=== PATIENT | female | born 1935 | race Caucasian/White ===

== ENCOUNTER → 2016-05-22 | Outpatient (REF) | payer MEDICARE, OTHER ==
[~2016-05-22] MED LIST: ALLEGRA PO; ASTELIN; CALCCHW12 OR; COLA100C2 OR; COUM2.5T11 PO; DULE200A INH; FEMARA PO; FISHCAP PO; FLEEENE4 PR; FLON0.05; FOSAMAX PO; KEFLEX PO; LASIX PO; LISI10TA4 OR; LOTRISONE CREAM TOP; MILKSUS PO; MIRA3350 PO; PERCOCET PO; PRIL20CA9 PO; PRIL40CA OR; SENO8.6T10 PO; TYLE167L PO; VENTAER IN; XANAX PO
[2016-05-22 12:41] LABS: ALBUMIN 3.7 GM/DL (3.2-5.2); ALBUMIN/GLOBULIN RATIO 1.19 (1.00-1.93); ALKALINE PHOSPHATASE 61 U/L (45-117); ALT/SGPT 17 U/L (12-78); ANION GAP 4 MEQ/L (8-16); AST/SGOT 15 U/L (15-37); BILIRUBIN,TOTAL 0.5 MG/DL (0.2-1.0); BLOOD UREA NITROGEN 15 MG/DL (7-18); CALCIUM LEVEL 9.9 MG/DL (8.8-10.2); CARBON DIOXIDE LEVEL 31 MEQ/L (21-32); CHLORIDE LEVEL 107 MEQ/L (98-107); CHOLESTEROL LEVEL 190 MG/DL (<200); CREATININE FOR GFR 0.88 MG/DL (0.55-1.02); GLOMERULAR FILTRATION RATE > 60.0 (>39); GLUCOSE, FASTING 98 MG/DL (83-110); POTASSIUM SERUM 4.5 MEQ/L (3.5-5.1); SODIUM LEVEL 142 MEQ/L (136-145); TOTAL PROTEIN 6.8 GM/DL (6.4-8.2); TRIGLYCERIDES LEVEL 114 MG/DL (<150)
== END ==
LOC: M SFHCPLAZ 08:53
PROVIDERS: ATTEND Internal Medicine
DX: I10 Essential (primary) hypertension (principal); E78.00 Pure hypercholesterolemia, unspecified

== ENCOUNTER → 2016-06-15 | Outpatient (CLI) | payer MEDICARE, BC, OTHER ==
--- NOTE | 2016-06-15 11:50 | REPMRS ---
Patient History The patient states she had a clinical breast exam in 2015.Patient is postmenopausal and has history of breast cancer at age 71. Family history of colorectal cancer in maternal grandfather at age 50 or over and colorectal cancer in mother at age 50 or over. Digital Mammo Screening Bilat: June 15, 2016 - Exam #: [id number] Bilateral CC and MLO view(s) were taken. Technologist: Chela Brumfield, Technologist Prior study comparison: June 12, 2015, bilateral digital mammo screening bilat performed at [facility]. May 22, 2014, bilateral digital mammo screening bilat performed at [facility]. FINDINGS: The breast tissue is heterogeneously dense. This may lower the sensitivity of mammography. There has been no change in the appearance of the mammogram from the prior studies. There is a moderate amount of residual fibroglandular tissue which is fairly symmetric. There is no interval development of dominant mass, areas of architectural distortion, or clustered microcalcification typical of malignancy. ASSESSMENT: BI-RADS/ACR category 1 mammogram. Negative. Recommendation Routine screening mammogram in 1 year (for women over age 40). This mammogram was interpreted with the aid of an FDA-approved computer-aided dectection system. Electronically Signed By: Hardy Benedict MD 06/15/16 [id number]
== END ==
LOC: M RAD 10:04
PROVIDERS: ATTEND Internal Medicine
DX: Z12.31 Encounter for screening mammogram for malignant neoplasm of breast (principal); Z85.3 Personal history of malignant neoplasm of breast; M85.80 Other specified disorders of bone density and structure, unspecified site; Z78.0 Asymptomatic menopausal state

== ENCOUNTER → 2016-06-22 | Outpatient (CLI) | payer MEDICARE, BC ==
--- NOTE | 2016-06-24 08:51 | DEXA ---
AP SPINE L1 - L4 1.117 -0.6 1.2 LT FEMUR TOTAL 0.824 -1.5 0.4 RT FEMUR TOTAL 0.851 -1.2 0.7 TOTAL BODY TOTAL OTHER DUAL FEMUR FRAX* ASSESSMENT Risk factors: Family history (parent hip fracture). 10 year probability of fracture Major osteoporotic fracture 16.3 % Hip fracture 7.1 % COMMENTS: Normal bone densitometry of the spine and hips. The increased density of the spine does not represent a significant change. The decreased density of the left hip does represent a significant change. The decreased density of the right hip does represent a significant change. The density of the spine has increased 0.2% since the initial exam on 2000. The spine density has increased 1.5% since the most recent exam on 06/05/2010. The density of the left hip has decreased 20.7% since the initial exam on 2000. The density of the left hip has decreased 14.4% since the most recent exam on . The density of the right hip has decreased 18.1% since the initial exam on 11/12. The density of the right hip has decreased 10.1% since the most recent exam on 06/05/2010. FOLLOW-UP: Recommendation for the next bone density exam: 5 years. ARNAV
== END ==
LOC: M WHC 12:55
PROVIDERS: ATTEND Internal Medicine
DX: M85.80 Other specified disorders of bone density and structure, unspecified site (principal); Z78.0 Asymptomatic menopausal state

== ENCOUNTER → 2016-07-08 | Outpatient (CLI) | payer MEDICARE, BC ==
--- NOTE | 2016-07-09 05:31 | RADONC ---
RADIATION ONCOLOGY FOLLOWUP NOTE: DATE: 07/08/2016 CHART NUMBER: [id number]. DIAGNOSIS: Left breast cancer. STAGE: I A, [id number]. ECOG PERFORMANCE STATUS: Zero. FOLLOWUP NOTE: Ms. 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 The patient presents today reporting that she is doing quite well with no complaints at this time related to her radiation therapy or disease. She has no breast or bone pain. REVIEW OF SYSTEMS: The patient's review of systems is noncontributory. Denies nausea, vomiting, fevers, chills, night sweats, diplopia, headaches, anxiety or depression, anorexia, weight loss, visual disturbances, chest pain, urinary or bowel difficulties, bone pain, or neurological problems. PHYSICAL EXAMINATION: The patient is a well-developed, well-nourished, white female in no acute distress. HEENT exam is normocephalic, atraumatic. Extraocular movements are intact. There is no palpable cervical, supraclavicular, infraclavicular, axillary, or inguinal lymphadenopathy present. Lungs are clear to auscultation and percussion. Heart has a regular rate and rhythm. Abdomen is benign with no hepatosplenomegaly, masses, or tenderness. Breast examination reveals no masses or discharge bilaterally. Skeletal examination reveals no tenderness to pressure or percussion of the bony skeleton. Extremities reveal no clubbing, cyanosis, or edema. Neurologic exam is grossly intact, as is the remainder of the physical examination. ASSESSMENT: The patient is clinically NAVEED at this time and will be seen by us again in 1 year for further followup. She will also continue to be followed by her other physicians as well. cc: Olegario Kenney MD
== END ==
LOC: M ONCR 13:12
PROVIDERS: ATTEND Radiology Radiation Oncology
DX: C50.912 Malignant neoplasm of unspecified site of left female breast (principal)

== ENCOUNTER 2016-09-22 09:30 | Outpatient (CLI) | payer MEDICARE, BC, OTHER ==
[~2016-09-22] VITALS: Ht 167.6 cm; Wt 65.3 kg
[~2016-09-22 09:30] MED LIST changes: +ALBU83IN INH; +CALC600T60 PO; -COUM2.5T11 PO; +COUM2.5T17 PO; +FLON1SPR; +KEFL500C17 PO; +PENN1SOL2 TD
[2016-09-22] MEDS ORDERED: NS 1,000 ML IV ONE (09:45)
[2016-09-22] MEDS ORDERED: PROPOFOL 200 MG/20 ML VIAL As Ordered ONE (10:49)
[2016-09-22] MEDS ORDERED: LIDOCAINE 2% INJ 100 MG/5 ML SDV (FOR ANES.) As Ordered ONE (10:49)
--- NOTE | 2016-09-22 11:10 | ROOR ---
Patient Name: Ashley Rubio Procedure Date: 09/22/2016 10:48 AM Date of : 1935 Age: 80 Room: [facility] Gender: Female Note Status: Finalized Procedure: Upper Endoscopy + Biopsies Indications: Dysphagia, Heartburn Providers: Alex Phillips MD Referring MD: Olegario Kenney MD Requesting Provider: Medicines: Monitored Anesthesia Care Complications: No immediate complications. Procedure: Pre-Anesthesia Assessment: - The heart rate, respiratory rate, oxygen saturations, blood pressure, adequacy of pulmonary ventilation, and response to care were monitored throughout the procedure. The Endoscope was introduced through the mouth, and advanced to the second part of duodenum. The upper GI endoscopy was accomplished without difficulty. The patient tolerated the procedure well. Findings: The Z-line was irregular and was found 40 cm from the incisors. A medium-sized hiatal hernia was present. Diffuse moderate inflammation characterized by adherent blood, congestion (edema), erosions and erythema was found in the entire examined stomach. Biopsies were taken with a cold forceps for Helicobacter pylori testing. The exam of the duodenum was otherwise normal. Impression: - Z-line irregular, 40 cm from the incisors. - Medium-sized hiatal hernia. - Acute gastritis. Biopsied. - The examination was otherwise normal. Recommendation: - Discharge patient to home. - High fiber diet. - Follow an antireflux regimen. - Continue present medications. - Await pathology results. - Telephone GI clinic for pathology results in 1 week. - The findings and recommendations were discussed with the patient's family. Alex Phillips MD Alex Phillips MD 09/22/2016 11:09:48 AM This report has been signed electronically. Number of Addenda: 0 Note Initiated On: 09/22/2016 10:48 AM Estimated Blood Loss: Estimated blood loss: none.
--- NOTE | 2016-09-22 11:28 | ROOR ---
Patient Name: Ashley Rubio Procedure Date: 09/22/2016 10:49 AM Date of : 1935 Age: 80 Room: [facility] Gender: Female Note Status: Finalized Procedure: Total Colonoscopy to Cecum Indications: Screening patient at increased risk: Family history of colorectal cancer in multiple 1st-degree relatives, Last colonoscopy: 2011 Providers: Alex Phillips MD Referring MD: Olegario Kenney MD Requesting Provider: Medicines: Monitored Anesthesia Care Complications: No immediate complications. Procedure: Pre-Anesthesia Assessment: - The heart rate, respiratory rate, oxygen saturations, blood pressure, adequacy of pulmonary ventilation, and response to care were monitored throughout the procedure. The Colonoscope was introduced through the anus and advanced to the cecum, identified by appendiceal orifice and ileocecal valve. The colonoscopy was performed without difficulty. The patient tolerated the procedure well. Findings: The perianal and digital rectal examinations were normal. Non-bleeding internal hemorrhoids were found during retroflexion. The hemorrhoids were small and Grade I (internal hemorrhoids that do not prolapse). Multiple small and large-mouthed diverticula were found in the recto-sigmoid colon, sigmoid colon and descending colon. The exam was otherwise without abnormality on direct and retroflexion views. Impression: - Non-bleeding internal hemorrhoids. - Diverticulosis in the recto-sigmoid colon, in the sigmoid colon and in the descending colon. - The examination was otherwise normal on direct and retroflexion views. - No specimens collected. - The exam was otherwise normal to the cecum. Recommendation: - Patient has a contact number available for emergencies. The signs and symptoms of potential delayed complications were discussed with the patient. Return to normal activities tomorrow. Written discharge instructions were provided to the patient. - High fiber diet. - Discharge patient to home. - Continue present medications. - Repeat colonoscopy for symptoms only. - Return to referring physician. - The findings and recommendations were discussed with the patient's family. Alex Phillips MD Alex Phillips MD 09/22/2016 11:28:18 AM This report has been signed electronically. Number of Addenda: 0 Note Initiated On: 09/22/2016 10:49 AM Estimated Blood Loss: Estimated blood loss: none.
[2016-09-22 11:50] VITALS: BP 134/67
[2016-12-23] MEDS ORDERED: AMLO5TAB2 PO (17:31)
[2016-12-23] MEDS ORDERED: PLAV1TAB2 PO (17:31)
[2016-12-23] MEDS ORDERED: ZETI10TA30 PO (17:31)
[2016-12-23] MEDS ORDERED: PERC5TAB12 PO (19:10)
== END 2016-09-22 12:10 ==
LOC: M OPP 09:30
PROVIDERS: ATTEND Internal Medicine Gastroenterology
DX: Z12.11 Encounter for screening for malignant neoplasm of colon (principal); K64.0 First degree hemorrhoids; K57.30 Diverticulosis of large intestine without perforation or abscess without bleeding; Z80.0 Family history of malignant neoplasm of digestive organs; R12 Heartburn; R13.10 Dysphagia, unspecified; K22.8 Other specified diseases of esophagus; K44.9 Diaphragmatic hernia without obstruction or gangrene; K29.70 Gastritis, unspecified, without bleeding; M19.90 Unspecified osteoarthritis, unspecified site; E78.5 Hyperlipidemia, unspecified; M54.9 Dorsalgia, unspecified; L30.9 Dermatitis, unspecified; R51 Headache; Z78.0 Asymptomatic menopausal state; J44.9 Chronic obstructive pulmonary disease, unspecified; K21.9 Gastro-esophageal reflux disease without esophagitis; H26.9 Unspecified cataract; J45.909 Unspecified asthma, uncomplicated; Z85.3 Personal history of malignant neoplasm of breast; Z92.3 Personal history of irradiation; Z87.891 Personal history of nicotine dependence; Z88.8 Allergy status to other drugs, medicaments and biological substances; Z79.899 Other long term (current) drug therapy; Z80.1 Family history of malignant neoplasm of trachea, bronchus and lung
CPT/HCPCS: 43239; 88305; G0105

== ENCOUNTER → 2016-12-04 | Outpatient (REF) | payer MEDICARE, OTHER ==
[~2016-12-04] MED LIST changes: +ACET50TAOT PO; +AMLO5TAB2 PO; +CALCCHW8 PO; +PERC5TAB12 PO; +PLAV1TAB2 PO; +REFR0.5D8 OU; +VENTAER INH; +ZETI10TA30 PO
[2016-12-04 11:48] LABS: MEAN CORPUSCULAR HEMOGLOBIN 31.4 pg (27.0-33.0); MEAN CORPUSCULAR VOLUME 95.1 fl (80.0-96.0); PLATELET COUNT, AUTOMATED 209 10^3/uL (150-450); WHITE BLOOD COUNT 5.8 10^3/uL (4.0-10.0)
[2016-12-04 13:06] LABS: ALBUMIN 3.6 GM/DL (3.2-5.2); ALBUMIN/GLOBULIN RATIO 1.13 (1.00-1.93); ALKALINE PHOSPHATASE 64 U/L (45-117); ALT/SGPT 15 U/L (12-78); ANION GAP 7 MEQ/L (8-16); AST/SGOT 16 U/L (15-37); BILIRUBIN,TOTAL 0.5 MG/DL (0.2-1.0); BLOOD UREA NITROGEN 12 MG/DL (7-18); CALCIUM LEVEL 9.7 MG/DL (8.8-10.2); CARBON DIOXIDE LEVEL 29 MEQ/L (21-32); CHLORIDE LEVEL 102 MEQ/L (98-107); GLOMERULAR FILTRATION RATE > 60.0 (>39); GLUCOSE, FASTING 92 MG/DL (83-110); MAGNESIUM LEVEL 2.1 MG/DL (1.8-2.4); POTASSIUM SERUM 4.5 MEQ/L (3.5-5.1); SODIUM LEVEL 138 MEQ/L (136-145); TOTAL PROTEIN 6.8 GM/DL (6.4-8.2)
== END ==
LOC: M SFHCPLAZ 09:44
PROVIDERS: ATTEND Internal Medicine
DX: Z85.3 Personal history of malignant neoplasm of breast (principal); I10 Essential (primary) hypertension

== ENCOUNTER 2016-12-06 13:24 | Emergency (ER) | payer MEDICARE, BC, OTHER ==
[~2016-12-06] VITALS: Ht 165.1 cm; Wt 64.4 kg
[~2016-12-06 13:24] MED LIST changes: -ACET50TAOT PO; -AMLO5TAB2 PO; -CALCCHW8 PO; -PERC5TAB12 PO; -PLAV1TAB2 PO; -REFR0.5D8 OU; -VENTAER INH; -ZETI10TA30 PO
[2016-12-06 14:41] LABS: BASO # 0.1 10^3/uL (0.0-0.2); BASO % 0.8 % (0.0-1.0); EOS % 0.7 % (0.0-3.0); IMMATURE GRANULOCYTE % 0.2 % (0-0); LYMPH # 1.3 10^3/uL (1.5-4.5); LYMPH % 21.5 % (24.0-44.0); MEAN CORPUSCULAR HEMOGLOBIN 31.4 pg (27.0-33.0); MEAN CORPUSCULAR HGB CONC 33.7 g/dl (32.0-36.5); MEAN CORPUSCULAR VOLUME 93.1 fl (80.0-96.0); MONO # 0.4 10^3/uL (0.0-0.8); MONO % 6.2 % (0.0-5.0); NEUTROPHILS # 4.3 10^3/uL (1.8-7.7); NEUTROPHILS % 70.6 % (36.0-66.0); PLATELET COUNT, AUTOMATED 195 10^3/uL (150-450); RED CELL DISTRIBUTION WIDTH 12.9 % (11.5-14.5); WHITE BLOOD COUNT 6.1 10^3/uL (4.0-10.0)
--- NOTE | 2016-12-06 14:50 | REP ---
Portable chest, 02:09 p.m., single frontal view: Comparison 08/30/2015. The lung gonzalez are clear. The cardiac size is normal. The neri, mediastinum, and bony thorax are unremarkable. Impression: Negative portable chest. Signed by Hardy Dial MD 12/06/2016 02:22 P
--- NOTE | 2016-12-06 14:50 | REP ---
CT of the brain without IV contrast: There are no comparisons. There is no hemorrhage. There is no edema, mass effect or midline shift. The cortical stripe is unremarkable. The ventricles and sulci are dilated compatible with diffuse volume loss. There are bilateral subdural hygromas in the frontal areas bilaterally. The visualized paranasal sinuses and mastoid air cells are clear. Impression: There is no hemorrhage, acute infarct or mass. There is diffuse volume loss and there are bilateral frontal subdural hygromas. Signed by Hardy Dial MD 12/06/2016 02:18 P
[2016-12-06 14:52] LABS: INR 0.93
[2016-12-06 15:05] LABS: ALBUMIN 3.5 GM/DL (3.2-5.2); ALBUMIN/GLOBULIN RATIO 1.06 (1.00-1.93); ALKALINE PHOSPHATASE 61 U/L (45-117); ALT/SGPT 16 U/L (12-78); ANION GAP 6 MEQ/L (8-16); AST/SGOT 17 U/L (15-37); BILIRUBIN,DIRECT < 0.1 MG/DL (0.0-0.2); BILIRUBIN,TOTAL 0.4 MG/DL (0.2-1.0); BLOOD UREA NITROGEN 13 MG/DL (7-18); CALCIUM LEVEL 9.7 MG/DL (8.8-10.2); CARBON DIOXIDE LEVEL 29 MEQ/L (21-32); CHLORIDE LEVEL 104 MEQ/L (98-107); CREATININE FOR GFR 0.77 MG/DL (0.55-1.02); GLOMERULAR FILTRATION RATE > 60.0 (>39); GLUCOSE, FASTING 94 MG/DL (83-110); POTASSIUM SERUM 4.4 MEQ/L (3.5-5.1); SODIUM LEVEL 139 MEQ/L (136-145); TOTAL PROTEIN 6.8 GM/DL (6.4-8.2)
[2016-12-06] MEDS ORDERED: VENTAER INH (16:29)
[2016-12-06] MEDS ORDERED: ACET50TAOT PO (16:29)
[2016-12-06] MEDS ORDERED: CALCCHW8 PO (16:29)
[2016-12-06] MEDS ORDERED: REFR0.5D8 OU (16:29)
[2016-12-06] MEDS ORDERED: ASPIRIN 325 MG TAB PO ONE (16:30)
[2016-12-06] MEDS ORDERED: hydrALAZINE INJ 20 MG/ML VIAL IV ONE (17:15)
[2016-12-06] MEDS ORDERED: hydrALAZINE INJ 20 MG/ML VIAL IV STA (19:38)
--- NOTE | 2016-12-06 19:40 | REPUSA ---
CLINICAL HISTORY: CVA. TECHNIQUE: Three dimensional fobe-ck-eyahyj angiography is performed of the [place]. The anatoliy dy was performed without IV contrast agent. FINDINGS: The supraclinoid portions of the internal carotid arteries are of normal shape. The normal bifurcation is seen. The middle cerebral arteries are unremarkable in appearance. There is absence o f A1 segment of left HENNA, a common congenital variant. The posterior circulation is visualized and s hows no evidence of occlusion or aneurysm formation. The basilar tip is seen and shows no aneurysm fo rmation. There is no evidence of beading to suggest vasculitis. 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 MRA of the [place] is otherwise within normal limits. Thank you for your kind referral of this patient.
[2016-12-06] MEDS ORDERED: amLODIPine 5 MG TAB PO ONE (19:45)
--- NOTE | 2016-12-06 19:50 | REPUSA ---
CLINICAL HISTORY: CVA. TECHNIQUE: MRI of the brain was performed without administration of intravenous contrast material. T1 spine echo, T2 fast spin echo, DWI and FLAIR sequences were obtained in sagittal, axial and coronal planes. FINDINGS: Evidence of empty sella. The parasellar regions are unremarkable in appearance. The corpus callosum a nd cerebellar tonsils are of normal configuration and position. There are no intra or extra-axial col lections. There is no mass effect or midline shift. There is no evidence of hematoma formation. There is no hydrocephalus. There is no evidence of restricted diffusion. The brain stem shows no mass effects, infarcts or hemorrhage. There are no cerebellopontine tumors. T he acoustic nerves are symmetrical. No cerebellar intra-axial pathology delineated. The fourth ventri román and aqueduct are normal. No abnormalities of the optic nerves are identified. No dural or subdura l masses or collections are detected. There is evidence for generalized symmetrical dilatation of the ventricles and cortical sulci consist ent with parenchymal atrophy. There are bilateral periventricular and subcortical T2 and FLAIR hyperintensities compatible with chr onic white matter ischemic disease. The visualized arterial structures demonstrate normal appearing flow voids. The VII and VIII nerve bu ndles are visualized and are unremarkable in appearance. Mucosal thickening is seen involving bilateral ethmoid and maxillary sinuses compatible with chronic sinusitis. IMPRESSION: 1. Generalized age-appropriate parenchymal atrophy. Empty sella. 2. Bilateral periventricular and subcortical white matter chronic ischemic changes. 3. Chronic ethmoid and maxillary sinusitis. 4. No evidence of acute intracranial pathology. Thank you for your kind referral of this patient.
[2016-12-06 19:53] VITALS: BP 176/77
--- NOTE | 2016-12-06 20:46 | CR.PDOC ---
[facility] Consultation Consultation DATE OF CONSULTATION: Dec 06, 2016 at 20:30 PRIMARY CARE PHYSICIAN: Dr. Kenney REFERRING PROVIDER: Dr. Thakkar ATTENDING PHYSICIAN: Dr. Thakkar REASON FOR CONSULTATION/CHIEF COMPLAINT: HTN, elevated troponin PRIMARY CARE PROVIDER: Dr. Kenney ATTENDING: Dr. Philippe Ye CHIEF COMPLAINT: Right facial numbness HISTORY OF PRESENT ILLNESS: 81-year-old female past medical history of hypertension, spinal stenosis with right lower extremity radiculopathy, GERD, anxiety/depression, history of left- sided breast cancer who presents with generalized weakness/ Chest tightness. On presentation, patient complaining of right sided facial numbness the V2 region/jaw. Patient states she had chest tightness however this was difficult to explain, with associated nausea. Occurred at the same time she had facial numbness. She denies any pleuritic component. Nonreproducible. Never had CP before. Still persistent. ED had spoken to Dr. Alexandre tao for MRI of the brain. PAST MEDICAL HISTORY: As per HPI PAST SURGICAL HISTORY: Knee surgery, bunionectomy, cholecystectomy, EGD/ colonoscopy SOCIAL HISTORY: Denies alcohol. Occasionally smokes tobacco. No illicit drugs. FAMILY HISTORY: Family history of colon cancer in the mother and brother ALLERGIES: Please see below. REVIEW OF SYSTEMS: HEENT: Denies sore throat/headache CARDIOVASCULAR: + Chest tightness. No palpitations RESPIRATORY: Denies shortness of breath/cough GASTROINTESTINAL: denies nausea/vomiting GENITOURINARY: Denies dysuria/urinary urgency. MUSCULOSKELETAL: Denies myalgias/arthralgias NEUROLOGICAL: Denies any focal weakness HOME MEDICATIONS: Please see below. PHYSICAL EXAMINATION: Vitals: (see below) General: No acute distress, laying comfortably in bed. HEENT: Moist mucous membranes. Neck: No JVD or lymphadenopathy Cardiac: RRR, No murmurs Pulm: Diminished breath sounds at the bases b/l. No wheezing, rhonchi Abd: NT/ND + BS Ext: No edema or cyanosis Neuro: Strength 5/5 BUE and BLE. CN 2-12 intact. With the exception of numbness in V2. No dysarthria or aphasia. F to N intact Negative pronator drift. Negative Babinki. Sensation to fine touch/pinprick intact. NIH 0 LABORATORY DATA: See below. IMAGING: MRI brain 12/06/16 IMPRESSION: 1. Generalized age-appropriate parenchymal atrophy. Empty sella. 2. Bilateral periventricular and subcortical white matter chronic ischemic changes. 3. Chronic ethmoid and maxillary sinusitis. 4. No evidence of acute intracranial pathology. 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 MRA of the [place] is otherwise within normal limits. CT head 12/06/16 Impression: There is no hemorrhage, acute infarct or mass. There is diffuse volume loss and there are bilateral frontal subdural hygromas. MICROBIOLOGY: Please see below. ASSESSMENT/PLAN: 1. NSTEMI/ACS - patient states she has a history of hypertension and is not on any medications. Pt has chest tightness, which is slightly improved. Was given ASA in the ED. Would recommend statin/bb. Spoke with Dr. Grant who recommends transfer to [facility] for cardiac cath. MRI Brain with no CVA. Further recommendation by Director Translational at [facility] prior to transfer. Discussed the above with Dr. Thakkar who will facilitate transfer. 2. HTN- uncontrolled. Would recommended better control of her BP. I have given her Hydralazine IV and started her on amlodipine. 3. Spinal stenosis with chronic lower back pain with right lower extremity radiculopathy at baseline- Will need PT 4. History of left-sided breast cancer with chronic musculoskeletal pain under left breast 5. GERD on PPI 6. History of anxiety/depression continue home meds. Vital Signs/I&O Vital Signs Date Time Temp Pulse Resp B/P (MAP) Pulse Ox O2 Delivery O2 Flow Rate FiO2 12/06/16 19:53 176/77 12/06/16 17:17 52 98 12/06/16 13:47 98.9 18 Room Air Laboratory Data Labs 24H Laboratory Tests 2 12/06/16 14:18: Immature Granulocyte % (Auto) 0.2H, White Blood Count 6.1, Red Blood Count 3.92L , Hemoglobin 12.3, Hematocrit 36.5, Mean Corpuscular Volume 93.1, Mean Corpuscular Hemoglobin 31.4, Mean Corpuscular Hemoglobin Concent 33.7, Red Cell Distribution Width 12.9, Platelet Count 195, Neutrophils (%) (Auto) 70.6H, Lymphocytes (%) (Auto) 21.5L, Monocytes (%) (Auto) 6.2H, Eosinophils (%) (Auto) 0.7, Basophils (%) (Auto) 0.8, Neutrophils # (Auto) 4.3, Lymphocytes # (Auto) 1.3L, Monocytes # (Auto) 0.4, Eosinophils # (Auto) 0.0, Basophils # (Auto) 0.1, Immature Granulocyte # (Auto) 0.0, Nucleated Red Blood Cells % (auto) 0.0, Prothrombin Time 12.5, Prothromb Time International Ratio 0.93, Activated Partial Thromboplast Time 25.3L, Anion Gap 6L, Glomerular Filtration Rate > 60.0 , Calcium Level 9.7, Aspartate Amino Transf (AST/SGOT) 17, Alanine Aminotransferase (ALT/SGPT) 16, Alkaline Phosphatase 61, Total Bilirubin 0.4, Direct Bilirubin < 0.1, Total Creatine Kinase 76, Creatine Kinase MB 1.7, Creatine Kinase MB Relative Index 2.23, Troponin I 0.28H, Total Protein 6.8, Albumin 3.5, Albumin/Globulin Ratio 1.06, Lipase 185 12/06/16 19:44: Total Creatine Kinase 91, Creatine Kinase MB 2.9, Creatine Kinase MB Relative Index 3.18, Troponin I 1.20#H CBC/BMP Laboratory Tests 12/06/16 14:18 Red Blood Count 3.92 L, Mean Corpuscular Volume 93.1, Mean Corpuscular Hemoglobin 31.4, Mean Corpuscular Hemoglobin Concent 33.7, Red Cell Distribution Width 12.9, Neutrophils (%) (Auto) 70.6 H, Lymphocytes (%) (Auto) 21.5 L, Monocytes (%) (Auto) 6.2 H, Eosinophils (%) (Auto) 0.7, Basophils (%) ( Auto) 0.8, Neutrophils # (Auto) 4.3, Lymphocytes # (Auto) 1.3 L, Monocytes # ( Auto) 0.4, Eosinophils # (Auto) 0.0, Basophils # (Auto) 0.1 Allergies Coded Allergies: ENVIROMENTAL (Verified Allergy, Unknown, 07/06/07) Letrozole (Unverified Adverse Reaction, Unknown, elevated cholesterol, elevated BP, 09/16/16) Home Medications Scheduled (Calcium 1200 0226-2800 mg-Unit) 1 Chw Chw, 1 CHW PO DAILY, (Reported) Omeprazole (Prilosec) 20 Mg Cap, 40 MG PO DAILY, (Reported) Scheduled PRN (Flonase Allergy Relief) 50 Mcg/Act Spr, 50 MCG NA BID PRN for CONGESTION, ( Reported) (Pennsaid) 2 % [place]aima, 2 % TD QID PRN for BACK PAIN, (Reported) Acetaminophen (Acetaminophen) 500 Mg Tab, 500 MG PO for PAIN, (Reported) Albuterol Sulfate (Albuterol Sulfate) 2.5 Mg/3 Ml Nebu, 2.5 MG INH QID PRN for WHEEZING, (Reported) Albuterol Sulfate (Ventolin Hfa) 108 Mcg/Act Aer, 2 PUFFS INH QID PRN for SHORTNESS OF BREATH, (Reported) Carboxymethylcellulose Sodium (Refresh Tears) 0.5 % Julio, 1 DROP OU for DRY EYES, (Reported) Polyethylene Glycol (Miralax) 1 Pow Pow, 1 PACK PO DAILYPRN PRN for CONSTIPATION , (Reported) DEBO GORDON MD Dec 06, 2016 20:46
[2016-12-06] MEDS ORDERED: NS 1,000 ML IV SCH (21:00)
[2016-12-06] MEDS ORDERED: ONDANSETRON 4MG/2ML VIAL (J2405) IV ONE (21:30)
[2016-12-06] MEDS ORDERED: MORPHINE 4 MG/ML 1ML SYRINGE IV ONE (21:30)
[2016-12-06] MEDS ORDERED: NITROGLYCERIN 0.4 MG SUBL TABLET SL PRN (22:15)
[2016-12-06] MEDS ORDERED: NS 500 ML IV ONE (22:30)
[2016-12-06 22:48] VITALS: BP 107/53
--- NOTE | 2016-12-07 20:59 | ECGEPIP ---
Stationary ECG Study 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
--- NOTE | 2016-12-07 21:05 | ECGEPIP ---
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
[2016-12-23] MEDS ORDERED: AMLO5TAB2 PO (17:31)
[2016-12-23] MEDS ORDERED: ZETI10TA30 PO (17:31)
[2016-12-23] MEDS ORDERED: PLAV1TAB2 PO (17:31)
[2016-12-23] MEDS ORDERED: PERC5TAB12 PO (19:10)
== END 2016-12-06 22:52 | disposition short-term general hospital (02) ==
LOC: EDBD 13:24 → M ED 13:24
DX: I21.4 Non-ST elevation (NSTEMI) myocardial infarction (principal); I67.82 Cerebral ischemia; Q04.8 Other specified congenital malformations of brain; J32.0 Chronic maxillary sinusitis; J32.2 Chronic ethmoidal sinusitis; R20.2 Paresthesia of skin; I10 Essential (primary) hypertension; J44.9 Chronic obstructive pulmonary disease, unspecified; E78.4 Other hyperlipidemia
CPT/HCPCS: 70450; 70544; 70551; 71010; 80048; 80076; 82550; 82553; 83690; 84484; 85025; 85610; 85730; 86850; 86900; 86901; 93005; 93041; 94760; 96374; 96375; 96376; 99285; J2405

== ENCOUNTER → 2017-01-14 | Outpatient (REF) | payer MEDICARE, OTHER ==
[~2017-01-14] MED LIST changes: +ACET50TAOT PO; +AMLO5TAB2 PO; +CALCCHW8 PO; +PERC5TAB12 PO; +PLAV1TAB2 PO; +REFR0.5D8 OU; +VENTAER INH; +ZETI10TA30 PO
[2017-01-14 13:25] LABS: BLOOD UREA NITROGEN 12 MG/DL (7-18); GLOMERULAR FILTRATION RATE > 60.0 (>39)
== END ==
LOC: M LABDRAW1 10:17
PROVIDERS: ATTEND Physical Medicine & Rehabilitation
DX: M48.061 Spinal stenosis, lumbar region without neurogenic claudication (principal)

== ENCOUNTER → 2017-01-22 | Outpatient (REF) | payer MEDICARE, OTHER ==
[2017-01-22 16:35] LABS: INR 0.89
== END ==
LOC: M LABDRAW1 15:55
PROVIDERS: ATTEND Specialist
DX: Z01.818 Encounter for other preprocedural examination (principal); M51.36 Other intervertebral disc degeneration, lumbar region

== ENCOUNTER → 2017-02-10 | Outpatient (REF) | payer MEDICARE, OTHER ==
[2017-02-10 11:17] LABS: MEAN CORPUSCULAR HEMOGLOBIN 31.6 pg (27.0-33.0); MEAN CORPUSCULAR VOLUME 92.9 fl (80.0-96.0); PLATELET COUNT, AUTOMATED 241 10^3/uL (150-450); RED CELL DISTRIBUTION WIDTH 13.2 % (11.5-14.5); WHITE BLOOD COUNT 6.2 10^3/uL (4.0-10.0)
[2017-02-10 12:06] LABS: ALBUMIN 3.8 GM/DL (3.2-5.2); ALBUMIN/GLOBULIN RATIO 1.12 (1.00-1.93); ALKALINE PHOSPHATASE 46 U/L (45-117); ALT/SGPT 13 U/L (12-78); ANION GAP 9 MEQ/L (8-16); AST/SGOT 15 U/L (7-37); BILIRUBIN,TOTAL 0.5 MG/DL (0.2-1.0); BLOOD UREA NITROGEN 15 MG/DL (7-18); CARBON DIOXIDE LEVEL 28 MEQ/L (21-32); CHLORIDE LEVEL 100 MEQ/L (98-107); CHOLESTEROL LEVEL 178 MG/DL (<200); CREATININE FOR GFR 0.77 MG/DL (0.55-1.02); GLOMERULAR FILTRATION RATE > 60.0 (>39); GLUCOSE, FASTING 95 MG/DL (83-110); MAGNESIUM LEVEL 2.1 MG/DL (1.8-2.4); POTASSIUM SERUM 4.2 MEQ/L (3.5-5.1); SODIUM LEVEL 137 MEQ/L (136-145); TOTAL PROTEIN 7.2 GM/DL (6.4-8.2); TRIGLYCERIDES LEVEL 113 MG/DL (<150)
== END ==
LOC: M SFHCPLAZ 09:32
PROVIDERS: ATTEND Internal Medicine
DX: E78.00 Pure hypercholesterolemia, unspecified (principal); Z85.3 Personal history of malignant neoplasm of breast; I10 Essential (primary) hypertension

== ENCOUNTER → 2017-03-02 | Outpatient (REF) | payer MEDICARE, OTHER ==
[2017-03-02 16:40] LABS: CREATININE FOR GFR 0.83 MG/DL (0.55-1.02); GLOMERULAR FILTRATION RATE > 60.0 (>39)
[2017-03-02 16:40] LABS: BLOOD UREA NITROGEN 12 MG/DL (7-18)
== END ==
LOC: M LABDRAW1 14:53
DX: M48.061 Spinal stenosis, lumbar region without neurogenic claudication (principal)
CPT/HCPCS: 82565

== ENCOUNTER → 2017-03-31 | Outpatient (CLI) | payer MEDICARE, OTHER | LOC: M RAD 09:02 | DX: R91.8 Other nonspecific abnormal finding of lung field (principal) | CPT/HCPCS: 71250 ==

== ENCOUNTER → 2017-04-07 | Outpatient (CLI) | payer MEDICARE, BC, OTHER | LOC: M RAD 09:36 | DX: M19.011 Primary osteoarthritis, right shoulder (principal); Z85.3 Personal history of malignant neoplasm of breast; Z96.653 Presence of artificial knee joint, bilateral; Z78.0 Asymptomatic menopausal state | CPT/HCPCS: 78306 ==

== ENCOUNTER 2017-05-06 10:43 | Emergency (ER) | payer MEDICARE, BC, OTHER ==
[2017-05-06] MEDS: NS 1,000 ML IV (11:04)
[2017-05-06 11:30] LABS: BASO # 0.1 10^3/uL (0.0-0.2); BASO % 1.1 % (0.0-1.0); EOS % 0.4 % (0.0-3.0); HEMATOCRIT 36.7 % (36.0-47.0); HEMOGLOBIN 12.7 g/dl (12.0-16.0); IMMATURE GRANULOCYTE % 0.4 % (0-3.0); LYMPH # 1.2 10^3/uL (1.5-4.5); LYMPH % 20.4 % (24.0-44.0); MEAN CORPUSCULAR HEMOGLOBIN 32.6 pg (27.0-33.0); MEAN CORPUSCULAR HGB CONC 34.6 g/dl (32.0-36.5); MEAN CORPUSCULAR VOLUME 94.3 fl (80.0-96.0); MONO # 0.3 10^3/uL (0.0-0.8); NEUTROPHILS # 4.1 10^3/uL (1.8-7.7); NEUTROPHILS % 71.7 % (36.0-66.0); PLATELET COUNT, AUTOMATED 207 10^3/uL (150-450); RED BLOOD COUNT 3.89 10^6/uL (4.00-5.40); RED CELL DISTRIBUTION WIDTH 12.9 % (11.5-14.5); WHITE BLOOD COUNT 5.7 10^3/uL (4.0-10.0)
[2017-05-06 11:42] LABS: INR 0.94; PARTIAL THROMBOPLASTIN TIME 23.4 SECONDS (26.8-37.9); PROTHROMBIN TIME 12.6 SECONDS (12.4-14.5)
[2017-05-06 11:54] LABS: ALBUMIN 3.8 GM/DL (3.2-5.2); ALBUMIN/GLOBULIN RATIO 1.09 (1.00-1.93); ALKALINE PHOSPHATASE 49 U/L (45-117); ALT/SGPT 10 U/L (12-78); ANION GAP 6 MEQ/L (8-16); AST/SGOT 12 U/L (7-37); BILIRUBIN,DIRECT < 0.1 MG/DL (0.0-0.2); BILIRUBIN,TOTAL 0.4 MG/DL (0.2-1.0); BLOOD UREA NITROGEN 12 MG/DL (7-18); CALCIUM LEVEL 9.4 MG/DL (8.8-10.2); CARBON DIOXIDE LEVEL 27 MEQ/L (21-32); CHLORIDE LEVEL 102 MEQ/L (98-107); CPK CREATINE PHOSPHOKINASE 66 U/L (26-192); GLUCOSE, FASTING 97 MG/DL (70-100); POTASSIUM SERUM 4.2 MEQ/L (3.5-5.1); SODIUM LEVEL 135 MEQ/L (136-145); TOTAL PROTEIN 7.3 GM/DL (6.4-8.2); TROPONIN I < 0.02 NG/ML (< 0.10)
[2017-05-06 11:58] LABS: CK-MB VALUE MASS 1.1 NG/ML (<3.6); CREATININE FOR GFR 0.81 MG/DL (0.55-1.30); GLOMERULAR FILTRATION RATE > 60.0 (>39); MB/CK RELATIVE INDEX 1.66 (< OR =4)
[2017-05-06] MEDS: IPRATROPIUM 0.5MG/ALBUTEROL 2.5MG INH SOL UD 3ML (DUONEB)(J7620) NEB (12:02)
[2017-05-06] MEDS: MECLIZINE 25 MG TABLET PO (13:33)
== END 2017-05-06 13:51 | disposition home or self-care (01) ==
LOC: M ED 10:43
DX: M54.9 Dorsalgia, unspecified (principal); R42 Dizziness and giddiness; J44.9 Chronic obstructive pulmonary disease, unspecified; K21.9 Gastro-esophageal reflux disease without esophagitis; F41.9 Anxiety disorder, unspecified; F17.200 Nicotine dependence, unspecified, uncomplicated; Z79.01 Long term (current) use of anticoagulants; Z79.899 Other long term (current) drug therapy; Z88.8 Allergy status to other drugs, medicaments and biological substances; Z91.048 Other nonmedicinal substance allergy status; Z87.19 Personal history of other diseases of the digestive system; Z86.73 Personal history of transient ischemic attack (TIA), and cerebral infarction without residual deficits; Z98.890 Other specified postprocedural states
CPT/HCPCS: 71045

== ENCOUNTER → 2017-05-25 | Outpatient (CLI) | payer MEDICARE, OTHER | LOC: M PAIN 14:00 | DX: M47.817 Spondylosis without myelopathy or radiculopathy, lumbosacral region (principal); G89.29 Other chronic pain; H81.10 Benign paroxysmal vertigo, unspecified ear; E78.00 Pure hypercholesterolemia, unspecified; I10 Essential (primary) hypertension; R73.01 Impaired fasting glucose; J44.9 Chronic obstructive pulmonary disease, unspecified; M19.90 Unspecified osteoarthritis, unspecified site; K21.9 Gastro-esophageal reflux disease without esophagitis; M85.80 Other specified disorders of bone density and structure, unspecified site; F17.200 Nicotine dependence, unspecified, uncomplicated; Z79.01 Long term (current) use of anticoagulants; Z79.899 Other long term (current) drug therapy; Z88.8 Allergy status to other drugs, medicaments and biological substances; Z96.651 Presence of right artificial knee joint; Z95.9 Presence of cardiac and vascular implant and graft, unspecified; Z86.73 Personal history of transient ischemic attack (TIA), and cerebral infarction without residual deficits; Z85.3 Personal history of malignant neoplasm of breast | CPT/HCPCS: G0463 ==

== ENCOUNTER → 2017-06-09 | Outpatient (REF) | payer MEDICARE, OTHER ==
[2017-06-09 12:14] LABS: ALBUMIN 3.7 GM/DL (3.2-5.2); ALBUMIN/GLOBULIN RATIO 1.12 (1.00-1.93); ALKALINE PHOSPHATASE 55 U/L (45-117); ALT/SGPT 13 U/L (12-78); ANION GAP 4 MEQ/L (8-16); AST/SGOT 16 U/L (7-37); BILIRUBIN,TOTAL 0.4 MG/DL (0.2-1.0); BLOOD UREA NITROGEN 15 MG/DL (7-18); CALCIUM LEVEL 9.6 MG/DL (8.8-10.2); CARBON DIOXIDE LEVEL 31 MEQ/L (21-32); CHLORIDE LEVEL 104 MEQ/L (98-107); CREATININE FOR GFR 0.83 MG/DL (0.55-1.30); GLOMERULAR FILTRATION RATE > 60.0 (>39); GLUCOSE, FASTING 91 MG/DL (70-100); MAGNESIUM LEVEL 2.4 MG/DL (1.8-2.4); POTASSIUM SERUM 4.1 MEQ/L (3.5-5.1); SODIUM LEVEL 139 MEQ/L (136-145)
== END ==
LOC: M SFHCPLAZ 09:38
DX: I10 Essential (primary) hypertension (principal)
CPT/HCPCS: 83735

== ENCOUNTER → 2017-06-16 | Outpatient (REF) | payer MEDICARE, OTHER ==
[2017-06-16 12:51] LABS: RHEUMATOID FACTOR QUANT < 10.0 IU/ML (<15.0)
[2017-06-16 12:51] LABS: C REACTIVE PROTEIN QUANTITATIV < 0.30 MG/DL (0.00-0.30)
[2017-06-16 13:01] LABS: ERYTHROCYTE SEDIMENTATION RATE 23 mm/hr (0-30)
[2017-06-18 00:07] LABS: CYCLIC CITRULLINATED PEPTIDE 6 units (0-19)
[2017-06-18 00:07] LABS: ANA (HEP2) Positive (.); Lyme Disease IgG/IgM Antibodie <0.91 ISR (0.00-0.90); Lyme Disease IgM Ab Quantitati <0.80 index (0.00-0.79)
== END ==
LOC: M SFHCPLAZ 09:35
DX: M15.0 Primary generalized (osteo)arthritis (principal)
CPT/HCPCS: 86140

== ENCOUNTER 2017-06-29 10:29 | Inpatient (IN) | payer MEDICARE, BC, OTHER ==
[2017-06-29] MEDS: OMEPRAZOLE 20 MG CAP PO (09:00)
[2017-06-29] MEDS ORDERED: ALBUTEROL SULFATE 2.5 MG/0.5 ML INH NEB SOLN As Ordered (10:33)
[2017-06-29] MEDS ORDERED: IPRATROPIUM 0.5MG/ALBUTEROL 2.5MG INH SOL UD 3ML (DUONEB)(J7620) As Ordered (10:33)
[2017-06-29] MEDS: IPRATROPIUM 0.5MG/ALBUTEROL 2.5MG INH SOL UD 3ML (DUONEB)(J7620) NEB (10:43)
[2017-06-29] MEDS: ALBUTEROL SULFATE 2.5 MG/0.5 ML INH NEB SOLN INH (10:43)
[2017-06-29] MEDS: NS 500 ML IV (10:45)
[2017-06-29] MEDS: methylPREDNISolone INJ 125 MG/2 ML VIAL (J2930) IV (10:45)
[2017-06-29] MEDS: ONDANSETRON 4MG/2ML VIAL (J2405) IV (11:00)
[2017-06-29 11:08] LABS: BASO # 0.1 10^3/uL (0.0-0.2); EOS # 0.1 10^3/uL (0.0-0.50); EOS % 1.4 % (0.0-3.0); HEMATOCRIT 31.6 % (36.0-47.0); HEMOGLOBIN 10.9 g/dl (12.0-15.5); IMMATURE GRANULOCYTE % 0.4 % (0-3.0); LYMPH % 19.7 % (24.0-44.0); MEAN CORPUSCULAR HEMOGLOBIN 32.4 pg (27.0-33.0); MEAN CORPUSCULAR HGB CONC 34.5 g/dl (32.0-36.5); MONO # 0.4 10^3/uL (0.0-0.8); NEUTROPHILS # 3.5 10^3/uL (1.8-7.7); NEUTROPHILS % 70.5 % (36.0-66.0); PLATELET COUNT, AUTOMATED 207 10^3/uL (150-450); RED BLOOD COUNT 3.36 10^6/uL (4.00-5.40); RED CELL DISTRIBUTION WIDTH 12.6 % (11.5-14.5)
[2017-06-29] MEDS: MORPHINE 2 MG/ML 1ML SYRINGE (J2270) IV ×2 (11:12→12:27)
[2017-06-29 11:19] LABS: INR 0.93; PROTHROMBIN TIME 12.5 SECONDS (12.4-14.5)
[2017-06-29 11:28] LABS: ALBUMIN 3.2 GM/DL (3.2-5.2); ALBUMIN/GLOBULIN RATIO 0.91 (1.00-1.93); ALKALINE PHOSPHATASE 54 U/L (45-117); ALT/SGPT 29 U/L (12-78); ANION GAP 5 MEQ/L (8-16); AST/SGOT 26 U/L (7-37); BILIRUBIN,DIRECT 0.1 MG/DL (0.0-0.2); BILIRUBIN,TOTAL 0.4 MG/DL (0.2-1.0); BLOOD UREA NITROGEN 11 MG/DL (7-18); CARBON DIOXIDE LEVEL 26 MEQ/L (21-32); CHLORIDE LEVEL 104 MEQ/L (98-107); CPK CREATINE PHOSPHOKINASE 177 U/L (26-192); CREATININE FOR GFR 0.81 MG/DL (0.55-1.30); FREE T4 1.04 NG/DL (0.76-1.46); GLOMERULAR FILTRATION RATE > 60.0 (>39); GLUCOSE, FASTING 93 MG/DL (70-100); LIPASE 164 U/L (73-393); POTASSIUM SERUM 4.7 MEQ/L (3.5-5.1); SODIUM LEVEL 135 MEQ/L (136-145); TOTAL PROTEIN 6.7 GM/DL (6.4-8.2); TROPONIN I 0.06 NG/ML (< 0.10)
[2017-06-29 11:34] LABS: CK-MB VALUE MASS 2.8 NG/ML (<3.6); MB/CK RELATIVE INDEX 1.58 (< OR =4); NT-PRO BNP 2014 PG/ML (<450)
[2017-06-29] MEDS: FUROSEMIDE 20 MG/2 ML VIAL (J1940) IV (12:27)
[2017-06-29] MEDS: GI COCKTAIL 50ML BTL(HYOSCYAMINE/MAALOX/LIDOCAINE VISCOUS)(1:3:1) PO (12:57)
[2017-06-29] MEDS ORDERED: ALBUTEROL SULFATE 2.5 MG/0.5 ML INH NEB SOLN NEB (13:45)
[2017-06-29] MEDS ORDERED: ISOVUE-370 76% 100ML VIAL (Q9967) As Ordered (13:50)
[2017-06-29] MEDS ORDERED: FLUTICASONE PROP 0.05% NASAL SPRAY 16 GM (FLONASE) (15:30)
[2017-06-29] MEDS: BISACODYL 5 MG TAB PO (16:38)
[2017-06-29] MEDS: CLOPIDOGREL 75 MG TAB PO (16:39)
[2017-06-29] MEDS: METOPROLOL SUCC *XL* 12.5MG PER 1/2 TAB (TopROL *XL*) PO (16:39)
[2017-06-29] MEDS: HEPARIN SOD (PORCINE) 5000 UNITS/ML VIAL SC ×2 (16:40→21:27)
[2017-06-29] MEDS: PERCOCET 5MG/325MG TAB PO (16:40)
[2017-06-29] MEDS: PARoxetine 20 MG TAB PO (17:33)
[2017-06-29 19:24] LABS: CK-MB VALUE MASS 3.4 NG/ML (<3.6); CPK CREATINE PHOSPHOKINASE 178 U/L (26-192); MB/CK RELATIVE INDEX 1.91 (< OR =4); TROPONIN I 0.06 NG/ML (< 0.10)
[2017-06-29] MEDS: EZETIMIBE 10 MG TAB (ZETIA) PO (21:26)
[2017-06-29] MEDS: ISOSORBIDE DIN. (ISORDIL) 20 MG TAB PO (21:27)
[2017-06-29] MEDS: LISINOPRIL *2.5 MG* TAB PO (21:27)
[2017-06-30] MEDS: PERCOCET 5MG/325MG TAB PO ×3 (00:11→15:45)
[2017-06-30] MEDS: ONDANSETRON 4MG/2ML VIAL (J2405) IV (00:11)
[2017-06-30] MEDS: ACETAMINOPHEN TAB 650MG DOSE (2X325MG) PO ×2 (04:50→22:57)
[2017-06-30 05:24] LABS: HEMATOCRIT 30.6 % (36.0-47.0); HEMOGLOBIN 10.2 g/dl (12.0-15.5); MEAN CORPUSCULAR HEMOGLOBIN 31.5 pg (27.0-33.0); MEAN CORPUSCULAR HGB CONC 33.3 g/dl (32.0-36.5); MEAN CORPUSCULAR VOLUME 94.4 fl (80.0-96.0); PLATELET COUNT, AUTOMATED 225 10^3/uL (150-450); RED BLOOD COUNT 3.24 10^6/uL (4.00-5.40); RED CELL DISTRIBUTION WIDTH 12.4 % (11.5-14.5)
[2017-06-30] MEDS: HEPARIN SOD (PORCINE) 5000 UNITS/ML VIAL SC ×3 (05:44→21:04)
[2017-06-30 05:46] LABS: FERRITIN 148 NG/ML (8-252); IRON (FE) 66 UG/DL (50-170); PERCENT SATURATION 28.4 % (13.2-45.0); TOTAL IRON BINDING CAPACITY 232 UG/DL (250-450)
[2017-06-30 05:49] LABS: ANION GAP 2 MEQ/L (8-16); BLOOD UREA NITROGEN 16 MG/DL (7-18); CALCIUM LEVEL 9.1 MG/DL (8.8-10.2); CARBON DIOXIDE LEVEL 30 MEQ/L (21-32); CHLORIDE LEVEL 105 MEQ/L (98-107); CK-MB VALUE MASS 3.6 NG/ML (<3.6); CPK CREATINE PHOSPHOKINASE 111 U/L (26-192); CREATININE FOR GFR 0.89 MG/DL (0.55-1.30); GLOMERULAR FILTRATION RATE > 60.0 (>39); GLUCOSE, FASTING 106 MG/DL (70-100); MAGNESIUM LEVEL 2.4 MG/DL (1.8-2.4); MB/CK RELATIVE INDEX 3.24 (< OR =4); POTASSIUM SERUM 4.9 MEQ/L (3.5-5.1); SODIUM LEVEL 137 MEQ/L (136-145); TROPONIN I 0.05 NG/ML (< 0.10)
[2017-06-30 08:58] LABS: FOLATE 4.9 NG/ML (>5.4)
[2017-06-30 09:03] LABS: VITAMIN B12 LEVEL 257 PG/ML (247-911)
[2017-06-30] MEDS: CLOPIDOGREL 75 MG TAB PO (09:12)
[2017-06-30] MEDS: OMEPRAZOLE 20 MG CAP PO (09:12)
[2017-06-30] MEDS: ISOSORBIDE DIN. (ISORDIL) 20 MG TAB PO ×2 (09:12→21:03)
[2017-06-30] MEDS: PARoxetine 20 MG TAB PO (09:13)
[2017-06-30] MEDS: METOPROLOL SUCC *XL* 12.5MG PER 1/2 TAB (TopROL *XL*) PO (09:13)
[2017-06-30] MEDS: ASPIRIN 81 MG ENTERIC TAB PO (09:13)
[2017-06-30] MEDS: METOCLOPRAMIDE HCL LIQUID 10 MG/10 ML UDC PO ×3 (12:00→21:04)
[2017-06-30] MEDS ORDERED: E-Z-PAQUE 96% w/w SUSP 176GM BTL As Ordered ×2 (14:06→15:00)
[2017-06-30] MEDS ORDERED: E-Z-HD 98% w/w 340GM SUSP BTL As Ordered (14:06)
[2017-06-30] MEDS ORDERED: E-Z-GAS II EFFERVESCENT PACKET (SODIUM BICARB./CITRIC ACID/SIMETHICONE) As Ordered (14:06)
[2017-06-30] MEDS: MIRALAX *UNIT DOSE* 17GM PACKET PO (15:45)
[2017-06-30] MEDS: BISACODYL 5 MG TAB PO (21:02)
[2017-06-30] MEDS: EZETIMIBE 10 MG TAB (ZETIA) PO (21:03)
[2017-06-30] MEDS: LISINOPRIL *2.5 MG* TAB PO (21:04)
[2017-07-01] MEDS: HEPARIN SOD (PORCINE) 5000 UNITS/ML VIAL SC ×3 (05:36→21:53)
[2017-07-01 05:54] LABS: HEMATOCRIT 29.7 % (36.0-47.0); HEMOGLOBIN 9.9 g/dl (12.0-15.5); MEAN CORPUSCULAR HEMOGLOBIN 31.6 pg (27.0-33.0); MEAN CORPUSCULAR HGB CONC 33.3 g/dl (32.0-36.5); MEAN CORPUSCULAR VOLUME 94.9 fl (80.0-96.0); PLATELET COUNT, AUTOMATED 231 10^3/uL (150-450); RED BLOOD COUNT 3.13 10^6/uL (4.00-5.40); RED CELL DISTRIBUTION WIDTH 12.4 % (11.5-14.5); WHITE BLOOD COUNT 6.1 10^3/uL (4.0-10.0)
[2017-07-01 06:18] LABS: ANION GAP 4 MEQ/L (8-16); BLOOD UREA NITROGEN 20 MG/DL (7-18); CALCIUM LEVEL 8.7 MG/DL (8.8-10.2); CARBON DIOXIDE LEVEL 29 MEQ/L (21-32); CHLORIDE LEVEL 102 MEQ/L (98-107); CREATININE FOR GFR 0.83 MG/DL (0.55-1.30); GLOMERULAR FILTRATION RATE > 60.0 (>39); GLUCOSE, FASTING 93 MG/DL (70-100); MAGNESIUM LEVEL 2.2 MG/DL (1.8-2.4); POTASSIUM SERUM 4.5 MEQ/L (3.5-5.1); SODIUM LEVEL 135 MEQ/L (136-145)
[2017-07-01] MEDS: METOCLOPRAMIDE HCL LIQUID 10 MG/10 ML UDC PO ×4 (07:31→21:52)
[2017-07-01] MEDS: OMEPRAZOLE 20 MG CAP PO (09:42)
[2017-07-01] MEDS: ISOSORBIDE DIN. (ISORDIL) 20 MG TAB PO ×2 (09:42→21:53)
[2017-07-01] MEDS: PARoxetine 20 MG TAB PO (09:42)
[2017-07-01] MEDS: METOPROLOL SUCC *XL* 12.5MG PER 1/2 TAB (TopROL *XL*) PO (09:45)
[2017-07-01] MEDS: ASPIRIN 81 MG ENTERIC TAB PO (09:45)
[2017-07-01] MEDS: CLOPIDOGREL 75 MG TAB PO (09:46)
[2017-07-01] MEDS: CYCLOBENZAPRINE 5MG TABLET PO (21:52)
[2017-07-01] MEDS: LISINOPRIL *2.5 MG* TAB PO (21:53)
[2017-07-01] MEDS: IMIPRAMINE 25 MG TAB PO (21:53)
[2017-07-01] MEDS: PERCOCET 5MG/325MG TAB PO (21:54)
[2017-07-01] MEDS: EZETIMIBE 10 MG TAB (ZETIA) PO (21:54)
[2017-07-02] MEDS: HEPARIN SOD (PORCINE) 5000 UNITS/ML VIAL SC ×3 (05:16→20:58)
[2017-07-02 06:36] LABS: HEMATOCRIT 30.5 % (36.0-47.0); HEMOGLOBIN 10.3 g/dl (12.0-15.5); MEAN CORPUSCULAR HEMOGLOBIN 31.3 pg (27.0-33.0); MEAN CORPUSCULAR HGB CONC 33.8 g/dl (32.0-36.5); MEAN CORPUSCULAR VOLUME 92.7 fl (80.0-96.0); PLATELET COUNT, AUTOMATED 242 10^3/uL (150-450); RED BLOOD COUNT 3.29 10^6/uL (4.00-5.40); RED CELL DISTRIBUTION WIDTH 12.3 % (11.5-14.5)
[2017-07-02 07:37] LABS: ANION GAP 5 MEQ/L (8-16); BLOOD UREA NITROGEN 12 MG/DL (7-18); CALCIUM LEVEL 9.2 MG/DL (8.8-10.2); CARBON DIOXIDE LEVEL 28 MEQ/L (21-32); CHLORIDE LEVEL 102 MEQ/L (98-107); GLOMERULAR FILTRATION RATE > 60.0 (>39); GLUCOSE, FASTING 91 MG/DL (70-100); MAGNESIUM LEVEL 2.2 MG/DL (1.8-2.4); SODIUM LEVEL 135 MEQ/L (136-145)
[2017-07-02] MEDS: ASPIRIN 81 MG ENTERIC TAB PO (08:39)
[2017-07-02] MEDS: METOCLOPRAMIDE HCL LIQUID 10 MG/10 ML UDC PO ×4 (08:39→20:58)
[2017-07-02] MEDS: CLOPIDOGREL 75 MG TAB PO (08:39)
[2017-07-02] MEDS: OMEPRAZOLE 20 MG CAP PO (08:39)
[2017-07-02] MEDS: METOPROLOL SUCC *XL* 12.5MG PER 1/2 TAB (TopROL *XL*) PO (08:39)
[2017-07-02] MEDS: ISOSORBIDE DIN. (ISORDIL) 20 MG TAB PO ×2 (09:59→20:59)
[2017-07-02] MEDS ORDERED: VARIBAR NECTAR 40% w/v 240ML SUSP BTL As Ordered (11:21)
[2017-07-02] MEDS ORDERED: VARIBAR PUDDING 40% w/v 230ML TUBE As Ordered (11:21)
[2017-07-02] MEDS ORDERED: E-Z-PAQUE 96% w/w SUSP 176GM BTL As Ordered (11:22)
[2017-07-02] MEDS: IMIPRAMINE 25 MG TAB PO (20:58)
[2017-07-02] MEDS: CYCLOBENZAPRINE 5MG TABLET PO (20:59)
[2017-07-02] MEDS: EZETIMIBE 10 MG TAB (ZETIA) PO (20:59)
[2017-07-02] MEDS: LISINOPRIL *2.5 MG* TAB PO (20:59)
[2017-07-02] MEDS: PERCOCET 5MG/325MG TAB PO (20:59)
[2017-07-02] MEDS: BISACODYL 5 MG TAB PO (21:00)
[2017-07-03] MEDS: HEPARIN SOD (PORCINE) 5000 UNITS/ML VIAL SC ×3 (05:30→22:32)
[2017-07-03 06:12] LABS: HEMATOCRIT 29.8 % (36.0-47.0); MEAN CORPUSCULAR HEMOGLOBIN 31.5 pg (27.0-33.0); MEAN CORPUSCULAR HGB CONC 33.6 g/dl (32.0-36.5); PLATELET COUNT, AUTOMATED 241 10^3/uL (150-450); RED BLOOD COUNT 3.17 10^6/uL (4.00-5.40); RED CELL DISTRIBUTION WIDTH 12.3 % (11.5-14.5); WHITE BLOOD COUNT 5.1 10^3/uL (4.0-10.0)
[2017-07-03 06:30] LABS: ANION GAP 6 MEQ/L (8-16); BLOOD UREA NITROGEN 11 MG/DL (7-18); CALCIUM LEVEL 8.9 MG/DL (8.8-10.2); CARBON DIOXIDE LEVEL 28 MEQ/L (21-32); CHLORIDE LEVEL 102 MEQ/L (98-107); CREATININE FOR GFR 0.73 MG/DL (0.55-1.30); GLOMERULAR FILTRATION RATE > 60.0 (>39); GLUCOSE, FASTING 94 MG/DL (70-100); MAGNESIUM LEVEL 2.3 MG/DL (1.8-2.4); POTASSIUM SERUM 4.1 MEQ/L (3.5-5.1); SODIUM LEVEL 136 MEQ/L (136-145)
[2017-07-03] MEDS: METOCLOPRAMIDE HCL LIQUID 10 MG/10 ML UDC PO ×4 (08:42→22:32)
[2017-07-03] MEDS: CLOPIDOGREL 75 MG TAB PO (09:07)
[2017-07-03] MEDS: OMEPRAZOLE 20 MG CAP PO (09:07)
[2017-07-03] MEDS: ASPIRIN 81 MG ENTERIC TAB PO (09:07)
[2017-07-03] MEDS: METOPROLOL SUCC *XL* 12.5MG PER 1/2 TAB (TopROL *XL*) PO (09:07)
[2017-07-03] MEDS: ISOSORBIDE DIN. (ISORDIL) 20 MG TAB PO ×2 (09:08→21:00)
[2017-07-03] MEDS: LISINOPRIL *2.5 MG* TAB PO (21:00)
[2017-07-03] MEDS: IMIPRAMINE 25 MG TAB PO (22:32)
[2017-07-03] MEDS: EZETIMIBE 10 MG TAB (ZETIA) PO (22:34)
[2017-07-03] MEDS: PERCOCET 5MG/325MG TAB PO (22:35)
[2017-07-04] MEDS: HEPARIN SOD (PORCINE) 5000 UNITS/ML VIAL SC ×3 (05:49→21:32)
[2017-07-04] MEDS: METOCLOPRAMIDE HCL LIQUID 10 MG/10 ML UDC PO ×4 (08:37→21:31)
[2017-07-04] MEDS: METOPROLOL SUCC *XL* 12.5MG PER 1/2 TAB (TopROL *XL*) PO (08:37)
[2017-07-04] MEDS: OMEPRAZOLE 20 MG CAP PO (08:38)
[2017-07-04] MEDS: ISOSORBIDE DIN. (ISORDIL) 20 MG TAB PO ×2 (08:38→21:31)
[2017-07-04] MEDS: ASPIRIN 81 MG ENTERIC TAB PO (08:38)
[2017-07-04] MEDS: CLOPIDOGREL 75 MG TAB PO (08:38)
[2017-07-04] MEDS: LISINOPRIL *2.5 MG* TAB PO (21:00)
[2017-07-04] MEDS: IMIPRAMINE 25 MG TAB PO (21:31)
[2017-07-04] MEDS: EZETIMIBE 10 MG TAB (ZETIA) PO (21:31)
[2017-07-04] MEDS: PERCOCET 5MG/325MG TAB PO (21:32)
[2017-07-05] MEDS: HEPARIN SOD (PORCINE) 5000 UNITS/ML VIAL SC ×2 (06:09→13:34)
[2017-07-05] MEDS: ACETAMINOPHEN TAB 650MG DOSE (2X325MG) PO ×2 (06:25→13:34)
[2017-07-05 06:46] LABS: HEMATOCRIT 29.9 % (36.0-47.0); HEMOGLOBIN 10.1 g/dl (12.0-15.5); MEAN CORPUSCULAR HEMOGLOBIN 31.7 pg (27.0-33.0); MEAN CORPUSCULAR HGB CONC 33.8 g/dl (32.0-36.5); MEAN CORPUSCULAR VOLUME 93.7 fl (80.0-96.0); PLATELET COUNT, AUTOMATED 249 10^3/uL (150-450); RED BLOOD COUNT 3.19 10^6/uL (4.00-5.40); RED CELL DISTRIBUTION WIDTH 12.5 % (11.5-14.5); WHITE BLOOD COUNT 4.2 10^3/uL (4.0-10.0)
[2017-07-05 07:14] LABS: ANION GAP 5 MEQ/L (8-16); BLOOD UREA NITROGEN 10 MG/DL (7-18); CALCIUM LEVEL 8.9 MG/DL (8.8-10.2); CARBON DIOXIDE LEVEL 28 MEQ/L (21-32); CHLORIDE LEVEL 102 MEQ/L (98-107); CREATININE FOR GFR 0.77 MG/DL (0.55-1.30); GLOMERULAR FILTRATION RATE > 60.0 (>39); GLUCOSE, FASTING 92 MG/DL (70-100); MAGNESIUM LEVEL 2.1 MG/DL (1.8-2.4); POTASSIUM SERUM 4.1 MEQ/L (3.5-5.1); SODIUM LEVEL 135 MEQ/L (136-145)
[2017-07-05] MEDS: METOCLOPRAMIDE HCL LIQUID 10 MG/10 ML UDC PO ×2 (08:18→12:05)
[2017-07-05] MEDS: METOPROLOL SUCC *XL* 12.5MG PER 1/2 TAB (TopROL *XL*) PO (08:19)
[2017-07-05] MEDS: ISOSORBIDE DIN. (ISORDIL) 20 MG TAB PO (08:19)
[2017-07-05] MEDS: OMEPRAZOLE 20 MG CAP PO (08:19)
[2017-07-05] MEDS: CLOPIDOGREL 75 MG TAB PO (08:19)
[2017-07-05] MEDS: ASPIRIN 81 MG ENTERIC TAB PO (08:19)
== END 2017-07-05 14:15 | disposition home health service (06) | DRG 392 ==
LOC: M MS5PR 07-01 17:05 → M ED 10:29 → M ED INP 13:39 → M PCU 15:22
DX: K21.9 Gastro-esophageal reflux disease without esophagitis (principal); I51.81 Takotsubo syndrome; R13.10 Dysphagia, unspecified; R07.89 Other chest pain; I10 Essential (primary) hypertension; Z95.3 Presence of xenogenic heart valve; E78.5 Hyperlipidemia, unspecified; J44.9 Chronic obstructive pulmonary disease, unspecified; K44.9 Diaphragmatic hernia without obstruction or gangrene; Z86.73 Personal history of transient ischemic attack (TIA), and cerebral infarction without residual deficits; M54.5 Low back pain; Z79.82 Long term (current) use of aspirin; Z79.899 Other long term (current) drug therapy; Z88.8 Allergy status to other drugs, medicaments and biological substances; K59.00 Constipation, unspecified

== ENCOUNTER 2017-07-12 07:54 | Emergency (ER) | payer MEDICARE, BC, OTHER ==
[2017-07-12] MEDS: diphenhydrAMINE INJ 50MG/ML VIAL (J1200) IV (09:51)
[2017-07-12] MEDS: FAMOTIDINE INJ 20MG/2ML VIAL (S0028) IVP (09:52)
[2017-07-12] MEDS: methylPREDNISolone INJ 125 MG/2 ML VIAL (J2930) IV (09:57)
== END 2017-07-12 10:58 | disposition home or self-care (01) ==
LOC: M ED 07:54
DX: T78.3XXA Angioneurotic edema, initial encounter (principal); X58.XXXA Exposure to other specified factors, initial encounter; Y92.89 Other specified places as the place of occurrence of the external cause; I11.0 Hypertensive heart disease with heart failure; I50.9 Heart failure, unspecified; I25.10 Atherosclerotic heart disease of native coronary artery without angina pectoris; Z79.899 Other long term (current) drug therapy; Z79.82 Long term (current) use of aspirin; Z88.8 Allergy status to other drugs, medicaments and biological substances; J30.89 Other allergic rhinitis
CPT/HCPCS: J1200

== ENCOUNTER → 2017-09-15 | Outpatient (CLI) | payer MEDICARE, BC, OTHER | LOC: M RAD 08:04 | DX: Z12.31 Encounter for screening mammogram for malignant neoplasm of breast (principal); N60.31 Fibrosclerosis of right breast; N60.32 Fibrosclerosis of left breast | CPT/HCPCS: 77067 ==

== ENCOUNTER → 2017-09-28 | Outpatient (REF) | payer MEDICARE, OTHER ==
[2017-09-28 12:13] LABS: HEMATOCRIT 34.6 % (36.0-47.0); HEMOGLOBIN 11.4 g/dl (12.0-15.5); MEAN CORPUSCULAR HEMOGLOBIN 30.9 pg (27.0-33.0); MEAN CORPUSCULAR HGB CONC 32.9 g/dl (32.0-36.5); MEAN CORPUSCULAR VOLUME 93.8 fl (80.0-96.0); PLATELET COUNT, AUTOMATED 253 10^3/uL (150-450); RED BLOOD COUNT 3.69 10^6/uL (4.00-5.40); RED CELL DISTRIBUTION WIDTH 13.1 % (11.5-14.5); WHITE BLOOD COUNT 4.8 10^3/uL (4.0-10.0)
[2017-09-28 12:22] LABS: ALBUMIN 3.4 GM/DL (3.2-5.2); ALBUMIN/GLOBULIN RATIO 1.13 (1.00-1.93); ALKALINE PHOSPHATASE 63 U/L (45-117); ALT/SGPT 12 U/L (12-78); ANION GAP 5 MEQ/L (8-16); AST/SGOT 13 U/L (7-37); BILIRUBIN,TOTAL 0.4 MG/DL (0.2-1.0); BLOOD UREA NITROGEN 9 MG/DL (7-18); CALCIUM LEVEL 9.2 MG/DL (8.8-10.2); CARBON DIOXIDE LEVEL 30 MEQ/L (21-32); CHLORIDE LEVEL 107 MEQ/L (98-107); CHOLESTEROL LEVEL 158 MG/DL (<200); CREATININE FOR GFR 0.84 MG/DL (0.55-1.30); GLOMERULAR FILTRATION RATE > 60.0 (>39); GLUCOSE, FASTING 81 MG/DL (70-100); HDL CHOLESTEROL 50 MG/DL (>40); MAGNESIUM LEVEL 1.9 MG/DL (1.8-2.4); NON-HDL-C 108 MG/DL; POTASSIUM SERUM 4.3 MEQ/L (3.5-5.1); SODIUM LEVEL 142 MEQ/L (136-145); TOTAL PROTEIN 6.4 GM/DL (6.4-8.2); TRIGLYCERIDES LEVEL 115 MG/DL (<150)
[2017-09-30 00:08] LABS: ANA (HEP2) Negative (.); ANTI DOUBLE STRAND-DNA AB 1 IU/mL (0-9)
== END ==
LOC: M SFHCPLAZ 09:01
DX: M15.0 Primary generalized (osteo)arthritis (principal); I51.81 Takotsubo syndrome; E78.00 Pure hypercholesterolemia, unspecified; I10 Essential (primary) hypertension
CPT/HCPCS: 83735

== ENCOUNTER → 2018-04-06 | Outpatient (REF) | payer MEDICARE, OTHER ==
[~2018-04-06] MED LIST changes: +ACET-683 PO; +ACET500T15 PO; -ACET50TAOT PO; -AMLO5TAB2 PO; +AMLO5TAB6 PO; +ASPI1TAB PO; +BENA25CA4 PO; +CLOP75TA2 PO; +DRAM50CH4 PO; +DULC5TAB PO; +DULE200A; +EZET10TA PO; +IMIP25TA3 PO; +ISOS20TAB PO; +LISI2.5T5 PO; +MECL-68 PO; +MELO15TA28; +METO10ELUD PO; +METO1TAB32 PO; +MILK120011 PO; -MILKSUS PO; +MIRA33504 PO; +OMEP40CA2; +OMEP40CA2 PO; +TIZA2TA; +[UNRECOGNIZED DRUG - CODE] PO
[2018-04-06 13:01] LABS: HEMOGLOBIN 12.5 g/dl (12.0-15.5); MEAN CORPUSCULAR HEMOGLOBIN 31.4 pg (27.0-33.0); MEAN CORPUSCULAR HGB CONC 32.9 g/dl (32.0-36.5); MEAN CORPUSCULAR VOLUME 95.5 fl (80.0-96.0); PLATELET COUNT, AUTOMATED 263 10^3/uL (150-450); RED BLOOD COUNT 3.98 10^6/uL (4.00-5.40); WHITE BLOOD COUNT 5.6 10^3/uL (4.0-10.0)
[2018-04-06 13:36] LABS: ALBUMIN 3.7 GM/DL (3.2-5.2); ALT/SGPT 12 U/L (12-78); BILIRUBIN,TOTAL 0.4 MG/DL (0.2-1.0); BLOOD UREA NITROGEN 11 MG/DL (7-18); CALCIUM LEVEL 9.3 MG/DL (8.8-10.2); CARBON DIOXIDE LEVEL 27 MEQ/L (21-32); CHLORIDE LEVEL 103 MEQ/L (98-107); CREATININE FOR GFR 0.95 MG/DL (0.55-1.30); GLOMERULAR FILTRATION RATE > 60.0 (>32); GLUCOSE, FASTING 98 MG/DL (70-100); POTASSIUM SERUM 4.7 MEQ/L (3.5-5.1); SODIUM LEVEL 137 MEQ/L (136-145); TOTAL PROTEIN 6.9 GM/DL (6.4-8.2)
== END ==
LOC: M SFHCPLAZ 09:39
PROVIDERS: ATTEND Internal Medicine
DX: R13.10 Dysphagia, unspecified (principal); I10 Essential (primary) hypertension

== ENCOUNTER → 2018-11-14 | Outpatient (REF) | payer MEDICARE, OTHER ==
[~2018-11-14] MED LIST changes: -ASPI1TAB PO; +ASPI81TA26 PO; -EZET10TA PO; +EZET10TA21 PO; +LISI-1046 PO; -LISI2.5T5 PO; +ZETI10TA16 PO; -ZETI10TA30 PO
[2018-11-14 12:22] LABS: ALBUMIN 3.6 GM/DL (3.2-5.2); ALT/SGPT 13 U/L (12-78); BILIRUBIN,TOTAL 0.7 MG/DL (0.2-1.0); BLOOD UREA NITROGEN 12 MG/DL (7-18); CALCIUM LEVEL 9.5 MG/DL (8.8-10.2); CARBON DIOXIDE LEVEL 29 MEQ/L (21-32); CHLORIDE LEVEL 105 MEQ/L (98-107); CHOLESTEROL LEVEL 163 MG/DL (<200); CHOLESTEROL RISK RATIO 3.018 (<5); CREATININE FOR GFR 0.87 MG/DL (0.55-1.30); GLOMERULAR FILTRATION RATE > 60.0 (>32); GLUCOSE, FASTING 91 MG/DL (70-100); HDL CHOLESTEROL 54 MG/DL (>40); LDL CHOLESTEROL 93 MG/DL (<100); MAGNESIUM LEVEL 1.8 MG/DL (1.8-2.4); NON-HDL-C 109 MG/DL; POTASSIUM SERUM 4.7 MEQ/L (3.5-5.1); SODIUM LEVEL 139 MEQ/L (136-145); TOTAL PROTEIN 6.7 GM/DL (6.4-8.2); TRIGLYCERIDES LEVEL 81 MG/DL (<150)
== END ==
LOC: M SFHCPLAZ 08:28
PROVIDERS: ATTEND Internal Medicine
DX: I10 Essential (primary) hypertension (principal); E78.00 Pure hypercholesterolemia, unspecified

== ENCOUNTER → 2018-11-28 | Outpatient (CLI) | payer MEDICARE, BC, OTHER ==
[~2018-11-28] MED LIST changes: -OMEP40CA2; -OMEP40CA2 PO; +OMEP40CA97; +OMEP40CA97 PO
--- NOTE | 2018-11-28 11:13 | REPMRS ---
Patient History The patient states she has not had a clinical breast exam in over a year. Family history of colorectal cancer at age 50 or over in mother, colorectal cancer at age 50 or over in maternal grandfather. Digital Mammo Screening Bilat: November 28, 2018 - Exam #: [id number] Bilateral CC and MLO view(s) were taken. Technologist: Chela Brumfield, Technologist Prior study comparison: September 15, 2017, bilateral digital mammo screening bilat performed at [facility]. June 15, 2016, bilateral digital mammo screening bilat performed at [facility]. June 12, 2015, bilateral digital mammo screening bilat performed at [facility]. FINDINGS: The breast tissue is heterogeneously dense. This may lower the sensitivity of mammography. There are stable post treatment changes in the left breast. There is a moderate amount of heterogeneously dense fibroglandular tissue which is fairly symmetric. There is no interval development of dominant mass, architectural distortion, or grouped microcalcification typical of malignancy. There has been no change in the appearance of the mammogram from the prior studies. 3-D tomosynthesis shows no additional findings. Assessment: BI-RADS/ACR category 2 mammogram. Benign Findings. Recommendation Routine screening mammogram of both breasts in 1 year (for women over age 40). This mammogram was interpreted with the aid of an FDA-approved computer-aided dectection system. Electronically Signed By: Don Guan MD 11/28/18 [id number]
== END ==
LOC: M RAD 10:13
PROVIDERS: ATTEND Internal Medicine
DX: Z12.31 Encounter for screening mammogram for malignant neoplasm of breast (principal); Z80.0 Family history of malignant neoplasm of digestive organs

== ENCOUNTER → 2019-08-22 | Outpatient (REF) | payer MEDICARE, OTHER ==
[~2019-08-22] MED LIST changes: -LISI-1046 PO; +LISI2.5T2 PO; -MECL-68 PO; +MECL1TAB31 PO
[2019-08-22 15:22] LABS: HEMATOCRIT 36.5 % (36.0-47.0); HEMOGLOBIN 11.9 g/dl (12.0-15.5); MEAN CORPUSCULAR HEMOGLOBIN 31.4 pg (27.0-33.0); MEAN CORPUSCULAR HGB CONC 32.6 g/dl (32.0-36.5); MEAN CORPUSCULAR VOLUME 96.3 fl (80.0-96.0); PLATELET COUNT, AUTOMATED 222 10^3/uL (150-450); RED BLOOD COUNT 3.79 10^6/uL (4.00-5.40); WHITE BLOOD COUNT 5.5 10^3/uL (4.0-10.0)
[2019-08-22 16:08] LABS: ALBUMIN 3.9 GM/DL (3.2-5.2); ALT/SGPT 20 U/L (12-78); BILIRUBIN,TOTAL 0.7 MG/DL (0.2-1.0); BLOOD UREA NITROGEN 10 MG/DL (7-18); CALCIUM LEVEL 9.8 MG/DL (8.8-10.2); CARBON DIOXIDE LEVEL 28 MEQ/L (21-32); CHLORIDE LEVEL 104 MEQ/L (98-107); CREATININE FOR GFR 0.86 MG/DL (0.55-1.30); GLOMERULAR FILTRATION RATE > 60.0 (>32); GLUCOSE, FASTING 87 MG/DL (70-100); MAGNESIUM LEVEL 2.2 MG/DL (1.8-2.4); POTASSIUM SERUM 4.2 MEQ/L (3.5-5.1); SODIUM LEVEL 136 MEQ/L (136-145); TOTAL PROTEIN 7.3 GM/DL (6.4-8.2)
== END ==
LOC: M PLALAB 13:10
PROVIDERS: ATTEND Internal Medicine
DX: I10 Essential (primary) hypertension (principal); Z85.3 Personal history of malignant neoplasm of breast

== ENCOUNTER 2019-10-10 15:36 | Inpatient (IN) | payer MEDICARE, BC, OTHER ==
[~2019-10-10] VITALS: Ht 167.6 cm; Wt 62.4 kg
[~2019-10-10 15:36] MED LIST changes: +AMLO1TAB24 PO; -AMLO5TAB6 PO
[2019-10-10] MEDS ORDERED: NS 500 ML IV ONE (17:00)
[2019-10-10] MEDS ORDERED: ACETAMINOPHEN 500 MG TAB PO ONE (17:00)
[2019-10-10 17:25] LABS: BASO # 0.1 10^3/uL (0.0-0.2); BASO % 1.3 % (0.0-1.0); EOS # 0.1 10^3/uL (0.0-0.5); EOS % 2.2 % (0.0-3.0); HEMATOCRIT 35.4 % (36.0-47.0); HEMOGLOBIN 12.4 g/dl (12.0-15.5); LYMPH # 1.1 10^3/uL (1.5-5.0); LYMPH % 24.6 % (24.0-44.0); MEAN CORPUSCULAR HEMOGLOBIN 32.8 pg (27.0-33.0); MEAN CORPUSCULAR VOLUME 93.7 fl (80.0-96.0); MONO # 0.4 10^3/uL (0.0-0.8); MONO % 7.8 % (0.0-5.0); NEUTROPHILS # 2.9 10^3/uL (1.5-8.5); NEUTROPHILS % 63.9 % (36.0-66.0); PLATELET COUNT, AUTOMATED 202 10^3/uL (150-450); RED BLOOD COUNT 3.78 10^6/uL (4.00-5.40); WHITE BLOOD COUNT 4.5 10^3/uL (4.0-10.0)
[2019-10-10 17:37] LABS: INR 0.92; PARTIAL THROMBOPLASTIN TIME 25.4 SECONDS (25.0-38.4); PROTHROMBIN TIME 12.6 SECONDS (11.8-14.0)
[2019-10-10 17:54] LABS: ALBUMIN 3.6 GM/DL (3.2-5.2); ALT/SGPT 25 U/L (12-78); BILIRUBIN,DIRECT 0.1 MG/DL (0.0-0.2); BILIRUBIN,TOTAL 0.3 MG/DL (0.2-1.0); CK-MB VALUE MASS 1.4 NG/ML (<3.6); CPK CREATINE PHOSPHOKINASE 72 U/L (26-192); LIPASE 280 U/L (73-393); MB/CK RELATIVE INDEX 1.94 (< OR =4); NT-PRO BNP 634 PG/ML (<450); TOTAL PROTEIN 6.6 GM/DL (6.4-8.2); TROPONIN I < 0.02 NG/ML (< 0.10)
[2019-10-10] MEDS ORDERED: ISOVUE-370 76% 100ML VIAL As Ordered ONE (17:55)
--- NOTE | 2019-10-10 18:24 | REPVR ---
PROCEDURE INFORMATION: Exam: CT Head Without Contrast Exam date and time: 10/10/2019 5:54 PM Age: 83 years old Clinical indication: Pain; Headache; Additional info: Chest pain, BP problems, ROSAS TECHNIQUE: Imaging protocol: Computed tomography of the head without contrast. Radiation optimization: All CT scans at this facility use at least one of these dose optimization techniques: automated exposure control; mA and/or kV adjustment per patient size (includes targeted exams where dose is matched to clinical indication); or iterative reconstruction. COMPARISON: CT Head without contrast 05/06/2017 11:05 AM FINDINGS: Brain: There is no acute intracranial hemorrhage, cerebral edema, or midline shift. Chronic microvascular ischemic changes are seen in the periventricular white matter. Age-related cerebral and cerebellar volume loss is present. Ventricles: No hydrocephalus. Bones/joints: No acute fracture. Sinuses: There is no acute sinusitis. Mastoid air cells: The mastoid air cells are clear. Orbits: The included orbital structures are unremarkable. Vasculature: Atherosclerotic calcifications are seen involving the cavernous carotid arteries. Soft tissues: Unremarkable. IMPRESSION: 1. No acute intracranial abnormality. 2. Atrophy and chronic deep white matter ischemic changes. Electronically signed by: Pierce Corrales On 10/10/2019 18:24:48 PM
--- NOTE | 2019-10-10 18:42 | REPVR ---
PROCEDURE INFORMATION: Exam: CT Angiography Chest With Contrast Exam date and time: 10/10/2019 6:17 PM Age: 83 years old Clinical indication: Chest pain; Additional info: Chest pain, BP problems, ROSAS TECHNIQUE: Imaging protocol: Computed tomographic angiography of the chest with intravenous contrast. 3D rendering (Not supervised by radiologist): MIP and/or 3D reconstructed images were created by the technologist. Radiation optimization: All CT scans at this facility use at least one of these dose optimization techniques: automated exposure control; mA and/or kV adjustment per patient size (includes targeted exams where dose is matched to clinical indication); or iterative reconstruction. Contrast material: ISOVUE 370; Contrast volume: 75 ml; Contrast route: INTRAVENOUS (IV); COMPARISON: CT ANGIO CHEST 06/29/2017 2:14 PM FINDINGS: Pulmonary arteries: Normal. No pulmonary emboli. Aorta: Unremarkable. No aortic aneurysm. No aortic dissection. Lungs: 4 mm nodule at the right lung base unchanged from prior study. Pleural space: Unremarkable. No pneumothorax. No pleural effusion. Heart: Unremarkable. No cardiomegaly. No pericardial effusion. Lymph nodes: Unremarkable. No enlarged lymph nodes. Bones/joints: Diffuse demineralization of the bones. Soft tissues: Unremarkable. IMPRESSION: No pulmonary embolism. Nodule at the right lung base measuring 4 mm which is stable since 06/29/2017. Electronically signed by: Anthony Guan On 10/10/2019 18:42:08 PM
[2019-10-10] MEDS ORDERED: LOSARTAN 25 MG TAB PO ONE (20:00)
[2019-10-10] MEDS ORDERED: ONDANSETRON 4MG/2ML VIAL IV ONE (20:30)
[2019-10-10] MEDS ORDERED: KETOROLAC 30 MG/ML 1ML VIAL IV ONE (20:45)
--- NOTE | 2019-10-10 22:31 | HPEPDOC ---
[facility] Medical History & Physical Date of Admission Oct 10, 2019 Date of Service: Oct 10, 2019 Primary Care Physician: Olegario Kenney Attending Physician: BERT CARRASCO MD History and Physical TIME OF SERVICE: 1150PM CHIEF COMPLAINT: I dont feel good HISTORY OF PRESENT ILLNESS: This 83 yr old F came to the hospital with c/o of not feeling well and having high blood pressure at home for a few weeks. Today she noticed that her blood pressure wouldnt go down. The patient told Mary Chester (ER provider) that she was no longer taking blood pressure medications because she feels like she is having side effects from taking them and sometimes her BP is low. Per last note in August the patient was was started on amlodipine in November 2016. In the spring she was switched to lisinopril, isosorbide, nitrates and metoprolol while the amlodipine was discontinued. In the summer she stopped taking lisinopril bc of tongue swelling. The amlodipine was r esumed in November of 2018; in summary she was supposed to be taking isosorbide metoprolol & amlodipine. Today she also c/o of feeling dizzy, congested cold and having 3 episodes of loose stools. She denied having fever, chills, chest pain, a change in her chronic back pain, and a change in her chronic cough. Jennifer discussed the case with who recommended starting Losartan. REVIEW OF SYSTEMS: 12 point review of systems negative except as listed in HPI PAST MEDICAL/ SURGICAL HISTORY: Chronic HTN hx of TIA Chronic CAD w mid LAD, L Cx and proximal RCA lesions Dyslipidemia COPD Osteopenia Hx of Takatsubo confirmed w angiogram in 2018 (repeat Echo showed EF recovered from 35% to 65% in 2018) Chronic back pain s/p laminectomy GERD w hiatal hernia Hx of Breast cancer tx w lumpectomy and radiation in 2009, declined adjuvant aromatase inhibitor Cholecystectomy Bilateral Knee arthroplasty Repair of deviated septum SOCIAL HISTORY: Former smoker (> 60 pack yr habit) / doesnt drink FAMILY HISTORY: Cancer / Alcoholism ALLERGIES: Please see below. HOME MEDICATIONS: Please see below. PHYSICAL EXAMINATION: Vital Signs Date Time Temp Pulse Resp B/P (MAP) Pulse Ox O2 Delivery O2 Flow Rate FiO2 10/10/19 16:19 98.5 62 17 166/77 (106) 95 Room Air 176/81 (112) GENERAL APPEARANCE: well-nourished / well developed HEENT: EOMI CARDIOVASCULAR: RRR/NMRG LUNGS: occasional cough / normal air entry bilaterally / expiratory wheezing ABDOMEN: flat MUSCULOSKELETAL: IRAM x 4 extremities INTEGUMENT: no palor / not flushed NEUROLOGICAL: CN 2-12 intact / speech not dysarthric PSYCHIATRIC: A&Ox 3 able to understand and follow all commands LABORATORY DATA: 10/10/19 17:09 10/10/19 17:09: Immature Granulocyte % (Auto) 0.2, Neutrophils (%) (Auto) 63.9, Lymphocytes (%) (Auto) 24.6, Monocytes (%) (Auto) 7.8H, Eosinophils (%) (Auto) 2.2, Basophils (%) (Auto) 1.3H, Neutrophils # (Auto) 2.9, Lymphocytes # (Auto) 1.1L, Monocytes # (Auto) 0.4, Eosinophils # (Auto) 0.1, Basophils # (Auto) 0.1, Nucleated Red Blood Cells % (auto) 0.0, Prothrombin Time 12.6, Prothromb Time International Ratio 0.92, Activated Partial Thromboplast Time 25.4, Total Bilirubin 0.3, Direct Bilirubin 0.1, Aspartate Amino Transf (AST/SGOT) 22, Alanine Aminotransferase (ALT/SGPT) 25, Alkaline Phosphatase 53, Total Creatine Kinase 72, Creatine Kinase MB 1.4, Creatine Kinase MB Relative Index 1.94, Troponin I < 0.02, CV-Owh-H-Type Natriuretic Peptide 634H, Total Protein 6.6, Albumin 3.6, Albumin/Globulin Ratio 1.2, Lipase 280 10/10/19 19:07: Urine Color STRAW, Urine Appearance CLEAR, Urine pH 5.0, Urine Specific [place] 1.021, Urine Protein NEGATIVE, Urine Glucose (UA) NEGATIVE, Urine Ketones NEGATIVE, Urine Blood 1+H, Urine Nitrite NEGATIVE, Urine Bilirubin NEGATIVE, Urine Urobilinogen 0.2, Urine Leukocyte Esterase 2+H, Urine WBC (Auto) 12H, Urine RBC (Auto) 2, Urine Hyaline Casts (Auto) 0, Urine Bacteria (Auto) NEGATIVE, Urine Squamous Epithelial Cells 1, Urine Mucus (Auto) SMALL, Urine Sperm (Auto) IMAGING: CT head IMPRESSION: 1. No acute intracranial abnormality. 2. Atrophy and chronic deep white matter ischemic changes. CT chest IMPRESSION: No pulmonary embolism. Nodule at the right lung base measuring 4 mm which is stable since 06/29/2017." MICROBIOLOGY: 10/10/19 Urine Culture, Received Pending ASSESSMENT: is an 83 yr old w a hx of HTN, TIA, Chronic CAD and Dyslipidemia who will be admitted for evaluation of dizziness and management of uncontrolled blood pressure. PLAN: 1 Dizziness Possibly 2/2 uncontrolled BP or orthostats or CVA Plan: admit to medical floor / orthostats / fall precautions / PT eval / MRI brain and MRA brain and neck to r/o vertebrobasilar insufficiency / PT eval 2 Uncontrolled HTN Its not clear if the patient's regimen was changed again after her visit with or she is not compliant with meds due to side effects Plan: c/w Losartan / the day time team can call to discuss which meds the patient should be discharged with / check Troponin 3 Mild COPD exacerbation + wheezing Plan: duonebs w albuterol 4 hx of TIA Plan: ASA, ezetimibe 5. Chronic CAD w mid LAD, L Cx and proximal RCA lesions / Dyslipidemia Plan: ASA and ezetmibe 6. Chronic back pain s/p laminectomy Plan: Gabapentin DVT px w Lovenox DISPO: likely home after more than 2 midnight's stay Home Medications Scheduled Diphenhydramine HCl (Benadryl) 25 Mg Capsule, 50 MG PO QHS Ezetimibe (Ezetimibe) 10 Mg Tab, 10 MG PO QHS Gabapentin (Gabapentin) 300 Mg Capsule, 300 MG PO TID Scheduled PRN Acetaminophen (Acetaminophen) 500 Mg Tab, 1,000 MG PO Q6H PRN for PAIN Albuterol Sulfate (Ventolin Hfa) 108 Mcg/Act Aer, 2 PUFFS INH QID PRN for SHORTNESS OF BREATH Bisacodyl (Dulcolax) 5 Mg Tab, 10 MG PO DAILY PRN for CONSTIPATION Carboxymethylcellulose Sodium (Refresh Tears) 0.5 % Julio, 1 DROP OU QID PRN for DRY EYES Fluticasone Propionate (Flonase Allergy Relief) 50 Mcg/Act Spr, 1 SPRAY NA BID PRN for NASAL CONGESTION Mometasone/Formoterol (Dulera 200 Mcg/5 Mcg Inhaler) 1 Aer Aer, 2 PUFFS INH BID PRN for SHORTNESS OF BREATH Polyethylene Glycol 3350 (Miralax) 17 Gm Powd.pack, 17 GM PO DAILY PRN for CONSTIPATION Allergies Coded Allergies: ENVIROMENTAL (Verified Allergy, Unknown, 07/06/07) letrozole (Unverified Adverse Reaction, Unknown, 10/10/19) A-FIB/CHADSVASC A-FIB History Current/History of A-Fib/PAF?: No Current PO Anticoag Therapy: No BERT CARRASCO MD Oct 10, 2019 22:31
[2019-10-10] MEDS ORDERED: MIRA1POW3 PO (22:58)
[2019-10-10] MEDS ORDERED: BENA25CA4 PO (22:58)
[2019-10-10] MEDS ORDERED: GABA-843 PO (22:58)
[2019-10-11] MEDS ORDERED: ALBUTEROL SULFATE 2.5 MG/0.5 ML INH NEB SOLN NEB PRN (00:45)
[2019-10-11] MEDS ORDERED: FLUTICASONE PROP 0.05% NASAL SPRAY 16 GM (FLONASE) PRN (00:45)
[2019-10-11] MEDS ORDERED: MIRALAX *UNIT DOSE* 17GM PACKET PO PRN (00:45)
[2019-10-11] MEDS: ACETAMINOPHEN TAB 650MG DOSE (2X325MG) PO PRN (02:40)
[2019-10-11] MEDS ORDERED: GABAPENTIN 100 MG CAP PO ONE (03:15)
[2019-10-11] MEDS ORDERED: ONDANSETRON 4 MG ORAL DISINTEGRATING TAB PO PRN (03:15)
[2019-10-11] MEDS: predniSONE 20 MG TAB PO SCH ×2 (06:01→09:29)
[2019-10-11] MEDS: PANTOPRAZOLE 40MG TAB (PROTONIX) PO SCH ×2 (06:02→09:28)
[2019-10-11] MEDS: IPRATROPIUM 0.5MG/ALBUTEROL 2.5MG INH SOL UD 3ML (DUONEB) NEB SCH ×4 (07:41→20:30)
[2019-10-11 08:26] LABS: HEMATOCRIT 34.7 % (36.0-47.0); HEMOGLOBIN 11.9 g/dl (12.0-15.5); MEAN CORPUSCULAR HEMOGLOBIN 31.9 pg (27.0-33.0); MEAN CORPUSCULAR HGB CONC 34.3 g/dl (32.0-36.5); PLATELET COUNT, AUTOMATED 200 10^3/uL (150-450); RED BLOOD COUNT 3.73 10^6/uL (4.00-5.40); WHITE BLOOD COUNT 5.4 10^3/uL (4.0-10.0)
[2019-10-11 08:42] LABS: BLOOD UREA NITROGEN 9 MG/DL (7-18); CALCIUM LEVEL 8.8 MG/DL (8.8-10.2); CARBON DIOXIDE LEVEL 24 MEQ/L (21-32); CHLORIDE LEVEL 107 MEQ/L (98-107); CREATININE FOR GFR 0.76 MG/DL (0.55-1.30); GLOMERULAR FILTRATION RATE > 60.0 (>32); GLUCOSE, FASTING 102 MG/DL (70-100); POTASSIUM SERUM 3.9 MEQ/L (3.5-5.1); SODIUM LEVEL 136 MEQ/L (136-145); TROPONIN I < 0.02 NG/ML (< 0.10)
[2019-10-11] MEDS ORDERED: cefTRIAXone SOD 1 GM in D5W MINI-BAG PLUS 50 ML IV SCH (09:00)
[2019-10-11] MEDS: GABAPENTIN 300 MG CAP PO SCH ×3 (09:29→20:24)
[2019-10-11] MEDS: LOSARTAN 25 MG TAB PO SCH (09:29)
[2019-10-11] MEDS: ENOXAPARIN 40MG/0.4ML SYRINGE (J1650 PER 10MG) SC SCH (09:30)
[2019-10-11 15:09] VITALS: BP 122/60
[2019-10-11 18:00] VITALS: BP_SYST 109; BP_SYST 116; BP_SYST 117; BP_DIAS 56; BP_DIAS 57; BP_DIAS 58
--- NOTE | 2019-10-11 18:14 | IPNPDOC ---
Date Seen The patient was seen on 10/11/19. Progress Note SUBJECTIVE: Orthostatics neg throughout the day today, MRI, MRA pending to be done as patient was being held in ER. F/u PT/OT evaluations and imaging results. Denies chest pain, shortness of breath, fever, chills. Dizziness slightly improved. OBJECTIVE: PHYSICAL EXAMINATION: VITAL SIGNS: Please see below. GENERAL APPEARANCE: well-nourished / well developed HEENT: EOMI CARDIOVASCULAR: RRR/NMRG LUNGS: occasional cough / normal air entry bilaterally / mild expiratory wheezing ABDOMEN: flat, soft, nontender, nondistended MUSCULOSKELETAL: IRAM x 4 extremities INTEGUMENT: no palor / not flushed NEUROLOGICAL: CN 2-12 intact / speech not dysarthric PSYCHIATRIC: A&Ox 3 able to understand and follow all commands LABORATORY DATA, IMAGING STUDIES, MICROBIOLOGY: Please see below. CT head IMPRESSION: 1. No acute intracranial abnormality. 2. Atrophy and chronic deep white matter ischemic changes. CT chest IMPRESSION: No pulmonary embolism. Nodule at the right lung base measuring 4 mm which is stable since 06/29/2017." MRI/MRA brain pending ASSESSMENT: is an 83 yr old w a hx of HTN, TIA, Chronic CAD and Dyslipidemia who will be admitted for evaluation of dizziness and management of uncontrolled blood pressure, mild COPD exacerbation, UTI. PLAN: 1. Dizziness possibly 2/2 uncontrolled BP vs. orthostatics or CVA/TIA? vs. UTI. Thus far orthostatics neg. F/u PT eval / MRI brain and MRA brain and neck to r/o vertebrobasilar insufficiency. Ceftriaxone for UTI. Monitor on telemetry, daily labs, neuro checks. 2. Uncontrolled HTN. BP better controlled since admission. C/w Losartan. 3. Mild COPD exacerbation. On RA, saturating well, mild wheezing. C/w duonebs, albuterol, prednisone. 4. UTI. UCx pending. C/w Ceftriaxone (Day 1) 5. Hx of TIA. C/w ASA, ezetimibe 6. Chronic CAD w mid LAD, L Cx and proximal RCA lesions / Dyslipidemia. C/w ASA and ezetmibe 7. Chronic back pain s/p laminectomy. Stable. C/w gabapentin 8. DVT px: Lovenox DISPOSITION: F/u all imaging and orthostatics, rest of workup. Plan is likely home at discharge. VS, I&O, 24H, Fishbone Vital Signs/I&O Vital Signs Date Time Temp Pulse Resp B/P (MAP) Pulse Ox O2 Delivery O2 Flow Rate FiO2 10/11/19 15:09 98.4 18 93 122/60 (80) 97 10/11/19 15:00 Room Air I&O- Last 24 Hours up to 6 AM 10/11/19 06:00 Intake Total 500 ml Balance 500 ml Laboratory Data 24H LABS Laboratory Tests 2 10/10/19 19:07: Urine Color STRAW, Urine Appearance CLEAR, Urine pH 5.0, Urine Specific [place] 1.021, Urine Protein NEGATIVE, Urine Glucose (UA) NEGATIVE, Urine Ketones NEGATIVE, Urine Blood 1+H, Urine Nitrite NEGATIVE, Urine Bilirubin NEGATIVE, Urine Urobilinogen 0.2, Urine Leukocyte Esterase 2+H, Urine WBC (Auto) 12H, Urine RBC (Auto) 2, Urine Hyaline Casts (Auto) 0, Urine Bacteria (Auto) NEGATIVE, Urine Squamous Epithelial Cells 1, Urine Mucus (Auto) SMALL, Urine Sperm (Auto) 10/11/19 07:43: Nucleated Red Blood Cells % (auto) 0.0, Anion Gap 5L, Glomerular Filtration Rate > 60.0, Calcium Level 8.8, Troponin I < 0.02 10/11/19 11:40: Troponin I < 0.02 CBC/BMP Laboratory Tests 10/11/19 07:43 Microbiology Microbiology 10/10/19 Urine Culture, Received Pending Current Medications Current Medications Medications (Trade) Dose Ordered Sig/Kris Route PRN Reason Start Time Stop Time Status Last Admin Dose Admin Acetaminophen (Tylenol Tab) 650 mg Q4H PRN PO PAIN OR FEVER 10/10/19 22:30 10/11/19 02:40 Albuterol Sulfate (Proventil Neb) 2.5 mg Q1HP PRN NEB SHORTNESS OF BREATH 10/11/19 00:45 Albuterol/ Ipratropium (Duoneb (Ipr 0.5mg/Alb 2.5mg)) 3 ml RQ6H NEB 10/11/19 02:00 10/11/19 14:19 Bisacodyl (Dulcolax Tab) 10 mg DAILY PRN PO CONSTIPATION 10/11/19 00:45 Ceftriaxone Sodium 1 gm/ Dextrose 50 ml @ 100 mls/hr Q24H IV 8/26/20 09:00 10/11/19 09:30 Enoxaparin Sodium (Lovenox) 40 mg DAILY SC 10/11/19 09:00 10/11/19 09:30 EZETIMIBE (Zetia) 10 mg QHS PO 10/11/19 21:00 Fluticasone Propionate (Flonase 0.05% Nasal [place]) 1 spray BID PRN NA NASAL CONGESTION 10/11/19 00:45 Gabapentin (Neurontin) 300 mg TID PO 10/11/19 09:00 10/11/19 15:27 Home Med (Med Rec Complete!) ASDIRECTED XX 10/10/19 23:00 10/10/19 23:00 DC Losartan Potassium (Cozaar) 25 mg DAILY PO 10/11/19 09:00 10/11/19 09:29 Magnesium Hydroxide (Milk Of Magnesia) 30 ml DAILY PRN PO CONSTIPATION 10/10/19 22:30 Ondansetron HCl (Zofran Odt) 2 mg Q6HP PRN PO NAUSEA 10/11/19 03:15 10/11/19 03:16 Pantoprazole Sodium (Protonix) 40 mg DAILY PO 10/11/19 06:00 10/11/19 09:28 Polyethylene Glycol (Miralax) 1 pkt DAILY PRN PO CONSTIPATION 10/11/19 00:45 Prednisone (Deltasone) 40 mg DAILY PO 10/11/19 06:00 10/11/19 09:29 Allergies Coded Allergies: ENVIROMENTAL (Verified Allergy, Unknown, 07/06/07) letrozole (Unverified Adverse Reaction, Unknown, 10/10/19) Jessy Johnson MD Oct 11, 2019 18:14
[2019-10-11 20:00] VITALS: BP 135/62
--- NOTE | 2019-10-11 20:00 | REPVR ---
PROCEDURE INFORMATION: Exam: MR Head Without Contrast Exam date and time: 10/11/2019 5:04 PM Age: 83 years old Clinical indication: Dizziness; Additional info: Dizziness R/O posterior CVA TECHNIQUE: Imaging protocol: MR of the head without contrast. COMPARISON: MRI-Brain without Contrast 12/06/2016 6:04 PM FINDINGS: Brain: No restricted diffusion within the brain to suggest an acute infarct. There are scattered foci of FLAIR hyperintensity within the cerebral white matter. There is no mass effect or restricted diffusion associated with these foci. In a patient this age, this likely represents chronic small vessel ischemic disease. No cerebral edema. No intracranial mass effect. Magnetic susceptibility again visualized within the bilateral basal ganglia. Ventricles: There is moderate prominence of the ventricles and sulci, compatible with atrophy. Sella: There is an empty sella. This is stable. Bones/joints: Unremarkable, as visualized. Sinuses: Minimal mucosal thickening of scattered ethmoid air cells. Mastoid air cells: Minimal effusions within the right mastoid air cells. Minimal mucosal thickening/effusions within left mastoid air cells. Orbits: Bilateral orbital lens implants. Soft tissues: Unremarkable, as visualized. IMPRESSION: 1. No restricted diffusion within the brain to suggest an acute infarct. 2. There are scattered foci of FLAIR hyperintensity within the cerebral white matter. In a patient this age, this likely represents chronic small vessel ischemic disease. 3. Moderate atrophy. 4. There is an empty sella. 5. Additional findings described above. Electronically signed by: Tim Thurston On 10/11/2019 20:00:31 PM
--- NOTE | 2019-10-11 20:18 | REPVR ---
PROCEDURE INFORMATION: Exam: MR Angiogram Head Without Contrast, Arteries Exam date and time: 10/11/2019 5:33 PM Age: 83 years old Clinical indication: Dizziness and giddiness; Additional info: Dizziness R/O posterior CVA TECHNIQUE: Imaging protocol: MR angiogram head without contrast. Exam focused on the arteries. 3D rendering (Not supervised by radiologist): MIP and/or 3D reconstructed images were created by the technologist. COMPARISON: MRA BRAIN W/O CONTRAST 12/06/2016 5:10 PM FINDINGS: ANTERIOR CIRCULATION: Right internal carotid artery: Intracranial segment is patent with no significant stenosis. No aneurysm. Right middle cerebral artery: No occlusion or significant stenosis. No aneurysm. Right anterior cerebral artery: No occlusion or significant stenosis. Left internal carotid artery: Mild stenosis of the cavernous left internal carotid artery. No occlusion. No aneurysm. Left middle cerebral artery: No occlusion or significant stenosis. No aneurysm. 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 POSTERIOR CIRCULATION: Right vertebral artery: No occlusion or significant stenosis. No aneurysm. Left vertebral artery: There is severely decreased flow and possible occlusion of the V4 segment of the left vertebral artery. This is new compared to the prior study. Normal flow is identified distal to the origin of the PICA. Basilar artery: No occlusion or significant stenosis. No aneurysm. Right posterior cerebral artery: No occlusion or significant stenosis. No aneurysm. Left posterior cerebral artery: Persistence of the origin of the left posterior cerebral artery, without significant stenosis or occlusion. No aneurysm. Other vasculature: A vascular bulge is identified of the anterior communicating artery measuring 3 mm in diameter, consistent with aneurysm. There is no progression compared to the prior study. IMPRESSION: 1. There is severely decreased flow and possible occlusion of the V4 segment of the left vertebral artery. This is new compared to the prior study. 2. Mild stenosis of the cavernous left internal carotid artery. 3. 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 There is no progression compared to the prior study. 4. Additional findings described above. Electronically signed by: Tim Thurston On 10/11/2019 20:18:19 PM
[2019-10-11] MEDS: EZETIMIBE 10 MG TAB (ZETIA) PO SCH (20:24)
--- NOTE | 2019-10-11 20:31 | REPVR ---
PROCEDURE INFORMATION: Exam: MR Angiography Neck Without Contrast Exam date and time: 10/11/2019 5:33 PM Age: 83 years old Clinical indication: Dizziness and giddiness; Additional info: Dizziness R/O posterior CVA TECHNIQUE: Imaging protocol: Magnetic resonance angiography of the neck without contrast. 3D rendering (Not supervised by radiologist): MIP and/or 3D reconstructed images were created by the technologist. COMPARISON: CT ANGIO CHEST 10/10/2019 5:57:32 PM FINDINGS: Right common carotid artery: No significant stenosis or occlusion. Limited by artifact Right internal carotid artery: There is approximately 50% stenosis of the proximal right internal carotid artery. Right external carotid artery: Moderate stenosis of the proximal right external carotid artery. Right vertebral artery: See below. Left common carotid artery: No significant stenosis or occlusion of the mid to distal common carotid artery. Artifact limits evaluation of this vessel proximally. Left internal carotid artery: There is approximately 65% stenosis of the proximal left internal carotid artery. Left external carotid artery: Flow is poorly visualized in the region of the proximal left external carotid artery, consistent with severe stenosis or occlusion. Flow is identified more distally within this vessel. Left vertebral artery: Mild stenosis of the V1 segment of the left vertebral artery. Artifact limits evaluation of this segment. Flow voids are identified involving left V3 and proximal V4 segments of the left vertebral artery. This is likely artifactual. Artifact also limits evaluation of right V3 and proximal V4 segments. Flow-limiting pathology cannot be excluded. Subclavian arteries: Artifact limits evaluation of the bilateral subclavian arteries. There is moderate to severe stenosis of the proximal left subclavian artery. IMPRESSION: 1. Flow is poorly visualized in the region of the proximal left external carotid artery, consistent with severe stenosis or occlusion. 2. There is moderate to severe stenosis of the proximal left subclavian artery. 3. 50% stenosis of the proximal right internal carotid artery. 4. Approximately 65% stenosis of the proximal left internal carotid artery. 5. Moderate stenosis of the proximal right external carotid artery. 6. Mild stenosis of the V1 segment of the left vertebral artery. Artifact limits evaluation of this segment. 7. Flow voids are identified involving left V3 and proximal V4 segments of the left vertebral artery. This is likely artifactual. Artifact also limits evaluation of right V3 and proximal V4 segments. Flow-limiting pathology cannot be excluded. 8. Additional findings described above. REFERENCES: NASCET CRITERIA. The degree of internal carotid artery stenosis is based on NASCET criteria. Normal is no stenosis. Mild is less than 50% stenosis. Moderate is 50-69% stenosis. Severe is 70% to 99% stenosis. Total occlusion is no detectable patent lumen. Electronically signed by: Tim Thurston On 10/11/2019 20:31:58 PM
--- NOTE | 2019-10-11 20:52 | IPNPDOC ---
Text Note Date of Service The patient was seen on 10/11/19. NOTE I was called by Dr. Thurston to discuss the MRA findings specifically the "area of severely decreased flow and possible occlusion of the V4 segment of the left vertebral artery." I reviewed the findings with who recommended ordering CTA of the head with contrast. He added that if the stenosis is not visualized on CTA it is ok to c/w current dose of ASA. If there is stenosis on CTA then she will need dual anti-platelet therapy. Based on 's notes the patient was on ASA and Plavix in the past but the Plavix was stopped because she developed bruising. LATE ENTRY On the CTA of the head it was not possible to visualize the proximal V4 segment of the left vertebral artery therefore I will resume Plavix and ask to follow up with Neurology if indicated in the morning. VS,Fishbone, I+O VS, Fishbone, I+O Laboratory Tests 10/11/19 07:43 Vital Signs Date Time Temp Pulse Resp B/P (MAP) Pulse Ox O2 Delivery O2 Flow Rate FiO2 10/11/19 18:00 69 116/57 (76) 77 109/58 (75) 88 117/56 (76) 10/11/19 15:09 98.4 93 97 10/11/19 15:00 Room Air I&O- Last 24 Hours up to 6 AM 10/11/19 06:00 Intake Total 500 ml Balance 500 ml BERT CARRASCO MD Oct 11, 2019 20:52
[2019-10-11] MEDS ORDERED: ISOVUE-370 76% 100ML VIAL As Ordered ONE (21:30)
--- NOTE | 2019-10-11 22:31 | REPVR ---
PROCEDURE INFORMATION: Exam: CT Head Without Contrast Exam date and time: 10/11/2019 10:08 PM Age: 83 years old Clinical indication: Weakness, extremity; Additional info: CT head w/o prior to CT angio TECHNIQUE: Imaging protocol: Computed tomography of the head without contrast. Radiation optimization: All CT scans at this facility use at least one of these dose optimization techniques: automated exposure control; mA and/or kV adjustment per patient size (includes targeted exams where dose is matched to clinical indication); or iterative reconstruction. COMPARISON: CT Head without contrast 10/10/2019 5:54 PM MRI-Brain without Contrast 10/11/2019 4:52:30 PM FINDINGS: Brain: No acute intracranial hemorrhage is visualized. The white-bryant differentiation is preserved demonstrating no acute territorial type infarct. There are periventricular foci of white matter hypodensity, likely representing small vessel ischemic disease in a patient this age. The acuity of the white matter disease is indeterminate. There is no midline shift. Artifact limits evaluation of the arlene. Ventricles: There is stable prominence of the ventricles and sulci, compatible with atrophy. Bones/joints: The calvarium demonstrates no evidence for a depressed fracture. Sinuses: Visualized sinuses are unremarkable. No fluid levels. Mastoid air cells: Minimal mucosal thickening of left mastoid air cells. Minimal effusions within right mastoid air cells are better visualized on MRI imaging from the same day. Vasculature: Intracranial atherosclerosis visualized. Soft tissues: Unremarkable. Other findings: There is an empty sella. IMPRESSION: 1. No acute intracranial hemorrhage or acute territorial type infarct. 2. There are periventricular foci of white matter hypodensity, likely representing small vessel ischemic disease in a patient this age. 3. Stable moderate atrophy. 4. There is an empty sella. Electronically signed by: Tim Thurston On 10/11/2019 22:31:35 PM
--- NOTE | 2019-10-11 22:45 | REPVR ---
PROCEDURE INFORMATION: Exam: CT Angiography Head With Contrast Exam date and time: 10/11/2019 10:08 PM Age: 83 years old Clinical indication: Weakness; Additional info: Dizziness / stenosis visualized on mra head TECHNIQUE: Imaging protocol: Computed tomography angiography of the head with intravenous contrast. 3D rendering (Not supervised by radiologist): MIP and/or 3D reconstructed images were created by the technologist. Radiation optimization: All CT scans at this facility use at least one of these dose optimization techniques: automated exposure control; mA and/or kV adjustment per patient size (includes targeted exams where dose is matched to clinical indication); or iterative reconstruction. Contrast material: ISOVUE 370; Contrast volume: 75 ml; Contrast route: INTRAVENOUS (IV); COMPARISON: MRA BRAIN W/O CONTRAST 10/11/2019 4:52 PM FINDINGS: ANTERIOR CIRCULATION: Right internal carotid artery: Less than 50% stenosis of the right internal carotid artery, with atherosclerosis. No aneurysm. Right middle cerebral artery: No occlusion or significant stenosis. No aneurysm. Right anterior cerebral artery: No occlusion or significant stenosis. See below. Left internal carotid artery: Atherosclerosis and mild stenosis of the cavernous left internal carotid artery. No aneurysm. Left middle cerebral artery: No occlusion or significant stenosis. No aneurysm. 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 A vascular bulge is identified of the anterior communicating artery measuring 3 mm in diameter, consistent with aneurysm. POSTERIOR CIRCULATION: Right vertebral artery: No occlusion or significant stenosis, as visualized. No aneurysm. Left vertebral artery: There is asymmetric mild decreased enhancement of the left vertebral artery, consistent with decreased flow. No occlusion of the visualized distal left vertebral artery. The proximal V4 segment of the left vertebral artery is out of the field of view of this study. Basilar artery: No occlusion or significant stenosis. No aneurysm. Right posterior cerebral artery: No occlusion or significant stenosis. No aneurysm. Left posterior cerebral artery: Persistence of the origin of the left posterior cerebral artery, without significant stenosis or occlusion. No aneurysm. Veins: Evaluation of the dural venous sinuses is limited by suboptimal venous enhancement. IMPRESSION: 1. There is asymmetric mild decreased enhancement of the left vertebral artery, consistent with decreased flow. The proximal V4 segment of the left vertebral artery is out of the field of view of this study. 2. 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 3. Atherosclerosis and mild stenosis of the cavernous left internal carotid artery. 4. Less than 50% stenosis of the right internal carotid artery. 5. Additional findings described above. Electronically signed by: Tim Thurston On 10/11/2019 22:45:52 PM
[2019-10-12] VITALS (8 sets, daily range): BP systolic 127–174; BP diastolic 60–75
[2019-10-12] MEDS: IPRATROPIUM 0.5MG/ALBUTEROL 2.5MG INH SOL UD 3ML (DUONEB) NEB SCH ×4 (02:00→20:39)
[2019-10-12] MEDS: CLOPIDOGREL 75 MG TAB PO SCH (04:15)
[2019-10-12] MEDS: predniSONE 20 MG TAB PO SCH (09:00)
[2019-10-12] MEDS: ENOXAPARIN 40MG/0.4ML SYRINGE (J1650 PER 10MG) SC SCH (09:01)
[2019-10-12] MEDS: GABAPENTIN 300 MG CAP PO SCH ×3 (09:01→20:46)
[2019-10-12] MEDS: PANTOPRAZOLE 40MG TAB (PROTONIX) PO SCH (09:01)
[2019-10-12] MEDS: LOSARTAN 25 MG TAB PO SCH (09:01)
--- NOTE | 2019-10-12 13:22 | IPNPDOC ---
Date Seen The patient was seen on 10/12/19. Progress Note SUBJECTIVE: Orthostatics neg throughout the day today but she got dizzy with increased acitivty at times. MRA findings specifically the "area of severely decreased flow and possible occlusion of the V4 segment of the left vertebral artery." was of concern. Neurology was called overnight by covering night provider who recommended ordering CTA of the head with contrast. CTA of the head says it was not possible to visualize the proximal V4 segment of the left vertebral artery. Ideally patient would need to be on dual anti-platelet therapy. Based on (PCP) the patient was on ASA and Plavix in the past but the Plavix was stopped because she developed bruising and some bleeding. Today when asked about the bleeding, patient states it was significant but she had been on it for a l mike time prior to it being stopped. After discussing risks of not being on dual therapy, patient opted to try it again while we keep a close eye on CBC daily. BP better controlled this AM. Discussed imaging with radiology (Dr. Guan) who reviewed the MRI/MRA and CT scans again today. There is great visual of the area of concern so no new imaging was performed. Patient currently denies chest pain, shortness of breath, fever, chills. OBJECTIVE: PHYSICAL EXAMINATION: VITAL SIGNS: Please see below. GENERAL APPEARANCE: well-nourished / well developed HEENT: EOMI CARDIOVASCULAR: RRR/NMRG LUNGS: occasional cough / normal air entry bilaterally / mild expiratory wheezing ABDOMEN: flat, soft, nontender, nondistended MUSCULOSKELETAL: IRAM x 4 extremities INTEGUMENT: no palor / not flushed NEUROLOGICAL: CN 2-12 intact / speech not dysarthric/ sensory and motor in tact PSYCHIATRIC: A&Ox 3 able to understand and follow all commands LABORATORY DATA, IMAGING STUDIES, MICROBIOLOGY: Please see below. CT head: 1. No acute intracranial abnormality. 2. Atrophy and chronic deep white matter ischemic changes. CTA chest: No pulmonary embolism. Nodule at the right lung base measuring 4 mm which is stable since 06/29/2017. MRI brain: 1. No restricted diffusion within the brain to suggest an acute infarct. 2. There are scattered foci of FLAIR hyperintensity within the cerebral white matter. In a patient this age, this likely represents chronic small vessel ischemic disease. 3. Moderate atrophy. 4. There is an empty sella. MRA brain without contrast: 1. There is severely decreased flow and possible occlusion of the V4 segment of the left vertebral artery. This is new compared to the prior study. 2. Mild stenosis of the cavernous left internal carotid artery. 3. 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 There is no progression compared to the prior study. MRA neck without contrast: 1. Flow is poorly visualized in the region of the proximal left external carotid artery, consistent with severe stenosis or occlusion. 2. There is moderate to severe stenosis of the proximal left subclavian artery. 3. 50% stenosis of the proximal right internal carotid artery. 4. Approximately 65% stenosis of the proximal left internal carotid artery. 5. Moderate stenosis of the proximal right external carotid artery. 6. Mild stenosis of the V1 segment of the left vertebral artery. Artifact limits evaluation of this segment. 7. Flow voids are identified involving left V3 and proximal V4 segments of the left vertebral artery. This is likely artifactual. Artifact also limits evaluation of right V3 and proximal V4 segments. Flow-limiting pathology cannot be excluded. Echocardiogram pending results ASSESSMENT: is an 83 yr old w a hx of HTN, TIA, Chronic CAD and Dyslipidemia who will be admitted for evaluation of dizziness and management of uncontrolled blood pressure, mild COPD exacerbation, UTI. PLAN: 1. Dizziness possibly 2/2 uncontrolled BP vs. Vascular pathology of V3, V4 LVA with possible TIA. Hx of prior TIA. Thus far orthostatics neg, neuro checks neg. Discussed with neurology who recommends dual platelet therapy, consulting vascular surgery to see what may be recommended, if anything, for stenosis/possible occlusion. Monitor on telemetry, daily labs, neuro checks. C/w resumed plavix, ASA and ezetimibe. 2. Uncontrolled HTN. BP better controlled since admission. C/w Losartan. 3. Mild COPD exacerbation. On RA, saturating well, mild wheezing. C/w duonebs, albuterol, prednisone. 4. UTI. UCx NG, d/radha Ceftriaxone 5. Chronic CAD w mid LAD, L Cx and proximal RCA lesions / Dyslipidemia. C/w ASA, plavix, and ezetmibe 6. Chronic back pain s/p laminectomy. Stable. C/w gabapentin 7. DVT px: ASA plavix above, holding off on additional lovenox with history of bleeding on plavix. SCD. DISPOSITION: F/u recommendations of vascular surgery, neurology. Plan is likely home at discharge. Will need PT/OT prior to discussion of discharge VS, I&O, 24H, Fishbone Vital Signs/I&O Vital Signs Date Time Temp Pulse Resp B/P (MAP) Pulse Ox O2 Delivery O2 Flow Rate FiO2 10/12/19 12:00 96.7 76 18 146/64 (91) 98 Room Air I&O- Last 24 Hours up to 6 AM 10/12/19 06:00 Intake Total 50 ml Output Total 200 ml Balance -150 ml Laboratory Data Microbiology Microbiology 10/10/19 Urine Culture - Final, Complete Current Medications Current Medications Medications (Trade) Dose Ordered Sig/Kris Route PRN Reason Start Time Stop Time Status Last Admin Dose Admin Acetaminophen (Tylenol Tab) 650 mg Q4H PRN PO PAIN OR FEVER 10/10/19 22:30 10/11/19 02:40 Albuterol Sulfate (Proventil Neb) 2.5 mg Q1HP PRN NEB SHORTNESS OF BREATH 10/11/19 00:45 Albuterol/ Ipratropium (Duoneb (Ipr 0.5mg/Alb 2.5mg)) 3 ml RQ6H NEB 10/11/19 02:00 10/12/19 07:32 Bisacodyl (Dulcolax Tab) 10 mg DAILY PRN PO CONSTIPATION 10/11/19 00:45 Ceftriaxone Sodium 1 gm/ Dextrose 50 ml @ 100 mls/hr Q24H IV 10/11/19 09:00 10/12/19 08:06 DC 10/11/19 09:30 Clopidogrel Bisulfate (PLAVix) 75 mg DAILY PO 10/12/19 02:00 10/12/19 04:15 Enoxaparin Sodium (Lovenox) 40 mg DAILY SC 10/11/19 09:00 10/12/19 09:01 EZETIMIBE (Zetia) 10 mg QHS PO 10/11/19 21:00 10/11/19 20:24 Fluticasone Propionate (Flonase 0.05% Nasal Protem) 1 spray BID PRN NA NASAL CONGESTION 10/11/19 00:45 Gabapentin (Neurontin) 300 mg TID PO 10/11/19 09:00 10/12/19 09:01 Home Med (Med Rec Complete!) ASDIRECTED XX 10/10/19 23:00 10/10/19 23:00 DC Losartan Potassium (Cozaar) 25 mg DAILY PO 10/11/19 09:00 10/12/19 09:01 Magnesium Hydroxide (Milk Of Magnesia) 30 ml DAILY PRN PO CONSTIPATION 10/10/19 22:30 Ondansetron HCl (Zofran Odt) 2 mg Q6HP PRN PO NAUSEA 10/11/19 03:15 10/11/19 03:16 Pantoprazole Sodium (Protonix) 40 mg DAILY PO 10/11/19 06:00 10/12/19 09:01 Polyethylene Glycol (Miralax) 1 pkt DAILY PRN PO CONSTIPATION 10/11/19 00:45 Prednisone (Deltasone) 40 mg DAILY PO 10/11/19 06:00 10/12/19 09:00 Allergies Coded Allergies: ENVIROMENTAL (Verified Allergy, Unknown, 07/06/07) letrozole (Unverified Adverse Reaction, Unknown, 10/10/19) Jessy Johnson MD Oct 12, 2019 13:22
--- NOTE | 2019-10-12 16:42 | REPVR ---
PROCEDURE INFORMATION: Exam: US Duplex Bilateral Extracranial Arteries Exam date and time: 10/12/2019 3:48 PM Age: 83 years old Clinical indication: Dizziness; Additional info: R/O carotid stenosis TECHNIQUE: Imaging protocol: Real-time Duplex ultrasound scan of the bilateral carotid and vertebral arteries combining bryant scale, color Doppler and spectral waveform analysis. Bilateral exam. COMPARISON: CT Head without contrast 10/11/2019 9:31 PM FINDINGS: Right common carotid artery: Proximal 91.0 cm/second. Mid 62.7 cm/second. Distal 55.5 cm/second. Right internal carotid artery: Right carotid bulb: 69.9 cm/second. Common carotid artery type waveform suggesting possible distal stenosis. Predominantly posterior, mixed echogenicity, predominantly medium echogenicity smooth plaque. Proximal 80.7 cm/second. Mid 125.1 cm/second. Distal 135.5 cm/second. Right ICA/CCA ratio: 1.49. Right external carotid artery: 262.8 cm/second. Right vertebral artery: Mid 71.0 cm/second, antegrade. Left common carotid artery: Moderate mid-distal calcified plaque. Proximal 60.2 cm/second. Mid 45.2 cm/second. Distal 41.1 cm/second. Left internal carotid artery: Left carotid bulb: Severe anterior calcified plaque shadowing lumen. 38.5 cm/second. Severely calcified proximal plaque shadowing lumen. Proximal 521.4 cm/second. Spectral broadening. Mid 84.1 cm/second. Distal 54.7 cm/second. Left ICA/CCA ratio: 8.66. Left external carotid artery: 213.5 cm/second. Left vertebral artery: Mid 61.5 cm/second, antegrade. IMPRESSION: 1. Severe stenosis proximal left internal carotid artery. 2. Abnormal right internal carotid artery waveform suggesting possible distal or intracranial stenosis. 3. Severe bilateral ECA stenoses. REFERENCES: SRU CRITERIA. The degree of internal carotid artery stenosis is based on criteria defined by the Society of Radiologists in Ultrasound (SRU). Normal is no stenosis. Mild is less than 50% stenosis. Moderate is 50-69% stenosis. Severe is greater than 69% stenosis to near occlusion. Near occlusion is a markedly narrowed lumen. Total occlusion is no detectable patent lumen. Electronically signed by: Richard Delacruz On 10/12/2019 16:43:03 PM
[2019-10-12] MEDS ORDERED: SLF 3 ML SYR IV PRN (19:00)
[2019-10-12] MEDS: EZETIMIBE 10 MG TAB (ZETIA) PO SCH (20:46)
[2019-10-12] MEDS: SLF 3 ML SYR IV SCH (20:47)
[2019-10-12] MEDS: ACETAMINOPHEN TAB 650MG DOSE (2X325MG) PO PRN (20:47)
[2019-10-13] VITALS (8 sets, daily range): BP systolic 120–186; BP diastolic 61–90
[2019-10-13] MEDS: IPRATROPIUM 0.5MG/ALBUTEROL 2.5MG INH SOL UD 3ML (DUONEB) NEB SCH ×4 (01:43→20:37)
[2019-10-13] MEDS: SLF 3 ML SYR IV SCH ×3 (05:29→20:27)
[2019-10-13] MEDS: GABAPENTIN 300 MG CAP PO SCH ×3 (07:47→20:27)
[2019-10-13] MEDS: LOSARTAN 25 MG TAB PO SCH (07:47)
[2019-10-13] MEDS: ASPIRIN 325 MG TAB PO SCH (07:47)
[2019-10-13] MEDS: PANTOPRAZOLE 40MG TAB (PROTONIX) PO SCH (07:48)
[2019-10-13] MEDS: CLOPIDOGREL 75 MG TAB PO SCH (07:48)
--- NOTE | 2019-10-13 08:25 | CR.PDOC ---
General Date of Consultation: Oct 13, [address] Chaudhari. REASON FOR CONSULTATION/CHIEF COMPLAINT: Vertebral stenosis HISTORY OF PRESENT ILLNESS: The pt is am 83 yo female who came to ED reporting "I don't feel good", admitted as per Hospitalist with dizziness, uncontrolled HTN, CTA head indicated reduced flow left vertebral artery, Vascular Surgery consulted, carotid US was requested. ALLERGIES: Please see below. HOME MEDICATIONS: Please see below. PAST MEDICAL/ SURGICAL HISTORY: Chronic HTN hx of TIA Chronic CAD w mid LAD, L Cx and proximal RCA lesions Dyslipidemia COPD Osteopenia Hx of Takatsubo confirmed w angiogram in 2018 (repeat Echo showed EF recovered from 35% to 65% in 2018) Chronic back pain s/p laminectomy GERD w hiatal hernia Hx of Breast cancer tx w lumpectomy and radiation in 2009, declined adjuvant aromatase inhibitor Cholecystectomy Bilateral Knee arthroplasty Repair of deviated septum SOCIAL HISTORY: Former smoker FAMILY HISTORY: Cancer / Alcoholism REVIEW OF SYSTEMS: As noted in HPI otherwise 11pt ROS unremarkable. PHYSICAL EXAMINATION: VITAL SIGNS: Please see below. GENERAL APPEARANCE: NAD. HEENT: MMM. RESPIRATORY: Good A/E. CARDIOVASCULAR: RRR. EXTREMITIES: no edema. NEUROLOGICAL: no focal deficits. . PSYCHIATRIC: A/O. LABORATORY DATA: Please see below. Exam: US Duplex Bilateral Extracranial Arteries Exam date and time: 10/12/2019 3:48 PM Age: 83 years old Clinical indication: Dizziness; Additional info: R/O carotid stenosis TECHNIQUE: Imaging protocol: Real-time Duplex ultrasound scan of the bilateral carotid and vertebral arteries combining bryant scale, color Doppler and spectral waveform analysis. Bilateral exam. COMPARISON: CT Head without contrast 10/11/2019 9:31 PM FINDINGS: Right common carotid artery: Proximal 91.0 cm/second. Mid 62.7 cm/second. Distal 55.5 cm/second. Right internal carotid artery: Right carotid bulb: 69.9 cm/second. Common carotid artery type waveform suggesting possible distal stenosis. Predominantly posterior, mixed echogenicity, predominantly medium echogenicity smooth plaque. Proximal 80.7 cm/second. Mid 125.1 cm/second. Distal 135.5 cm/second. Right ICA/CCA ratio: 1.49. Right external carotid artery: 262.8 cm/second. Right vertebral artery: Mid 71.0 cm/second, antegrade. Left common carotid artery: Moderate mid-distal calcified plaque. Proximal 60.2 cm/second. Mid 45.2 cm/second. Distal 41.1 cm/second. Left internal carotid artery: Left carotid bulb: Severe anterior calcified plaque shadowing lumen. 38.5 cm/second. Severely calcified proximal plaque shadowing lumen. Proximal 521.4 cm/second. Spectral broadening. Mid 84.1 cm/second. Distal 54.7 cm/second. Left ICA/CCA ratio: 8.66. Left external carotid artery: 213.5 cm/second. Left vertebral artery: Mid 61.5 cm/second, antegrade. IMPRESSION: 1. Severe stenosis proximal left internal carotid artery. 2. Abnormal right internal carotid artery waveform suggesting possible distal or intracranial stenosis. 3. Severe bilateral ECA stenoses. ASSESSMENT/PLAN: 1. Carotid Stenosis. Left internal carotid artery with severely calcified proximal plaque shadowing lumen. Proximal 521.4 cm/second. EDV not reported. Left ICA/CCA ratio: 8.66. l eft Vertebral Antegrade. Right internal carotid artery with PSV 135.5 cm/second. EDV not reported. Right ICA/CCA ratio: 1.49. right vertebral antegrade. Dr Chaudhari has questions about the study and has asked for some of the images to be repeated to verify findings. Further recommendations to follow after reviewing additional images. Pt is on Plavix/ASA. Would recommend consideration of statin for best medical mgmt if no other contraindication, will defer to primary service. Will further review with Dr Chaudhari for additional recommendations. Vital Signs/I&O Vital Signs Date Time Temp Pulse Resp B/P (MAP) Pulse Ox O2 Delivery O2 Flow Rate FiO2 10/13/19 07:47 186/84 10/13/19 05:51 70 70 70 10/13/19 04:00 96.4 16 98 Room Air I&O- Last 24 Hours up to 6 AM 10/13/19 06:00 Intake Total 830 ml Output Total 1050 ml Balance -220 ml Laboratory Data Microbiology Microbiology 10/10/19 Urine Culture - Final, Complete Allergies Coded Allergies: ENVIROMENTAL (Verified Allergy, Unknown, 07/06/07) letrozole (Unverified Adverse Reaction, Unknown, 10/10/19) Home Medications Scheduled Diphenhydramine HCl (Benadryl) 25 Mg Capsule, 50 MG PO QHS, (Reported) Ezetimibe (Ezetimibe) 10 Mg Tab, 10 MG PO QHS, (Reported) Gabapentin (Gabapentin) 300 Mg Capsule, 300 MG PO TID, (Reported) Scheduled PRN Acetaminophen (Acetaminophen) 500 Mg Tab, 1,000 MG PO Q6H PRN for PAIN, (Reported) Albuterol Sulfate (Ventolin Hfa) 108 Mcg/Act Aer, 2 PUFFS INH QID PRN for SHORTNESS OF BREATH, (Reported) Bisacodyl (Dulcolax) 5 Mg Tab, 10 MG PO DAILY PRN for CONSTIPATION, (Reported) Carboxymethylcellulose Sodium (Refresh Tears) 0.5 % Julio, 1 DROP OU QID PRN for DRY EYES, (Reported) Fluticasone Propionate (Flonase Allergy Relief) 50 Mcg/Act Spr, 1 SPRAY NA BID PRN for NASAL CONGESTION, (Reported) Mometasone/Formoterol (Dulera 200 Mcg/5 Mcg Inhaler) 1 Aer Aer, 2 PUFFS INH BID PRN for SHORTNESS OF BREATH, (Reported) Polyethylene Glycol 3350 (Miralax) 17 Gm Powd.pack, 17 GM PO DAILY PRN for CONSTIPATION, (Reported) Eleonora Quijano Oct 13, 2019 08:25 FRANKY CHAUDHARI MD Oct 13, 2019 15:26
[2019-10-13] MEDS ORDERED: LOSARTAN 50MG TABLET PO SCH (09:00)
[2019-10-13] MEDS ORDERED: predniSONE 20 MG TAB PO SCH (09:00)
[2019-10-13 10:19] LABS: HEMATOCRIT 37.9 % (36.0-47.0); HEMOGLOBIN 12.4 g/dl (12.0-15.5); MEAN CORPUSCULAR HEMOGLOBIN 31.2 pg (27.0-33.0); MEAN CORPUSCULAR HGB CONC 32.7 g/dl (32.0-36.5); MEAN CORPUSCULAR VOLUME 95.5 fl (80.0-96.0); PLATELET COUNT, AUTOMATED 220 10^3/uL (150-450); RED BLOOD COUNT 3.97 10^6/uL (4.00-5.40); WHITE BLOOD COUNT 6.5 10^3/uL (4.0-10.0)
[2019-10-13 10:44] LABS: CALCIUM LEVEL 9.3 MG/DL (8.8-10.2); CREATININE FOR GFR 1.02 MG/DL (0.55-1.30); GLOMERULAR FILTRATION RATE 55.4 (>32); POTASSIUM SERUM 3.6 MEQ/L (3.5-5.1)
[2019-10-13] MEDS ORDERED: LOSARTAN 25 MG TAB PO ONE (11:30)
--- NOTE | 2019-10-13 11:43 | IPNPDOC ---
Date Seen The patient was seen on 10/13/19. Progress Note Pt seen and examined. I reviewed her carotid duplex, and felt that likely the high grade stenosis interpreted by radiology at the origin of the left internal carotid artery was actually a L ECA stenosis. I asked our US team to repeat the L ICA study, and they found that indeed the severe stenosis was at the origin of the L ECA, not ICA. Based on velocities, the L ICA is mildly stenotic. I dunia mate 50-55% stenosis. The R ICA stenosis is <50% based on velocities. Both vertebral are antegrade and no signs of distal obstruction noted based on waveforms. No vascular intervention needed at this time, but we would like to see the patient with a repeat carotid duplex in 6 months for surveillance. We appreciate the opportunity to participate in the care of this patient. VS, I&O, 24H, Fishbone Vital Signs/I&O Vital Signs Date Time Temp Pulse Resp B/P (MAP) Pulse Ox O2 Delivery O2 Flow Rate FiO2 10/13/19 09:02 156/70 (98) 10/13/19 08:00 97.4 63 16 94 Room Air I&O- Last 24 Hours up to 6 AM 10/13/19 06:00 Intake Total 830 ml Output Total 1050 ml Balance -220 ml Laboratory Data 24H LABS Laboratory Tests 2 10/13/19 09:24: Nucleated Red Blood Cells % (auto) 0.0, Anion Gap 6L, Glomerular Filtration Rate 55.4, Calcium Level 9.3 CBC/BMP Laboratory Tests 10/13/19 09:24 Microbiology Microbiology 10/10/19 Urine Culture - Final, Complete FRANKY CARDONA MD Oct 13, 2019 11:43
--- NOTE | 2019-10-13 17:49 | IPNPDOC ---
Date Seen The patient was seen on 10/13/19. Progress Note SUBJECTIVE: Orthostatics positive this AM, systolic BP >180 mmHg. Added amlodipine and gave increased dose of losartan. BP much improved later in day 130-[address] Chaudhari reviewed repeat US carotid arteries showed stenosis; however, no surgical intervention required. Optimizing medications with adding statin. D/c prednisone. Tolerating plavix, ASA, no bleeding. .OOBTC with meals and participating with PT/OT. Patient currently denies chest pain, shortness of breath, fever, chills. OBJECTIVE: PHYSICAL EXAMINATION: VITAL SIGNS: Please see below. GENERAL APPEARANCE: NAD, resting in bed HEENT: EOMI , PERRLA, moist oral mucosa CARDIOVASCULAR: S1S2 +, no MRG LUNGS: CTAB, no wheezing/rhonchi or rales ABDOMEN: flat, soft, nontender, nondistended, BS + in 4 quad MUSCULOSKELETAL: IRAM x 4 extremities INTEGUMENT: Upper ext bruises, not new and unchanged. Nontender, no erythema NEUROLOGICAL: CN 2-12 intact, speech not dysarthric, sensory and motor in tact PSYCHIATRIC: A&Ox 3, following all commands, pleasant LABORATORY DATA, IMAGING STUDIES, MICROBIOLOGY: Please see below. CT head: 1. No acute intracranial abnormality. 2. Atrophy and chronic deep white matter ischemic changes. CTA chest: No pulmonary embolism. Nodule at the right lung base measuring 4 mm which is stable since 06/29/2017. MRI brain: 1. No restricted diffusion within the brain to suggest an acute infarct. 2. There are scattered foci of FLAIR hyperintensity within the cerebral white matter. In a patient this age, this likely represents chronic small vessel ischemic disease. 3. Moderate atrophy. 4. There is an empty sella. MRA brain without contrast: 1. There is severely decreased flow and possible occlusion of the V4 segment of the left vertebral artery. This is new compared to the prior study. 2. Mild stenosis of the cavernous left internal carotid artery. 3. 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 There is no progression compared to the prior study. MRA neck without contrast: 1. Flow is poorly visualized in the region of the proximal left external carotid artery, consistent with severe stenosis or occlusion. 2. There is moderate to severe stenosis of the proximal left subclavian artery. 3. 50% stenosis of the proximal right internal carotid artery. 4. Approximately 65% stenosis of the proximal left internal carotid artery. 5. Moderate stenosis of the proximal right external carotid artery. 6. Mild stenosis of the V1 segment of the left vertebral artery. Artifact limits evaluation of this segment. 7. Flow voids are identified involving left V3 and proximal V4 segments of the left vertebral artery. This is likely artifactual. Artifact also limits evaluation of right V3 and proximal V4 segments. Flow-limiting pathology cannot be excluded. Echocardiogram result pending US carotid 10/14/19 (repeat) and reviewed by Dr. Tilley: Severe stenosis was at the origin of the L ECA, not ICA. Based on velocities, the L ICA is mildly stenotic. approx 50-55% stenosis. The R ICA stenosis is <50% based on velocities. Both vertebral are antegrade and no signs of distal obstruction noted based on waveforms ASSESSMENT: is an 83 yr old w a hx of HTN, TIA, Chronic CAD and HLD who will be admitted for evaluation of dizziness and management of uncontrolled blood pressure, mild COPD exacerbation, UTI. PLAN: 1. Dizziness possibly 2/2 uncontrolled BP, TIA . + orthostatic hypotension could also be cause. Per vascular surgery (Dr. Chaudhari), she is not con cerned for flow void in V3, V4 LVA and dose not believe stenosis of carotid arteries responsible for dizziness. Hx of prior TIA. BP better controlled with addition of amlodipine to losartan, nothing new on neuro checks. C/w optimization of medications, dual platelet therapy, added statin with ezetimibe. Monitor on telemetry, daily labs, neuro checks. C/w resumed plavix, ASA and ezetimibe. 2. Uncontrolled HTN. BP better controlled this afternoon. Avoid increasing losartan, as Cr bumped some (still wnl; however) and added CCB. 3. Mild COPD exacerbation. On RA, saturating well, no wheezing. C/w duonebs, albuterol. D/c prednisone today. 4. Carotid stenosis. See US carotid above. Per vascular, would like to see the patient with a repeat carotid duplex in 6 months for surveillance. C/w plavix, ASA, statin, ezetimibe. 5. Chronic CAD w mid LAD, L Cx and proximal RCA lesions. No chest pain, cardiac complaints. C/w cardiac meds. 6. HLD. Started atorvastatin, c/w ezetmibe 7. Chronic back pain s/p laminectomy. Stable. C/w gabapentin 8. DVT px: ASA plavix above, holding off on additional lovenox with history of bleeding on plavix. SCD. DISPOSITION: Per vascular, no need for surgical intervention. Will continue to medically optimize regimen for BP. Updated son Demar today over phone in AM. Plan is discharge home when patient's BP better controlled and we are not seeing such drastic fluctuations in orthostatics. C/w PT/OT VS, I&O, 24H, Fishbone Vital Signs/I&O Vital Signs Date Time Temp Pulse Resp B/P (MAP) Pulse Ox O2 Delivery O2 Flow Rate FiO2 10/13/19 16:00 97.8 82 16 144/90 (108) 97 Room Air I&O- Last 24 Hours up to 6 AM 10/13/19 06:00 Intake Total 830 ml Output Total 1050 ml Balance -220 ml Laboratory Data 24H LABS Laboratory Tests 2 10/13/19 09:24: Nucleated Red Blood Cells % (auto) 0.0, Anion Gap 6L, Glomerular Filtration Rate 55.4, Calcium Level 9.3 CBC/BMP Laboratory Tests 10/13/19 09:24 Microbiology Microbiology 10/10/19 Urine Culture - Final, Complete Current Medications Current Medications Medications (Trade) Dose Ordered Sig/Kris Route PRN Reason Start Time Stop Time Status Last Admin Dose Admin Acetaminophen (Tylenol Tab) 650 mg Q4H PRN PO PAIN OR FEVER 10/10/19 22:30 10/12/19 20:47 Albuterol Sulfate (Proventil Neb) 2.5 mg Q1HP PRN NEB SHORTNESS OF BREATH 10/11/19 00:45 Albuterol/ Ipratropium (Duoneb (Ipr 0.5mg/Alb 2.5mg)) 3 ml RQ6H NEB 10/11/19 02:00 10/13/19 13:33 Amlodipine Besylate (Norvasc) 5 mg DAILY PO 10/14/19 09:00 Aspirin (Aspirin) 325 mg DAILY PO 10/13/19 09:00 10/13/19 07:47 Atorvastatin Calcium (Lipitor) 40 mg DAILY PO 10/14/19 09:00 UNV Bisacodyl (Dulcolax Tab) 10 mg DAILY PRN PO CONSTIPATION 10/11/19 00:45 Ceftriaxone Sodium 1 gm/ Dextrose 50 ml @ 100 mls/hr Q24H IV 10/11/19 09:00 10/12/19 08:06 DC 10/11/19 09:30 Clopidogrel Bisulfate (PLAVix) 75 mg DAILY PO 10/12/19 02:00 10/13/19 07:48 Enoxaparin Sodium (Lovenox) 40 mg DAILY SC 10/11/19 09:00 10/12/19 13:52 DC 10/12/19 09:01 EZETIMIBE (Zetia) 10 mg QHS PO 10/11/19 21:00 10/12/19 20:46 Fluticasone Propionate (Flonase 0.05% Nasal [place]) 1 spray BID PRN NA NASAL CONGESTION 10/11/19 00:45 Gabapentin (Neurontin) 300 mg TID PO 10/11/19 09:00 10/13/19 16:26 Home Med (Med Rec Complete!) ASDIRECTED XX 10/10/19 23:00 10/10/19 23:00 DC Losartan Potassium (Cozaar) 25 mg DAILY PO 10/11/19 09:00 10/13/19 08:08 DC 10/13/19 07:47 Losartan Potassium (Cozaar) 25 mg DAILY PO 10/14/19 09:00 Losartan Potassium (Cozaar) 50 mg DAILY PO 10/13/19 09:00 10/13/19 08:17 DC Losartan Potassium (Cozaar) 50 mg DAILY PO 10/14/19 09:00 10/13/19 11:29 DC Magnesium Hydroxide (Milk Of Magnesia) 30 ml DAILY PRN PO CONSTIPATION 10/10/19 22:30 Ondansetron HCl (Zofran Odt) 2 mg Q6HP PRN PO NAUSEA 10/11/19 03:15 10/11/19 03:16 Pantoprazole Sodium (Protonix) 40 mg DAILY PO 10/11/19 06:00 10/13/19 07:48 Polyethylene Glycol (Miralax) 1 pkt DAILY PRN PO CONSTIPATION 10/11/19 00:45 Prednisone (Deltasone) 20 mg DAILY PO 10/13/19 09:00 10/13/19 07:47 Prednisone (Deltasone) 40 mg DAILY PO 10/11/19 06:00 10/12/19 13:26 DC 10/12/19 09:00 Sodium Chloride (Saline Lock Flush) 2 ml ASDIRECTED PRN IV SEE LABEL COMMENTS 10/12/19 19:00 Sodium Chloride (Saline Lock Flush) 2 ml SLF IV 10/12/19 22:00 10/13/19 16:27 Allergies Coded Allergies: ENVIROMENTAL (Verified Allergy, Unknown, 07/06/07) letrozole (Unverified Adverse Reaction, Unknown, 10/10/19) Jessy Johnson MD Oct 13, 2019 17:49
[2019-10-13] MEDS: ATORVASTATIN 20 MG TAB PO SCH (18:11)
[2019-10-13] MEDS: EZETIMIBE 10 MG TAB (ZETIA) PO SCH (20:27)
[2019-10-13] MEDS: ACETAMINOPHEN TAB 650MG DOSE (2X325MG) PO PRN (20:27)
[2019-10-14] VITALS (9 sets, daily range): BP systolic 130–190; BP diastolic 64–84; PULSE 73
[2019-10-14] MEDS: IPRATROPIUM 0.5MG/ALBUTEROL 2.5MG INH SOL UD 3ML (DUONEB) NEB SCH ×3 (01:24→19:35)
[2019-10-14] MEDS ORDERED: amLODIPine 5 MG TAB PO SCH (04:40)
[2019-10-14] MEDS: SLF 3 ML SYR IV SCH ×3 (05:22→21:29)
[2019-10-14 05:49] LABS: HEMATOCRIT 35.8 % (36.0-47.0); HEMOGLOBIN 11.9 g/dl (12.0-15.5); MEAN CORPUSCULAR HEMOGLOBIN 31.4 pg (27.0-33.0); MEAN CORPUSCULAR HGB CONC 33.2 g/dl (32.0-36.5); MEAN CORPUSCULAR VOLUME 94.5 fl (80.0-96.0); PLATELET COUNT, AUTOMATED 193 10^3/uL (150-450); RED BLOOD COUNT 3.79 10^6/uL (4.00-5.40); WHITE BLOOD COUNT 5.3 10^3/uL (4.0-10.0)
[2019-10-14 06:15] LABS: ALBUMIN 3.2 GM/DL (3.2-5.2); ALT/SGPT 26 U/L (12-78); BILIRUBIN,TOTAL 0.4 MG/DL (0.2-1.0); BLOOD UREA NITROGEN 15 MG/DL (7-18); CALCIUM LEVEL 9.4 MG/DL (8.8-10.2); CARBON DIOXIDE LEVEL 29 MEQ/L (21-32); CHLORIDE LEVEL 107 MEQ/L (98-107); CREATININE FOR GFR 0.82 MG/DL (0.55-1.30); GLOMERULAR FILTRATION RATE > 60.0 (>32); GLUCOSE, FASTING 88 MG/DL (70-100); POTASSIUM SERUM 4.3 MEQ/L (3.5-5.1); SODIUM LEVEL 140 MEQ/L (136-145); TOTAL PROTEIN 6.3 GM/DL (6.4-8.2)
[2019-10-14] MEDS ORDERED: hydrALAZINE 20MG/ML 1ML VIAL (J0360 PER 20MG) As Ordered ONE (08:28)
[2019-10-14] MEDS: ACETAMINOPHEN TAB 650MG DOSE (2X325MG) PO PRN ×2 (08:38→21:29)
[2019-10-14] MEDS ORDERED: hydrALAZINE 20MG/ML 1ML VIAL (J0360 PER 20MG) IV ONE (09:00)
[2019-10-14] MEDS ORDERED: LOSARTAN 50MG TABLET PO SCH (09:00)
[2019-10-14] MEDS: GABAPENTIN 300 MG CAP PO SCH ×3 (09:11→21:28)
[2019-10-14] MEDS: ASPIRIN 325 MG TAB PO SCH (09:11)
[2019-10-14] MEDS: ATORVASTATIN 20 MG TAB PO SCH (09:11)
[2019-10-14] MEDS: BISACODYL 5 MG TAB PO PRN (09:12)
[2019-10-14] MEDS: LOSARTAN 25 MG TAB PO SCH (09:12)
[2019-10-14] MEDS: MOM 30ML SUSPENSION UDC PO PRN (09:12)
[2019-10-14] MEDS: CLOPIDOGREL 75 MG TAB PO SCH (09:12)
[2019-10-14] MEDS: PANTOPRAZOLE 40MG TAB (PROTONIX) PO SCH (09:12)
[2019-10-14 09:20] LABS: TROPONIN I < 0.02 NG/ML (< 0.10)
[2019-10-14] MEDS ORDERED: SALIVA SUBSTITUTE(MOUTHKOTE) BTL MT PRN (11:15)
--- NOTE | 2019-10-14 14:55 | IPNPDOC ---
Date Seen The patient was seen on 10/14/19. Progress Note SUBJECTIVE: BP 190 systolic, increased amlodpine further as patient felt flushed and had facial numbness, no AMS or weakness during episode of hypertension. Chest pressure she has is recreatable with palpation of chest wall, states she has had this pain in the past after breast cancer. Troponin neg. Ordered renal US to further look into HTN. Patient currently denies increased shortness of breath, fever, chills. OBJECTIVE: PHYSICAL EXAMINATION: VITAL SIGNS: Please see below. GENERAL APPEARANCE: NAD, resting in bed HEENT: EOMI , PERRLA, moist oral mucosa CARDIOVASCULAR: S1S2 +, no MRG CHEST: pain on palpation of anterior chest wall, no erythema or swelling noted LUNGS: CTAB, no wheezing/rhonchi or rales ABDOMEN: flat, soft, nontender, nondistended, BS + in 4 quad MUSCULOSKELETAL: IRAM x 4 extremities INTEGUMENT: Upper ext bruises, not new and unchanged. Nontender, no erythema NEUROLOGICAL: CN 2-12 intact, speech not dysarthric, sensory and motor in tact PSYCHIATRIC: A&Ox 3, following all commands, pleasant LABORATORY DATA, IMAGING STUDIES, MICROBIOLOGY: Please see below. CT head: 1. No acute intracranial abnormality. 2. Atrophy and chronic deep white matter ischemic changes. CTA chest: No pulmonary embolism. Nodule at the right lung base measuring 4 mm which is stable since 06/29/2017. MRI brain: 1. No restricted diffusion within the brain to suggest an acute infarct. 2. There are scattered foci of FLAIR hyperintensity within the cerebral white matter. In a patient this age, this likely represents chronic small vessel ischemic disease. 3. Moderate atrophy. 4. There is an empty sella. MRA brain without contrast: 1. There is severely decreased flow and possible occlusion of the V4 segment of the left vertebral artery. This is new compared to the prior study. 2. Mild stenosis of the cavernous left internal carotid artery. 3. 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 There is no progression compared to the prior study. MRA neck without contrast: 1. Flow is poorly visualized in the region of the proximal left external carotid artery, consistent with severe stenosis or occlusion. 2. There is moderate to severe stenosis of the proximal left subclavian artery. 3. 50% stenosis of the proximal right internal carotid artery. 4. Approximately 65% stenosis of the proximal left internal carotid artery. 5. Moderate stenosis of the proximal right external carotid artery. 6. Mild stenosis of the V1 segment of the left vertebral artery. Artifact limits evaluation of this segment. 7. Flow voids are identified involving left V3 and proximal V4 segments of the left vertebral artery. This is likely artifactual. Artifact also limits evaluation of right V3 and proximal V4 segments. Flow-limiting pathology cannot be excluded. US carotid 10/14/19 (repeat) and reviewed by Dr. Tilley: Severe stenosis was at the origin of the L ECA, not ICA. Based on velocities, the L ICA is mildly stenotic. approx 50-55% stenosis. The R ICA stenosis is <50% based on velocities. Both vertebral are antegrade and no signs of distal obstruction noted based on waveforms Renal US: pending results Echocardiogram: F/u results ASSESSMENT: is an 83 yr old w a hx of HTN, TIA, Chronic CAD and HLD who will be admitted for evaluation of dizziness and management of uncontrolled blood pressure, mild COPD exacerbation, UTI. PLAN: 1. Uncontrolled HTN likely cause of dizziness, ? TIA, neuro symptoms patient presented with. BP 190 mmHg this AM, has been difficult to control this admission. Increased CCB to 10 mg PO daily in addition to losartan. F/u renal US, if need too can increase losartan. Consider cardiology consult if BP remains elevated. 2. Dizziness likely 2/2 uncontrolled BP, TIA . Not orthostatic today but numbness of face with incr BP. C/w optimization of medications, dual platelet therapy, statin with ezetimibe. Monitor on telemetry, daily labs. PT/OT. Anxiety not likely component of this. 3. COPD with resolved exacerbation. Intermittent wheezing at time; however, on RA, saturating well. C/w duonebs, albuterol. No longer on prednisone 4. Carotid stenosis. See US carotid above. Per vascular, would like to see the patient with a repeat carotid duplex in 6 months for surveillance. C/w plavix, ASA, statin, ezetimibe. 5. Chronic CAD w mid LAD, L Cx and proximal RCA lesions. No chest pain, cardiac complaints. C/w cardiac meds. 6. HLD. Last lipid panel in 2019 wnl. C/w atorvastatin, ezetmibe 7. Chronic back pain s/p laminectomy. Stable. C/w gabapentin 8. DVT px: ASA plavix above, holding off on additional lovenox with history of bleeding on plavix. SCD. DISPOSITION: Continue to medically optimize regimen for BP. Updated son Demar again today over phone in AM. Plan is discharge home when patient's BP better c ontrolled. C/w PT/OT VS, I&O, 24H, Fishbone Vital Signs/I&O Vital Signs Date Time Temp Pulse Resp B/P (MAP) Pulse Ox O2 Delivery O2 Flow Rate FiO2 10/14/19 12:00 97.6 76 20 156/74 (101) 96 Room Air I&O- Last 24 Hours up to 6 AM 10/14/19 06:00 Intake Total 600 ml Output Total 1900 ml Balance -1300 ml Laboratory Data 24H LABS Laboratory Tests 2 10/14/19 05:22: Nucleated Red Blood Cells % (auto) 0.0, Anion Gap 4L, Glomerular Filtration Rate > 60.0, Calcium Level 9.4, Total Bilirubin 0.4, Aspartate Amino Transf (AST/SGOT) 24, Alanine Aminotransferase (ALT/SGPT) 26, Alkaline Phosphatase 45, Total Protein 6.3L, Albumin 3.2, Albumin/Globulin Ratio 1.0L 10/14/19 08:32: Troponin I < 0.02, Thyroid Stimulating Hormone (TSH) 1.900 CBC/BMP Laboratory Tests 10/14/19 05:22 Microbiology Microbiology 10/10/19 Urine Culture - Final, Complete Current Medications Current Medications Medications (Trade) Dose Ordered Sig/Kris Route PRN Reason Start Time Stop Time Status Last Admin Dose Admin Acetaminophen (Tylenol Tab) 650 mg Q4H PRN PO PAIN OR FEVER 10/10/19 22:30 10/14/19 08:38 Albuterol Sulfate (Proventil Neb) 2.5 mg Q1HP PRN NEB SHORTNESS OF BREATH 10/11/19 00:45 Albuterol/ Ipratropium (Duoneb (Ipr 0.5mg/Alb 2.5mg)) 3 ml RQ6H NEB 10/11/19 02:00 10/14/19 08:19 Amlodipine Besylate (Norvasc) 5 mg DAILY PO 10/14/19 04:40 10/14/19 04:53 Aspirin (Aspirin) 325 mg DAILY PO 10/13/19 09:00 10/14/19 09:11 Atorvastatin Calcium (Lipitor) 40 mg DAILY PO 10/13/19 09:00 10/14/19 09:11 Bisacodyl (Dulcolax Tab) 10 mg DAILY PRN PO CONSTIPATION 10/11/19 00:45 10/14/19 09:12 Ceftriaxone Sodium 1 gm/ Dextrose 50 ml @ 100 mls/hr Q24H IV 10/11/19 09:00 10/12/19 08:06 DC 10/11/19 09:30 Clopidogrel Bisulfate (PLAVix) 75 mg DAILY PO 10/12/19 02:00 10/14/19 09:12 Enoxaparin Sodium (Lovenox) 40 mg DAILY SC 10/11/19 09:00 10/12/19 13:52 DC 10/12/19 09:01 EZETIMIBE (Zetia) 10 mg QHS PO 10/11/19 21:00 10/13/19 20:27 Fluticasone Propionate (Flonase 0.05% Nasal [place]) 1 spray BID PRN NA NASAL CONGESTION 10/11/19 00:45 Gabapentin (Neurontin) 300 mg TID PO 10/11/19 09:00 10/14/19 09:11 Home Med (Med Rec Complete!) ASDIRECTED XX 10/10/19 23:00 10/10/19 23:00 DC Losartan Potassium (Cozaar) 25 mg DAILY PO 10/11/19 09:00 10/13/19 08:08 DC 10/13/19 07:47 Losartan Potassium (Cozaar) 25 mg DAILY PO 10/14/19 09:00 10/14/19 09:12 Losartan Potassium (Cozaar) 50 mg DAILY PO 10/13/19 09:00 10/13/19 08:17 DC Losartan Potassium (Cozaar) 50 mg DAILY PO 10/14/19 09:00 10/13/19 11:29 DC Magnesium Hydroxide (Milk Of Magnesia) 30 ml DAILY PRN PO CONSTIPATION 10/10/19 22:30 10/14/19 09:12 Ondansetron HCl (Zofran Odt) 2 mg Q6HP PRN PO NAUSEA 10/11/19 03:15 10/11/19 03:16 Pantoprazole Sodium (Protonix) 40 mg DAILY PO 10/11/19 06:00 10/14/19 09:12 Polyethylene Glycol (Miralax) 1 pkt DAILY PRN PO CONSTIPATION 10/11/19 00:45 Prednisone (Deltasone) 20 mg DAILY PO 10/13/19 09:00 10/13/19 17:57 DC 10/13/19 07:47 Prednisone (Deltasone) 40 mg DAILY PO 10/11/19 06:00 10/12/19 13:26 DC 10/12/19 09:00 Saliva Substitute (Mouthk[place]) Q1HP PRN MT Dry Mouth 10/14/19 11:15 10/14/19 12:40 Sodium Chloride (Saline Lock Flush) 2 ml ASDIRECTED PRN IV SEE LABEL COMMENTS 10/12/19 19:00 Sodium Chloride (Saline Lock Flush) 2 ml SLF IV 10/12/19 22:00 10/14/19 05:22 Allergies Coded Allergies: ENVIROMENTAL (Verified Allergy, Unknown, 07/06/07) letrozole (Unverified Adverse Reaction, Unknown, 10/10/19) Jessy Johnson MD Oct 14, 2019 14:55
[2019-10-14] MEDS ORDERED: amLODIPine 5 MG TAB PO ONE (15:00)
[2019-10-14] MEDS: EZETIMIBE 10 MG TAB (ZETIA) PO SCH (21:27)
[2019-10-15] VITALS (8 sets, daily range): BP systolic 90–152; BP diastolic 50–72
[2019-10-15] MEDS: IPRATROPIUM 0.5MG/ALBUTEROL 2.5MG INH SOL UD 3ML (DUONEB) NEB SCH ×2 (01:16→08:42)
[2019-10-15] MEDS: SLF 3 ML SYR IV SCH ×3 (05:11→21:16)
[2019-10-15 06:18] LABS: HEMATOCRIT 39.4 % (36.0-47.0); HEMOGLOBIN 12.9 g/dl (12.0-15.5); MEAN CORPUSCULAR HEMOGLOBIN 31.1 pg (27.0-33.0); MEAN CORPUSCULAR HGB CONC 32.7 g/dl (32.0-36.5); MEAN CORPUSCULAR VOLUME 94.9 fl (80.0-96.0); PLATELET COUNT, AUTOMATED 209 10^3/uL (150-450); RED BLOOD COUNT 4.15 10^6/uL (4.00-5.40)
[2019-10-15 06:43] LABS: ALBUMIN 3.4 GM/DL (3.2-5.2); ALT/SGPT 28 U/L (12-78); BILIRUBIN,TOTAL 0.5 MG/DL (0.2-1.0); BLOOD UREA NITROGEN 12 MG/DL (7-18); CALCIUM LEVEL 9.3 MG/DL (8.8-10.2); CARBON DIOXIDE LEVEL 33 MEQ/L (21-32); CHLORIDE LEVEL 103 MEQ/L (98-107); CHOLESTEROL LEVEL 138 MG/DL (<200); CHOLESTEROL RISK RATIO 2.225 (<5); GLOMERULAR FILTRATION RATE > 60.0 (>32); GLUCOSE, FASTING 87 MG/DL (70-100); HDL CHOLESTEROL 62 MG/DL (>40); LDL CHOLESTEROL 56 MG/DL (<100); NON-HDL-C 76 MG/DL; POTASSIUM SERUM 4.2 MEQ/L (3.5-5.1); SODIUM LEVEL 139 MEQ/L (136-145); TOTAL PROTEIN 6.5 GM/DL (6.4-8.2); TRIGLYCERIDES LEVEL 102 MG/DL (<150)
[2019-10-15] MEDS: amLODIPine 10 MG TAB PO SCH (07:59)
[2019-10-15] MEDS: CLOPIDOGREL 75 MG TAB PO SCH (07:59)
[2019-10-15] MEDS: ATORVASTATIN 20 MG TAB PO SCH (07:59)
[2019-10-15] MEDS: MOM 30ML SUSPENSION UDC PO PRN (07:59)
[2019-10-15] MEDS: LOSARTAN 25 MG TAB PO SCH (08:00)
[2019-10-15] MEDS: PANTOPRAZOLE 40MG TAB (PROTONIX) PO SCH (08:00)
[2019-10-15] MEDS: GABAPENTIN 300 MG CAP PO SCH ×3 (08:00→21:16)
[2019-10-15] MEDS: ASPIRIN 325 MG TAB PO SCH (08:00)
[2019-10-15] MEDS: BISACODYL 5 MG TAB PO PRN (08:00)
[2019-10-15] MEDS ORDERED: ALBUTEROL 90 MCG/ACT 8GM HFA INHALER INH PRN (09:45)
[2019-10-15] MEDS: SYMBICORT 160/4.5MCG INHALER 6GM INH SCH ×2 (13:25→19:16)
[2019-10-15] MEDS: EZETIMIBE 10 MG TAB (ZETIA) PO SCH (21:16)
[2019-10-16] VITALS: BP 114/58
[2019-10-16 04:00] VITALS: BP 133/59
[2019-10-16 04:54] LABS: HEMATOCRIT 38.5 % (36.0-47.0); HEMOGLOBIN 12.8 g/dl (12.0-15.5); MEAN CORPUSCULAR HEMOGLOBIN 31.5 pg (27.0-33.0); MEAN CORPUSCULAR HGB CONC 33.2 g/dl (32.0-36.5); MEAN CORPUSCULAR VOLUME 94.8 fl (80.0-96.0); PLATELET COUNT, AUTOMATED 204 10^3/uL (150-450); RED BLOOD COUNT 4.06 10^6/uL (4.00-5.40); WHITE BLOOD COUNT 7.3 10^3/uL (4.0-10.0)
[2019-10-16 05:20] LABS: ALBUMIN 3.1 GM/DL (3.2-5.2); BILIRUBIN,TOTAL 0.3 MG/DL (0.2-1.0); CALCIUM LEVEL 9.3 MG/DL (8.8-10.2); CREATININE FOR GFR 1.01 MG/DL (0.55-1.30); POTASSIUM SERUM 4.5 MEQ/L (3.5-5.1); TOTAL PROTEIN 6.1 GM/DL (6.4-8.2)
[2019-10-16] MEDS: SLF 3 ML SYR IV SCH (06:03)
[2019-10-16 08:00] VITALS: BP 117/59
[2019-10-16] MEDS ORDERED: ATOR1TAB21 PO (08:05)
[2019-10-16] MEDS ORDERED: ASPI-1 PO (08:05)
[2019-10-16] MEDS ORDERED: CLOP75TA2 PO (08:05)
[2019-10-16] MEDS ORDERED: COZA1TAB PO (08:05)
[2019-10-16] MEDS ORDERED: PANT40TA29 PO (08:05)
[2019-10-16] MEDS ORDERED: AMLO1TAB25 PO (08:05)
[2019-10-16] MEDS: SYMBICORT 160/4.5MCG INHALER 6GM INH SCH (08:27)
[2019-10-16 08:48] VITALS: BP 117/59
[2019-10-16] MEDS: ATORVASTATIN 20 MG TAB PO SCH (08:48)
[2019-10-16] MEDS: amLODIPine 10 MG TAB PO SCH (08:48)
[2019-10-16] MEDS: CLOPIDOGREL 75 MG TAB PO SCH (08:48)
[2019-10-16] MEDS: PANTOPRAZOLE 40MG TAB (PROTONIX) PO SCH (08:49)
[2019-10-16] MEDS: ASPIRIN 325 MG TAB PO SCH (08:49)
[2019-10-16] MEDS: GABAPENTIN 300 MG CAP PO SCH (08:49)
[2019-10-16] MEDS: LOSARTAN 25 MG TAB PO SCH (08:49)
[2019-10-16 12:00] VITALS: BP_SYST 130; BP_SYST 142; BP_DIAS 56; BP_DIAS 70
--- NOTE | 2019-10-16 14:33 | DS.PDOC ---
Discharge Summary General Date of Admission Oct 10, 2019 at 22:21 Date of Discharge 10/16/19 Attending Physician: Jessy Johnson MD Discharge Summary HISTORY OF PRESENT ILLNESS: Patient is an 83 yr old F PMH of HTN, hx of TIA, CAD, HLD, COPD who presented to [facility] on 10/10/19 with c/o of not feeling well and having high blood pressure at home for a few weeks. She noticed that her blood pressure wouldnt go down. The patient told Mary Chester (ER provider) that she was no longer taking blood pressure medications because she feels like she is having side effects from taking them and sometimes her BP is low. Per last note in August 2019, the patient was was started on amlodipine in November 2016. In the spring she was switched to lisinopril, isosorbide, nitrates and metoprolol while the amlodipine was discontinued. In the summer she stopped taking lisinopril b/c of tongue swelling. The amlodipine was resumed in November of 2018; in summary she was supposed to be taking isosorbide metoprolol & amlodipine. She also c/o of feeling dizzy, congested cold and having 3 episodes of loose stools. She denied having fever, chills, chest pain, a change in her chronic back pain, and a change in her chronic cough. Jennifer discussed the case with Dr. Lacy who recommended starting Losartan. HOSPITAL COURSE: BP remained elevated intermittently, mostly with activity, during the first several days. Medications, including losartan and amlodipine, were both increased. She had one episode of facial numbness and tingling with elevated BP of 170, resolved with medications. Initial C head: 1. No acute intracranial abnormality. 2. Atrophy and chronic deep white matter ischemic changes. CTA chest identified a nodule at the right lung base measuring 4 mm which is stable since 06/29/2017. MRA brain without contrast showed: 1. There is severely decre ased flow and possible occlusion of the V4 segment of the left vertebral artery. This is new compared to the prior study. 2. Mild stenosis of the cavernous left internal carotid artery. 3. 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 MRA neck without contrast also showed 1. Flow is poorly visualized in the region of the proximal left external carotid artery, consistent with severe stenosis or occlusion. 2. There is moderate to severe stenosis of the proximal left subclavian artery. 3. 50% stenosis of the proximal right internal carotid artery. 4. Approximately 65% stenosis of the proximal left internal carotid artery. 5. Moderate stenosis of the proximal right external carotid artery. 6. Mild stenosis of the V1 segment of the left vertebral artery. Artifact limits evaluation of this segment. 7. Flow voids are identified involving left V3 and proximal V4 segments of the left vertebral artery. This is likely artifactual. Artifact also limits evaluation of right V3 and proximal V4 segments. Vascular surgery (Dr. Chaudhari) was consulted to evaluate areas of stenosis. She followed up on two US carotid 10/14/19 and determined that there is severe stenosis was at the origin of the L ECA, not ICA. Based on velocities, the L ICA is mildly stenotic. approx 50-55% stenosis. The R ICA stenosis is <50% based on velocities. Both vertebral are antegrade and no signs of distal obstruction noted based on waveforms. There was not need for surgical intervention per discussion. She would like to follow up in office in 6 months for repeat imagi ng. By 10/16/19, although the patient was much improved and cleared PT/OT, with her history of dizziness it was encouraged to use a walker for intermittent impaired balance. She had no new neurological issues with high blood pressure. Blood pressure was controlled. She was discharged home without complaints of chest pain, n/v/d, shortness of breath. PAST MEDICAL/ SURGICAL HISTORY: Chronic HTN hx of TIA Chronic CAD w mid LAD, L Cx and proximal RCA lesions Dyslipidemia COPD Osteopenia Hx of Takatsubo confirmed w angiogram in 2018 (repeat Echo showed EF recovered from 35% to 65% in 2018) Chronic back pain s/p laminectomy GERD w hiatal hernia Hx of Breast cancer tx w lumpectomy and radiation in 2009, declined adjuvant aromatase inhibitor Cholecystectomy Bilateral Knee arthroplasty Repair of deviated septum SOCIAL HISTORY: Former smoker (> 60 pack yr habit) / doesnt drink FAMILY HISTORY: Cancer / Alcoholism ALLERGIES: Please see below. HOME MEDICATIONS: Please see below. PHYSICAL EXAMINATION: VITAL SIGNS: Please see below. GENERAL APPEARANCE: NAD, resting in bed HEENT: EOMI , PERRLA, moist oral mucosa CARDIOVASCULAR: S1S2 +, no MRG CHEST: pain on palpation of anterior chest wall, no erythema or swelling noted LUNGS: CTAB, no wheezing/rhonchi or rales ABDOMEN: flat, soft, nontender, nondistended, BS + in 4 quad MUSCULOSKELETAL: IRAM x 4 extremities INTEGUMENT: Upper ext bruises, not new and unchanged. Nontender, no erythema NEUROLOGICAL: CN 2-12 intact, speech not dysarthric, sensory and motor in tact PSYCHIATRIC: A&Ox 3, following all commands, pleasant LABORATORY DATA, IMAGING STUDIES, MICROBIOLOGY: Please see below. CT head: 1. No acute intracranial abnormality. 2. Atrophy and chronic deep white matter ischemic changes. CTA chest: No pulmonary embolism. Nodule at the right lung base measuring 4 mm which is stable since 06/29/2017. MRI brain: 1. No restricted diffusion within the brain to suggest an acute infarct. 2. There are scattered foci of FLAIR hyperintensity within the cerebral white matter. In a patient this age, this likely represents chronic small vessel ischemic disease. 3. Moderate atrophy. 4. There is an empty sella. MRA brain without contrast: 1. There is severely decreased flow and possible occlusion of the V4 segment of the left vertebral artery. This is new compared to the prior study. 2. Mild stenosis of the cavernous left internal carotid artery. 3. 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 There is no progression compared to the prior study. MRA neck without contrast: 1. Flow is poorly visualized in the region of the proximal left external carotid artery, consistent with severe stenosis or occlusion. 2. There is moderate to severe stenosis of the proximal left subclavian artery. 3. 50% stenosis of the proximal right internal carotid artery. 4. Approximately 65% stenosis of the proximal left internal carotid artery. 5. Moderate stenosis of the proximal right external carotid artery. 6. Mild stenosis of the V1 segment of the left vertebral artery. Artifact limits evaluation of this segment. 7. Flow voids are identified involving left V3 and proximal V4 segments of the left vertebral artery. This is likely artifactual. Artifact also limits evaluation of right V3 and proximal V4 segments. Flow-limiting pathology cannot be excluded. carotid 10/14/19 (repeat) and reviewed by Dr. Tilley: Severe stenosis was at the origin of the L ECA, not ICA. Based on velocities, the L ICA is mildly stenotic. approx 50-55% stenosis. The R ICA stenosis is <50% based on velocities. Both vertebral are antegrade and no signs of distal obstruction noted based on waveforms Renal US: See transcribed results Echocardiogram: See transcribed results ASSESSMENT: is an 83 yr old w a hx of HTN, TIA, Chronic CAD and HLD admitted for evaluation of dizziness and management of uncontrolled blood pressure, mild COPD exacerbation, r/o TIA much improved and discharging home . PLAN: 1. Uncontrolled HTN likely cause of dizziness, ? TIA. BP better controlled over 24 hours. Discharging home with amlodipine 10 mg PO daily, losartan 25 mg PO daily, ASA, statin, plavix. Echo and imaging above. 2. Dizziness likely 2/2 uncontrolled BP, TIA. No longer orthostatic, no neuro symptoms. No suspecting carotid stenosis as cause, per vascular. C/w dual platelet therapy, statin with ezetimibe. Anxiety not likely component of this. 3. Impaired balance. Uses cane at home ; however, may need more support with ambulation per PT/OT. Rolling walker script given. 4. COPD with resolved exacerbation. C/w home regimen 5. Carotid stenosis. See US carotid above. Per vascular, would like to see the patient with a repeat carotid duplex in 6 months for surveillance. C/w plavix, ASA, statin, ezetimibe. 6. Chronic CAD w mid LAD, L Cx and proximal RCA lesions. No chest pain, cardiac complaints. C/w cardiac meds. 7. HLD. Last lipid panel in 2019 wnl. C/w atorvastatin, ezetmibe 8. Chronic back pain s/p laminectomy. Stable. C/w gabapentin 9. Pulmonary nodule. F/u with PCP and repeat imaging as indicated. DISPOSITION: BP better controlled. Patient to f/u with PCP within 1-2 weeks after discharge. Rolling walker script given to patient. TIME SPENT ON DISCHARGE: Greater than 35 minutes. Vital Signs/I&Os Vital Signs Date Time Temp Pulse Resp B/P (MAP) Pulse Ox O2 Delivery O2 Flow Rate FiO2 10/16/19 12:00 98.0 85 20 142/70 (94) 94 Room Air I&O- Last 24 Hours up to 6 AM 10/16/19 06:00 Intake Total 750 ml Output Total 800 ml Balance -50 ml Laboratory Data Labs 24H Laboratory Tests 2 10/16/19 04:30: Nucleated Red Blood Cells % (auto) 0.0, Anion Gap 4L, Glomerular Filtration Rate 56.0, Calcium Level 9.3, Total Bilirubin 0.3, Aspartate Amino Transf (AST/SGOT) 16, Alanine Aminotransferase (ALT/SGPT) 24, Alkaline Phosphatase 49, Total Protein 6.1L, Albumin 3.1L, Albumin/Globulin Ratio 1.0L CBC/BMP Laboratory Tests 10/16/19 04:30 Microbiology Microbiology 10/10/19 Urine Culture - Final, Complete Discharge Medications Scheduled Amlodipine Besylate (Amlodipine Besylate) 10 Mg Tablet, 10 MG PO DAILY Aspirin (Aspirin) 325 Mg Tablet, 325 MG PO DAILY Atorvastatin Calcium (Atorvastatin Calcium) 20 Mg Tablet, 40 MG PO DAILY Clopidogrel Bisulfate (Clopidogrel) 75 Mg Tablet, 75 MG PO DAILY Diphenhydramine HCl (Benadryl) 25 Mg Capsule, 50 MG PO QHS, (Reported) Ezetimibe (Ezetimibe) 10 Mg Tab, 10 MG PO QHS, (Reported) Gabapentin (Gabapentin) 300 Mg Capsule, 300 MG PO TID, (Reported) Losartan Potassium (Cozaar) 25 Mg Tablet, 25 MG PO DAILY Pantoprazole Sodium (Pantoprazole Sodium) 40 Mg Tablet.dr, 40 MG PO DAILY Scheduled PRN Acetaminophen (Acetaminophen) 500 Mg Tab, 1,000 MG PO Q6H PRN for PAIN, (Report ed) Albuterol Sulfate (Ventolin Hfa) 108 Mcg/Act Aer, 2 PUFFS INH QID PRN for S HORTNESS OF BREATH, (Reported) Bisacodyl (Dulcolax) 5 Mg Tab, 10 MG PO DAILY PRN for CONSTIPATION, (Reported) Carboxymethylcellulose Sodium (Refresh Tears) 0.5 % Julio, 1 DROP OU QID PRN for DRY EYES, (Reported) Fluticasone Propionate (Flonase Allergy Relief) 50 Mcg/Act Spr, 1 SPRAY NA BID PRN for NASAL CONGESTION, (Reported) Mometasone/Formoterol (Dulera 200 Mcg/5 Mcg Inhaler) 1 Aer Aer, 2 PUFFS INH BID PRN for SHORTNESS OF BREATH, (Reported) Polyethylene Glycol 3350 (Miralax) 17 Gm Powd.pack, 17 GM PO DAILY PRN for CONSTIPATION, (Reported) Allergies Coded Allergies: ENVIROMENTAL (Verified Allergy, Unknown, 07/06/07) letrozole (Unverified Adverse Reaction, Unknown, 10/10/19) Current Medications Current Medications Medications (Trade) Dose Ordered Sig/Kris Route PRN Reason Start Time Stop Time Status Last Admin Dose Admin Acetaminophen (Tylenol Tab) 650 mg Q4H PRN PO PAIN OR FEVER 10/10/19 22:30 10/16/19 13:39 DC 10/14/19 21:29 Albuterol Sulfate (Proventil Neb) 2.5 mg Q1HP PRN NEB SHORTNESS OF BREATH 10/11/19 00:45 10/15/19 09:38 DC Albuterol Sulfate (Proventil, Ventolin Hfa) 2 puff QID PRN INH SHORTNESS OF BREATH 10/15/19 09:45 10/16/19 13:39 DC Albuterol/ Ipratropium (Duoneb (Ipr 0.5mg/Alb 2.5mg)) 3 ml RQ6H NEB 10/11/19 02:00 10/15/19 09:38 DC 10/15/19 08:42 Amlodipine Besylate (Norvasc) 5 mg DAILY PO 10/14/19 04:40 10/14/19 14:46 DC 10/14/19 04:53 Amlodipine Besylate (Norvasc) 10 mg DAILY PO 10/15/19 09:00 10/16/19 13:39 DC 10/16/19 08:48 Aspirin (Aspirin) 325 mg DAILY PO 10/13/19 09:00 10/16/19 13:39 DC 10/16/19 08:49 Atorvastatin Calcium (Lipitor) 40 mg DAILY PO 10/13/19 09:00 10/16/19 13:39 DC 10/16/19 08:48 Bisacodyl (Dulcolax Tab) 10 mg DAILY PRN PO CONSTIPATION 10/11/19 00:45 10/16/19 13:39 DC 10/15/19 08:00 Budesonide/ Formoterol Fumarate (Symbicort 160/ 4.5mcg) 2 puff RBID INH 10/15/19 08:00 10/16/19 13:39 DC 10/16/19 08:27 Ceftriaxone Sodium 1 gm/ Dextrose 50 ml @ 100 mls/hr Q24H IV 10/11/19 09:00 10/12/19 08:06 DC 10/11/19 09:30 Clopidogrel Bisulfate (PLAVix) 75 mg DAILY PO 10/12/19 02:00 10/16/19 13:39 DC 10/16/19 08:48 Enoxaparin Sodium (Lovenox) 40 mg DAILY SC 10/11/19 09:00 10/12/19 13:52 DC 10/12/19 09:01 EZETIMIBE (Zetia) 10 mg QHS PO 10/11/19 21:00 10/16/19 13:39 DC 10/15/19 21:16 Fluticasone Propionate (Flonase 0.05% Nasal Conroy) 1 spray BID PRN NA NASAL CONGESTION 10/11/19 00:45 10/16/19 13:39 DC Gabapentin (Neurontin) 300 mg TID PO 10/11/19 09:00 10/16/19 13:39 DC 10/16/19 08:49 Home Med (Med Rec Complete!) ASDIRECTED XX 10/10/19 23:00 10/10/19 23:00 DC Losartan Potassium (Cozaar) 25 mg DAILY PO 10/11/19 09:00 10/13/19 08:08 DC 10/13/19 07:47 Losartan Potassium (Cozaar) 25 mg DAILY PO 10/14/19 09:00 10/16/19 13:39 DC 10/16/19 08:49 Losartan Potassium (Cozaar) 50 mg DAILY PO 10/13/19 09:00 10/13/19 08:17 DC Losartan Potassium (Cozaar) 50 mg DAILY PO 10/14/19 09:00 10/13/19 11:29 DC Magnesium Hydroxide (Milk Of Magnesia) 30 ml DAILY PRN PO CONSTIPATION 10/10/19 22:30 10/16/19 13:39 DC 10/15/19 07:59 Ondansetron HCl (Zofran Odt) 2 mg Q6HP PRN PO NAUSEA 10/11/19 03:15 10/16/19 13:39 DC 10/11/19 03:16 Pantoprazole Sodium (Protonix) 40 mg DAILY PO 10/11/19 06:00 10/16/19 13:39 DC 10/16/19 08:49 Polyethylene Glycol (Miralax) 1 pkt DAILY PRN PO CONSTIPATION 10/11/19 00:45 10/16/19 13:39 DC 10/14/19 21:28 Prednisone (Deltasone) 20 mg DAILY PO 10/13/19 09:00 10/13/19 17:57 DC 10/13/19 07:47 Prednisone (Deltasone) 40 mg DAILY PO 10/11/19 06:00 10/12/19 13:26 DC 10/12/19 09:00 Saliva Substitute (Mouthkote) Q1HP PRN MT Dry Mouth 10/14/19 11:15 10/16/19 13:39 DC 10/14/19 12:40 Sodium Chloride (Saline Lock Flush) 2 ml ASDIRECTED PRN IV SEE LABEL COMMENTS 10/12/19 19:00 10/16/19 13:39 DC Sodium Chloride (Saline Lock Flush) 2 ml SLF IV 10/12/19 22:00 10/16/19 13:39 DC 10/16/19 06:03 Jessy Johnson MD Oct 16, 2019 14:33
--- NOTE | 2019-10-17 13:43 | ECHO ---
DATE OF PROCEDURE: 10/14/2019 Age: 83 Gender: Female Height: 168 cm Weight: 65 kg REFERRING PHYSICIAN: Dr. Jessy Johnson INDICATION: Abnormal EKG. MEASUREMENTS: 2D Measurements: Interventricular septum 1.14 cm Posterior wall 0.96 cm Left ventricle diastole 4.1 cm Left atrium 2.5 cm Aortic annulus 1.7 cm Inferior vena cava 1.5 cm (more than 50% respiratory variation) Doppler Measurements: Mild aortic regurgitation No aortic stenosis Aortic valve velocity 129 cm/s LVOT velocity 116 cm/s LVOT VTI 20.8 cm No mitral regurgitation No mitral stenosis Mitral A velocity 80.6 cm/s Mitral deceleration time 180 msec No tricuspid regurgitation No pulmonic regurgitation Pulmonary acceleration time 79 msec MITRAL ANNULAR TISSUE DOPPLER E prime septal 7.6 cm/s, E prime lateral 8.6 cm/s DESCRIPTION: Rhythm was sinus. Image quality was fair. This was a 2D, M-mode, color flow Doppler, and pulsed wave Doppler examination including mitral annular tissue Doppler. CONCLUSIONS: 1. Normal left ventricle internal dimensions and wall thickness. Normal regional LV wall motion and wall thickening. Normal LV systolic function. LVEF 60% by visual estimate. Grade 1 LV diastolic dysfunction. 2. Mild aortic valve sclerosis of a 3-cuspid aortic valve. Mild aortic regurgitation. 3. Mild mitral annular calcification. No mitral regurgitation. 4. Abbreviated pulmonary acceleration time suggestive of moderate elevation of pulmonary artery systolic pressure. 5. Otherwise normal appearing echocardiogram Doppler findings. MTDD
--- NOTE | 2019-10-30 14:19 | ECGEPIP ---
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
--- NOTE | 2019-11-07 15:42 | ECGEPIP ---
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
--- NOTE | 2019-11-10 16:39 | REP ---
RENAL ULTRASOUND CLINICAL: Persistent hypertension. TECHNIQUE: Real-time bryant scale and color evaluation using curved array transducer. FINDINGS: The kidneys demonstrate mild atrophy along with increased central sinus fat suggesting chronic medical renal disease. No hydronephrosis, cystic, or renal mass lesion appreciated. Right kidney measures 9.7 x 4.4 x 3.4 cm. Left kidney measures 8.7 x 4.7 x 5.2 cm. The bladder is normal and bilateral ureteral jets are identified. IMPRESSION: Findings suggesting chronic medical renal disease. No hydronephrosis. MTDD
== END 2019-10-16 13:36 | disposition home health service (06) | DRG 305 ==
LOC: M ED 15:36 → EDBD 15:36 → M ED INP 22:21 → ENRESERV 10-11 13:50 → M PCU 10-11 15:23
PROVIDERS: ADMIT Internal Medicine; ATTEND Internal Medicine
DX: I16.0 Hypertensive urgency (principal); J44.1 Chronic obstructive pulmonary disease with (acute) exacerbation; Z86.73 Personal history of transient ischemic attack (TIA), and cerebral infarction without residual deficits; I25.10 Atherosclerotic heart disease of native coronary artery without angina pectoris; M54.5 Low back pain; Z79.899 Other long term (current) drug therapy; Z88.8 Allergy status to other drugs, medicaments and biological substances; K21.9 Gastro-esophageal reflux disease without esophagitis; K44.9 Diaphragmatic hernia without obstruction or gangrene; Z85.3 Personal history of malignant neoplasm of breast; Z96.651 Presence of right artificial knee joint; Z96.652 Presence of left artificial knee joint; I65.23 Occlusion and stenosis of bilateral carotid arteries; R91.8 Other nonspecific abnormal finding of lung field

== ENCOUNTER 2020-01-28 16:24 | Emergency (ER) | payer MEDICARE, BC, OTHER ==
[~2020-01-28] VITALS: Ht 165.1 cm; Wt 63.6 kg
[~2020-01-28 16:24] MED LIST changes: +AMLO1TAB25 PO; +ASPI-1 PO; +ATOR1TAB21 PO; +COZA1TAB PO; +GABA-843 PO; +MIRA1POW3 PO; +PANT40TA29 PO
[2020-01-28] MEDS ORDERED: ONDANSETRON 4 MG ORAL DISINTEGRATING TAB PO ONE (16:45)
[2020-01-28] MEDS ORDERED: GI COCKTAIL 50ML BTL(HYOSCYAMINE/MAALOX/LIDOCAINE VISCOUS)(1:3:1) PO ONE (16:45)
[2020-01-28 17:05] LABS: BASO # 0.1 10^3/uL (0.0-0.2); BASO % 1.3 % (0.0-1.0); EOS # 0.3 10^3/uL (0.0-0.5); EOS % 5.3 % (0.0-3.0); HEMATOCRIT 34.3 % (36.0-47.0); HEMOGLOBIN 11.1 g/dl (12.0-15.5); LYMPH # 1.4 10^3/uL (1.5-5.0); LYMPH % 24.6 % (24.0-44.0); MEAN CORPUSCULAR HEMOGLOBIN 31.1 pg (27.0-33.0); MEAN CORPUSCULAR HGB CONC 32.4 g/dl (32.0-36.5); MEAN CORPUSCULAR VOLUME 96.1 fl (80.0-96.0); MONO # 0.4 10^3/uL (0.0-0.8); MONO % 7.8 % (0.0-5.0); NEUTROPHILS # 3.3 10^3/uL (1.5-8.5); NEUTROPHILS % 60.1 % (36.0-66.0); PLATELET COUNT, AUTOMATED 203 10^3/uL (150-450); RED BLOOD COUNT 3.57 10^6/uL (4.00-5.40); WHITE BLOOD COUNT 5.5 10^3/uL (4.0-10.0)
[2020-01-28 17:29] LABS: ALBUMIN 3.4 GM/DL (3.2-5.2); ALT/SGPT 21 U/L (12-78); BILIRUBIN,DIRECT < 0.1 MG/DL (0.0-0.2); BILIRUBIN,TOTAL 0.3 MG/DL (0.2-1.0); BLOOD UREA NITROGEN 15 MG/DL (7-18); CALCIUM LEVEL 8.7 MG/DL (8.8-10.2); CARBON DIOXIDE LEVEL 28 MEQ/L (21-32); CHLORIDE LEVEL 106 MEQ/L (98-107); CK-MB VALUE MASS < 1.0 NG/ML (<3.6); CPK CREATINE PHOSPHOKINASE 71 U/L (26-192); CREATININE FOR GFR 0.91 MG/DL (0.55-1.30); GLOMERULAR FILTRATION RATE > 60.0 (>32); GLUCOSE, FASTING 94 MG/DL (70-100); LIPASE 155 U/L (73-393); MB/CK RELATIVE INDEX 1.41 (< OR =4); POTASSIUM SERUM 4.3 MEQ/L (3.5-5.1); SODIUM LEVEL 139 MEQ/L (136-145); TOTAL PROTEIN 6.5 GM/DL (6.4-8.2); TROPONIN I < 0.02 NG/ML (< 0.10)
[2020-01-28] MEDS ORDERED: SUCR1TA PO (17:39)
[2020-01-28 17:45] VITALS: BP 159/63
[2020-01-28] MEDS ORDERED: PANTOPRAZOLE 40MG TAB (PROTONIX) PO ONE (17:45)
--- NOTE | 2020-01-28 18:15 | ECGEPIP ---
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
== END 2020-01-28 18:42 | disposition home or self-care (01) ==
LOC: EDBD 16:24 → M ED 16:24
DX: K29.50 Unspecified chronic gastritis without bleeding (principal); R00.1 Bradycardia, unspecified; K21.9 Gastro-esophageal reflux disease without esophagitis; J30.89 Other allergic rhinitis; Z87.39 Personal history of other diseases of the musculoskeletal system and connective tissue; Z98.61 Coronary angioplasty status; Z87.891 Personal history of nicotine dependence; Z79.82 Long term (current) use of aspirin; Z79.899 Other long term (current) drug therapy; Z88.8 Allergy status to other drugs, medicaments and biological substances
CPT/HCPCS: 36415; 80048; 80076; 82550; 82553; 83690; 84484; 85025; 93005; 93041; 94760; 99285; Q0162

== ENCOUNTER → 2020-02-07 | Outpatient (CLI) | payer MEDICARE, BC, OTHER ==
[~2020-02-07] MED LIST changes: +GASTROGRAFIN SOLUTION 30ML (Q9963) As Ordered ONE; +ISOVUE-370 76% 100ML VIAL As Ordered ONE; +SUCR1TA PO
--- NOTE | 2020-02-07 14:33 | REP ---
INDICATION: PAIN OF UPPER ABD. COMPARISON: None. TECHNIQUE: Axial contrast-enhanced images of the abdomen using oral and 100 cc Isovue 370 intravenous contrast material with coronal and sagittal reformations. Coronal and sagittal reformations obtained. This CT examination was performed using the following dose reduction techniques: Automated exposure control, adjustment of mA and/or kv according to the patient's size, and use of iterative reconstruction technique. FINDINGS: Lung bases demonstrate chronic age-related changes. Liver includes subcentimeter hypodensity in the medial left lobe likely cyst. Evidence for prior cholecystectomy with compensatory biliary ductal dilatation noted. Spleen, pancreas, bilateral adrenal glands and kidneys are normal. Stomach and visualized portions of the small and large bowel are unremarkable. Atherosclerotic changes to the aorta and vasculature noted. Musculoskeletal structures demonstrate osteopenia and degenerative changes with sagittal views suggesting compression deformities at L3 and L4 of indeterminate age. IMPRESSION: 1. Chronic appearing changes. No obvious acute abdominal pathology noted. 2. Mild to moderate compression deformities at L3 and L4 of indeterminate age warrant physical correlation. <Electronically signed by Kareem Campoverde > 02/07/20 [id number]
== END ==
LOC: M RAD 12:21
PROVIDERS: ATTEND Internal Medicine
DX: R10.10 Upper abdominal pain, unspecified (principal)
CPT/HCPCS: 74160; Q9963; Q9967

== ENCOUNTER → 2020-02-28 | Outpatient (REF) | payer MEDICARE, OTHER ==
[~2020-02-28] MED LIST changes: +GABA-282 PO; -GABA-843 PO; -GASTROGRAFIN SOLUTION 30ML (Q9963) As Ordered ONE; -ISOVUE-370 76% 100ML VIAL As Ordered ONE
[2020-02-28 14:00] LABS: HEMATOCRIT 37.6 % (36.0-47.0); MEAN CORPUSCULAR HEMOGLOBIN 31.2 pg (27.0-33.0); MEAN CORPUSCULAR HGB CONC 31.9 g/dl (32.0-36.5); MEAN CORPUSCULAR VOLUME 97.7 fl (80.0-96.0); PLATELET COUNT, AUTOMATED 205 10^3/uL (150-450); RED BLOOD COUNT 3.85 10^6/uL (4.00-5.40); WHITE BLOOD COUNT 4.7 10^3/uL (4.0-10.0)
[2020-02-28 14:55] LABS: ALBUMIN 4.1 GM/DL (3.2-5.2); BILIRUBIN,TOTAL 0.7 MG/DL (0.2-1.0); CALCIUM LEVEL 10.3 MG/DL (8.8-10.2); CHOLESTEROL RISK RATIO 1.876 (<5); CREATININE FOR GFR 0.97 MG/DL (0.55-1.30); GLOMERULAR FILTRATION RATE 58.5 (>32); MAGNESIUM LEVEL 2.4 MG/DL (1.8-2.4); POTASSIUM SERUM 4.6 MEQ/L (3.5-5.1); TOTAL PROTEIN 7.5 GM/DL (6.4-8.2)
== END ==
LOC: M SFHCPLAZ 10:11
PROVIDERS: ATTEND Internal Medicine
DX: E78.00 Pure hypercholesterolemia, unspecified (principal); I10 Essential (primary) hypertension; M85.80 Other specified disorders of bone density and structure, unspecified site; Z85.3 Personal history of malignant neoplasm of breast
CPT/HCPCS: 36415; 80053; 80061; 82306; 83735; 85027; 93005; G0463

== ENCOUNTER → 2020-05-01 | Outpatient (REF) | payer MEDICARE, OTHER ==
[2020-05-02 12:01] LABS: APPEARANCE, URINE HAZY (CLEAR); BACTERIA, URINE AUTO NEGATIVE (NEGATIVE); BILIRUBIN, URINE AUTO NEGATIVE (NEGATIVE); BLOOD, URINE BLOOD NEGATIVE (NEGATIVE); COLOR, URINE YELLOW (YELLOW); GLUCOSE, URINE (UA) AUTO NEGATIVE (NEGATIVE); KETONE, URINE AUTO TRACE mg/dL (NEGATIVE); LEUKOCYTE ESTERASE, URINE AUTO 2+ (NEGATIVE); MUCUS, URINE SMALL (NEGATIVE); NITRITE, URINE AUTO NEGATIVE (NEGATIVE); PROTEIN, URINE AUTO NEGATIVE (NEGATIVE); RBC, URINE AUTO 2 /HPF (0-3); SPECIFIC GRAVITY URINE AUTO 1.023 (1.002-1.035); SQUAMOUS EPITHELIAL CELL UR AU 1 /HPF (0-6); UROBILINOGEN, URINE AUTO 0.2 mg/dL (0.0-2.0); WBC, URINE AUTO 22 /HPF (0-3)
== END ==
LOC: M SFHCPLAZ 11:41
PROVIDERS: ATTEND Internal Medicine
DX: R30.0 Dysuria (principal)

== ENCOUNTER 2020-07-06 23:38 | Inpatient (IN) | payer MEDICARE, OTHER ==
[~2020-07-06] VITALS: Ht 165.1 cm; Wt 66.9 kg
[2020-07-07] VITALS (7 sets, daily range): BP systolic 115–190; BP diastolic 58–88; PULSE 74
[2020-07-07 00:17] LABS: BASO # 0.1 10^3/uL (0.0-0.2); BASO % 1.1 % (0.0-1.0); EOS # 0.1 10^3/uL (0.0-0.5); EOS % 2.1 % (0.0-3.0); HEMATOCRIT 34.3 % (36.0-47.0); HEMOGLOBIN 11.3 g/dl (12.0-15.5); LYMPH # 1.6 10^3/uL (1.5-5.0); LYMPH % 30.6 % (24.0-44.0); MEAN CORPUSCULAR HEMOGLOBIN 31.5 pg (27.0-33.0); MEAN CORPUSCULAR HGB CONC 32.9 g/dl (32.0-36.5); MEAN CORPUSCULAR VOLUME 95.5 fl (80.0-96.0); MONO # 0.5 10^3/uL (0.0-0.8); MONO % 8.5 % (2.0-8.0); NEUTROPHILS % 56.9 % (36.0-66.0); PLATELET COUNT, AUTOMATED 197 10^3/uL (150-450); RED BLOOD COUNT 3.59 10^6/uL (4.00-5.40); WHITE BLOOD COUNT 5.3 10^3/uL (4.0-10.0)
[2020-07-07 00:21] LABS: INR 0.93; PROTHROMBIN TIME 12.7 SECONDS (12.5-14.3)
[2020-07-07 00:22] LABS: PARTIAL THROMBOPLASTIN TIME 24.1 SECONDS (24.2-38.5)
[2020-07-07 00:41] LABS: ALBUMIN 3.9 GM/DL (3.2-5.2); ALT/SGPT 22 U/L (12-78); BILIRUBIN,DIRECT 0.1 MG/DL (0.0-0.2); BILIRUBIN,TOTAL 0.4 MG/DL (0.2-1.0); BLOOD UREA NITROGEN 14 MG/DL (7-18); CALCIUM LEVEL 9.5 MG/DL (8.8-10.2); CARBON DIOXIDE LEVEL 30 MEQ/L (21-32); CHLORIDE LEVEL 106 MEQ/L (98-107); CK-MB VALUE MASS < 1.0 NG/ML (<3.6); CPK CREATINE PHOSPHOKINASE 93 U/L (26-192); CREATININE FOR GFR 0.95 MG/DL (0.55-1.30); GLUCOSE, FASTING 99 MG/DL (70-100); MB/CK RELATIVE INDEX 1.08 (< OR =4); NT-PRO BNP 645 PG/ML (<450); POTASSIUM SERUM 3.6 MEQ/L (3.5-5.1); SODIUM LEVEL 142 MEQ/L (136-145); TOTAL PROTEIN 7.2 GM/DL (6.4-8.2); TROPONIN I < 0.02 NG/ML (< 0.10)
--- NOTE | 2020-07-07 01:34 | REPVR ---
PROCEDURE INFORMATION: Exam: XR Chest Exam date and time: 07/06/2020 12:14 AM Age: 84 years old Clinical indication: Chest pain TECHNIQUE: Imaging protocol: XR of the chest. Views: 1 view. COMPARISON: CT ANGIO CHEST 10/10/2019 5:57 PM FINDINGS: Lungs: There is bibasilar atelectasis. No lung consolidation or pulmonary edema is noted. There are emphysematous changes in the lungs, which are better appreciated in the CTA chest on 10/10/2019. Pleural spaces: Unremarkable. No pleural effusion. No pneumothorax. Heart/Mediastinum: Unremarkable. No cardiomegaly. Vasculature: There are atherosclerotic calcifications of the aortic arch. Bones/joints: There are old healed fracture deformities of the left anterior 4th, 5th, and 6th ribs. There is a mild dextroscoliosis of the thoracic spine. IMPRESSION: 1. No radiographic evidence for an acute cardiopulmonary process. 2. Emphysematous changes. Electronically signed by: Srinivasa Pepper On 07/07/2020 01:34:46 AM
[2020-07-07] MEDS ORDERED: NITROGLYCERIN 0.4 MG SUBL TABLET SL STA (02:12)
[2020-07-07] MEDS ORDERED: NITROGLYCERIN 2% OINT 1 GM *U/D* PKT TOP ONE (02:15)
[2020-07-07] MEDS ORDERED: ACETAMINOPHEN TAB 650MG DOSE (2X325MG) PO ONE (02:15)
[2020-07-07] MEDS ORDERED: NITROGLYCERIN/D5W 100MCG/ML 25 MG in IV 1 EA IV SCH (02:30)
[2020-07-07] MEDS ORDERED: ASPI81TA26 PO (02:32)
[2020-07-07] MEDS ORDERED: AMLO1TAB24 PO (02:32)
[2020-07-07] MEDS ORDERED: ATOR1TAB21 PO (02:32)
[2020-07-07] MEDS ORDERED: CLOP75TA2 PO (02:32)
[2020-07-07] MEDS ORDERED: CHLO125TA PO (02:32)
[2020-07-07 03:07] LABS: RSV AMPLIFICATION NEGATIVE (NEGATIVE)
[2020-07-07 03:13] LABS: CK-MB VALUE MASS 1.1 NG/ML (<3.6); MB/CK RELATIVE INDEX 1.16 (< OR =4); TROPONIN I 0.02 NG/ML (< 0.10)
--- NOTE | 2020-07-07 04:31 | HPEPDOC ---
[facility] Medical History & Physical Date of Admission July 07, 2020 Date of Service: July 07, 2020 Primary Care Physician: Olegario Kenney Attending Physician: BERT CARRASCO MD History and Physical CHIEF COMPLAINT: Generalized weakness, chest pain HISTORY OF PRESENT ILLNESS: This is an 83-year-old male with a past medical history of uncontrolled hypertension(noncompliant with medication), history of TIA, coronary artery disease, hyperlipidemia, breast cancer status post lumpectomy, GERD with hiatal hernia who presented to the [facility] today with a chief complaint of "generally not feeling well", weakness and chest pain for the last 2 days. The patient lives alone and states that she takes her blood pressure regularly and if she notices a higher value only then w ill she take her medications reason being that she does not feel well with taking any kind of oral medications so generally tries to avoid. Patient also came in with some epigastric discomfort/ chest pain, but the time when I saw her she completely denied having any chest pain at all. Patient is not a very good historian and keeps information to herself. In the ED patient was found to have a blood pressure of 175/78 and immediately treated as a hypertensive emergency. -Patient received 1 dose of nitroglycerin sublingually, acetaminophen 650 mg and was started on a nitroglycerin drip IV running at 250 mL. Patient denies any shortness of breath, orthopnea, PND, muscle weakness on either side, slurring of speech, drooping of fluids, vision changes, loss of bowel and bladder control. Patient will be admitted to the ICU due to the concern for this being hypertensive emergency even though the patient completely denies having chest pain now. Patient has had a history of similar symptoms in September 2019 when she was admitted at [facility] for similar complaints. PAST MEDICAL HISTORY: 1. Essential uncontrolled hypertension. 2. History of TIA. 3. Chronic coronary artery disease with mid left anterior descending artery left circumflex and proximal right coronary artery lesions. 4. Dyslipidemia 5. Osteopenia 6. GERD with hiatal hernia 7. Chronic back pain status post laminectomy 8. History of breast cancer status post lumpectomy PAST SURGICAL HISTORY: 1. Cholecystectomy. 2. Bilateral knee arthroplasty. 3. And repair of a deviated nasal septum. SOCIAL HISTORY: Marital status: . Tobacco use: Former smoker more than 60 pack a year ETOH: Occasional Illicit drug use: Denies Tattoos done unprofessionally: No. IV drug use: Denies Other relevant social factors: No FAMILY HISTORY: Mother: Breast cancer Hereditary Diseases: Breast cancer Unexpected deaths due to medical reasons: None ALLERGIES: Please see below. REVIEW OF SYSTEMS: CONSTITUTIONAL: No unintentional weight loss, chills, fever, night sweats. HEENT: No sore throat, eye pain earache, lumps and bumps. CARDIOVASCULAR: No orthopnea, PND. RESPIRATORY: No cough, shortness of breath. GASTROINTESTINAL: No diarrhea or constipation. GENITOURINARY: No dysuria, polyuria. SKIN: No increased bleeding or bruising. MUSCULOSKELETAL: Reports joint pains. No joint stiffness. NEUROLOGICAL: Denies weakness, numbness, paresthesias. PSYCHIATRIC: No depression or anxiety. ENDOCRINE: No polyuria or polydipsia polyphagia. HEMATOLOGIC/LYMPHATIC: No lumps or bumps. HOME MEDICATIONS: Please see below. PHYSICAL EXAMINATION: VITAL SIGNS: Temperature 97.2 , pulse 69, respiratory rate 18, blood pressure 175/78, pulse oximetry 98 % on room air. GENERAL APPEARANCE: Patient feels weak, however looks nontoxic and not in any acute distress. HEENT: Atraumatic normocephalic, moist mucous membranes, no scleral icterus, no conjunctival pallor. PERRLA EOMI. CARDIOVASCULAR: Rate normal rhythm regular, S1 and S2 heard, no murmurs appreciated. LUNGS: Clear to auscultation bilaterally no wheezing. However the basilar crackles heard. ABDOMEN: Nondistended, however tender to deep palpation in all quadrants., Very hyperactive bowel sounds, no abdominal bruits MUSCULOSKELETAL: Normal movement at all joints. No deformities. EXTREMITIES: Good volume pulses, 1+ pedal edema. NEUROLOGICAL:. 5/ 5 motor strength, sensations intact. PSYCHIATRIC: Normal mood and affect. LABORATORY DATA: See below. IMAGING: Chest x-ray shows1. No radiographic evidence for an acute cardiopulmonary process. 2. Emphysematous changes MICROBIOLOGY: Please see below. ASSESSMENT AND PLAN: #Hypertensive emergency secondary to noncompliance of antihypertensive medications: -Patient was admitted to the ICU with continuous monitoring of vitals. Patient continues to be on IV nitroglycerin drip. So far her blood pressure has gone down to 145/80. -A cardiac marker panel, BMP, CBC, pro-BNP, EKG was ordered showing just a mild increase in proBNP and low hemoglobin depicting microcytic anemia. -Patient's home antihypertensive medications were resumed. -Oxygen therapy orders were put in. Currently the patient is saturating at 96% on room air. #History of grade 1 congestive heart failure secondary to hypertension: -Patient's proBNP is mildly elevated in 600s -Patient has no bilateral leg swelling. -Continue with chlorthalidone from home medication. -Monitor I's and O's with daily weight checks -Fluid restriction to 1500 mL #Essential hypertension: -Continuing his home medications. -Low sodium diet #GERD: -Start pantoprazole 20 mg twice a day. : Coronary artery disease with mild LAD, left circumflex and proximal right coronary artery lesion: -Continue the patient on her baby aspirin and statin #Microcytic Anemia secondary to iron deficiency most likely: -Ordering some iron studies. -Monitoring of H&H -Cause of anemia needs to be followed outpatient. #Chronic back pain status post laminectomy: -Patient has some acetaminophen ordered for pain control. #Osteopenia: -Patient is not on any vitamin D or calcium at home. -Needs to start vitamin D and calcium supplementation outpatient DVT prophylaxis: Subcutaneous heparin every 8 hours. GI prophylaxis: Patient is on 20 mg pantoprazole twice a day DISPOSITION: Pending improvement. Most likely 2 hospital days. Vital Signs Vital Signs Date Time Temp Pulse Resp B/P (MAP) Pulse Ox O2 Delivery O2 Flow Rate FiO2 07/07/20 02:53 145/78 07/06/20 23:52 97.2 69 18 98 Room Air Laboratory Data Labs 24H Laboratory Tests 2 07/06/20 23:57: Immature Granulocyte % (Auto) 0.8, Neutrophils (%) (Auto) 56.9, Lymphocytes (%) (Auto) 30.6, Monocytes (%) (Auto) 8.5H, Eosinophils (%) (Auto) 2.1, Basophils (%) (Auto) 1.1H, Neutrophils # (Auto) 3.0, Lymphocytes # (Auto) 1.6, Monocytes # (Auto) 0.5, Eosinophils # (Auto) 0.1, Basophils # (Auto) 0.1, Nucleated Red Blood Cells % (auto) 0.0, Prothrombin Time 12.7, Prothromb Time International Ratio 0.93, Activated Partial Thromboplast Time 24.1L, Anion Gap 6L, Glomerular Filtration Rate 60.0, Calcium Level 9.5, Magnesium Level 2.0, Total Bilirubin 0.4, Direct Bilirubin 0.1, Aspartate Amino Transf (AST/SGOT) 16, Alanine Aminotransferase (ALT/SGPT) 22, Alkaline Phosphatase 47, Total Creatine Kinase 93, Creatine Kinase MB < 1.0, Creatine Kinase MB Relative Index 1.08, Troponin I < 0.02, RI-Mnh-M-Type Natriuretic Peptide 645H, Total Protein 7.2, Albumin 3.9, Albumin/Globulin Ratio 1.2 07/07/20 02:21: Coronavirus (COVID-19)(PCR) NEGATIVE, Influenza Type A (RT-PCR) NEGATIVE, Influenza Type B (RT-PCR) NEGATIVE, Respiratory Syncytial Virus (PCR) NEGATIVE 07/07/20 02:32: Total Creatine Kinase 95, Creatine Kinase MB 1.1, Creatine Kinase MB Relative Index 1.16, Troponin I 0.02 07/07/20 02:51: Urine Color STRAW, Urine Appearance CLEAR, Urine pH 7.0, Urine Specific [place] 1.005, Urine Protein NEGATIVE, Urine Glucose (UA) NEGATIVE, Urine Ketones NEGATIVE, Urine Blood NEGATIVE, Urine Nitrite NEGATIVE, Urine Bilirubin NE GATIVE, Urine Urobilinogen 0.2, Urine Leukocyte Esterase NEGATIVE, Urine WBC (Auto) 0, Urine RBC (Auto) 1, Urine Hyaline Casts (Auto) 0, Urine Bacteria (Auto) NEGATIVE, Urine Squamous Epithelial Cells 0, Urine Sperm (Auto) CBC/BMP Laboratory Tests 07/06/20 23:57 Home Medications Scheduled Amlodipine Besylate (Amlodipine Besylate) 5 Mg Tablet, 5 MG PO DAILY Aspirin (Aspirin EC) 81 Mg Tablet.dr, 81 MG PO DAILY Atorvastatin Calcium (Atorvastatin Calcium) 20 Mg Tablet, 20 MG PO QPM Chlorthalidone (Chlorthalidone) 25 Mg Tablet, 12.5 MG PO 3XW mon,wed,fri Clopidogrel Bisulfate (Clopidogrel) 75 Mg Tablet, 75 MG PO DAILY Diphenhydramine HCl (Benadryl) 25 Mg Capsule, 50 MG PO QHS Allergies Coded Allergies: ENVIROMENTAL (Verified Allergy, Unknown, 07/06/20) letrozole (Unverified Adverse Reaction, Unknown, 07/06/20) A-FIB/CHADSVASC A-FIB History Current/History of A-Fib/PAF?: No Current PO Anticoag Therapy: No Age/Risk Factor Scoring CHADSVASC: CHADSVASC Response (Comments) Value Age Risk Factor Age >/= 75 years old 2 Gender Risk Factor Female 1 Hx of CHF Yes 1 Hx of HTN Yes 1 Hx of Stroke/TIA/or VTE Yes 2 Hx of Diabetes No 0 Hx of Vascular Disease No 0 Total 7 Treatment Treatment ordered: NONE (Pt should be on oral anticoagulation.) GME ATTESTATION GME ATTESTATION My faculty preceptor for this patient encounter was physically present during the encounter and was fully available. All aspects of the patient interview, examination, medical decision making process, and medical care plan development were reviewed and approved by the faculty preceptor. The faculty preceptor is aware and concurs with the plan as stated in the body of this note and will attest to such by his/her cosignature. ATTENDING NOTE time of service 305am is an 84 yr old w w a hx of HTN, TIA, COPD, Osteopenia, Chronic CAD DLP and chronic back pain who presented w malaise and chest pain (her trop and EKG were unremarkable. and will be admitted for management of HTN urgency (she doesnt have end-organ damage therefore she doesnt meet the criteria to diagnose HTN emergency); based on the previous H&P from Sep 2019 this has been a long standing issue. We will ask the day time team to consider contact and or consult to titrate her meds (the pt also reports episodes of dizziness and hypotension). rest per 's H&P Noemi Camargo MD July 07, 2020 04:04 BERT CARRASCO MD July 07, 2020 06:09
[2020-07-07 05:16] LABS: HEMATOCRIT 32.9 % (36.0-47.0); HEMOGLOBIN 10.9 g/dl (12.0-15.5); MEAN CORPUSCULAR HEMOGLOBIN 31.8 pg (27.0-33.0); MEAN CORPUSCULAR HGB CONC 33.1 g/dl (32.0-36.5); MEAN CORPUSCULAR VOLUME 95.9 fl (80.0-96.0); PLATELET COUNT, AUTOMATED 186 10^3/uL (150-450); RED BLOOD COUNT 3.43 10^6/uL (4.00-5.40); WHITE BLOOD COUNT 5.3 10^3/uL (4.0-10.0)
[2020-07-07 05:29] LABS: BLOOD UREA NITROGEN 13 MG/DL (7-18); CARBON DIOXIDE LEVEL 28 MEQ/L (21-32); CHLORIDE LEVEL 108 MEQ/L (98-107); CHOLESTEROL LEVEL 181 MG/DL (<200); CHOLESTEROL RISK RATIO 2.661 (<5); CREATININE FOR GFR 0.91 MG/DL (0.55-1.30); GLOMERULAR FILTRATION RATE > 60.0 (>32); GLUCOSE, FASTING 90 MG/DL (70-100); HDL CHOLESTEROL 68 MG/DL (>40); LDL CHOLESTEROL 94 MG/DL (<100); NON-HDL-C 113 MG/DL; POTASSIUM SERUM 3.9 MEQ/L (3.5-5.1); SODIUM LEVEL 141 MEQ/L (136-145); TRIGLYCERIDES LEVEL 95 MG/DL (<150)
[2020-07-07] MEDS: HEPARIN SOD (PORCINE) 5000UNITS/ML 1ML VIAL/SYRINGE SQ SCH ×3 (06:17→21:39)
[2020-07-07] MEDS: DICLOFENAC EPOLAMINE 1.3 % PATCH TOP SCH ×2 (06:19→17:08)
[2020-07-07 06:21] LABS: FERRITIN 70 NG/ML (8-252); IRON (FE) 93 UG/DL (50-170); TOTAL IRON BINDING CAPACITY 266 UG/DL (250-450)
[2020-07-07 07:53] LABS: CK-MB VALUE MASS < 1.0 NG/ML (<3.6); CPK CREATINE PHOSPHOKINASE 95 U/L (26-192); MB/CK RELATIVE INDEX 1.05 (< OR =4); TROPONIN I < 0.02 NG/ML (< 0.10)
--- NOTE | 2020-07-07 07:53 | ECGEPIP ---
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
[2020-07-07] MEDS: ASPIRIN 81MG ENTERIC TABLET PO SCH (08:07)
[2020-07-07] MEDS: CHLORTHALIDONE 12.5MG PER 1/2 TABLET PO SCH (08:07)
[2020-07-07] MEDS: CLOPIDOGREL 75 MG TAB PO SCH (08:07)
--- NOTE | 2020-07-07 08:50 | IPNPDOC ---
Text Note Date of Service The patient was seen on 07/07/20. NOTE Subjective: Patient is an 83-year-old female with a PMHx of HTN (reported non- compliance), Hx of TIA, CAD, DLP, Breast CA s/p Lumpectomy, GERD / Hiatal hernia who presented to [facility] after she felt unwell and complaint of chest pain for 2 days. In the emergency room, patient was found to have an elevated blood pressure in the 170s and was admitted to the hospital service for hypertensive emergency. Patient has had a history of similar symptoms in September 2019 when she was admitted at [facility] for similar complaints. Patient was seen and examined at the bedside. Patient currently denies any chest pain, shortness breath, palpitations, nausea, vomiting, abdominal pain, diarrhea, or urinary discomfort. Objective: Vitals (See below) General: Lying in bed, no acute distress, comfortable, AAOx3 HEENT: NC, AT CVS: +S1S2 Lungs: Fair air entry b/l, -w/r/r Abdomen: Soft, ND, NT Extremities: - Edema, - Calf tenderness Assessment and plan: Hypertension - s/p Hypertensive emergency - Patient is currently not experiencing any chest pain, shortness breath, palpitations or cough - Blood pressure appears better controlled this morning - Has not required a Nitroglycerin drip - Resumed chlorthalidone; increased dose of Amlodipine - c/w Low salt diet Diastolic CHF (Grade 1) - No signs of fluid overload - Strict ins/outs, daily weights, fluid restriction - c/w Chlorthalidone CAD - c/w ASA, Plavix and Atorvastatin - Will have outpatient follow-up with cardiology Normocytic Anemia - No signs of bleeding - Hg appears stable - Iron studies noted; B12/Folate pending Chronic back pain s/p laminectomy - c/w Tylenol PRN Osteopenia - Recommend following up with PCP for initiation of vitamin D and calcium supplementation GERD - Has been started on Protonix DVT prophylaxis - c/w Heparin Disposition: - Pending clinical improvement - Anticipate discharge home tomorrow VS,[place], I+O VS, [place], I+O Laboratory Tests 07/06/20 23:57 07/07/20 04:54 Vital Signs Date Time Temp Pulse Resp B/P (MAP) Pulse Ox O2 Delivery O2 Flow Rate FiO2 07/07/20 04:00 96.3 63 20 170/72 (104) 97 Room Air SOREN LOAIZA MD July 07, 2020 08:50
[2020-07-07] MEDS ORDERED: amLODIPine 5 MG TAB PO SCH (09:00)
[2020-07-07] MEDS ORDERED: LORazepam 2 MG/ML VIAL IV PRN (09:05)
[2020-07-07] MEDS ORDERED: LABETALOL 100MG/20ML VIAL IV STA (09:12)
[2020-07-07] MEDS ORDERED: amLODIPine 5 MG TAB PO ONE (09:20)
[2020-07-07 12:24] LABS: CK-MB VALUE MASS < 1.0 NG/ML (<3.6); CPK CREATINE PHOSPHOKINASE 90 U/L (26-192); MB/CK RELATIVE INDEX 1.11 (< OR =4); TROPONIN I < 0.02 NG/ML (< 0.10)
[2020-07-07] MEDS ORDERED: ATORVASTATIN 20 MG TAB PO SCH (18:00)
--- NOTE | 2020-07-07 20:59 | ECGEPIP ---
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
[2020-07-07] MEDS ORDERED: diphenhydrAMINE 25MG CAP PO SCH (21:00)
[2020-07-08] VITALS: BP 125/57
[2020-07-08 04:05] VITALS: BP 122/59
[2020-07-08] MEDS: HEPARIN SOD (PORCINE) 5000UNITS/ML 1ML VIAL/SYRINGE SQ SCH (06:12)
[2020-07-08] MEDS: DICLOFENAC EPOLAMINE 1.3 % PATCH TOP SCH (06:13)
[2020-07-08 06:28] LABS: ALBUMIN 3.5 GM/DL (3.2-5.2); BILIRUBIN,TOTAL 0.4 MG/DL (0.2-1.0); CALCIUM LEVEL 9.2 MG/DL (8.8-10.2); CREATININE FOR GFR 0.99 MG/DL (0.55-1.30); GLOMERULAR FILTRATION RATE 57.2 (>32); TOTAL PROTEIN 6.4 GM/DL (6.4-8.2)
[2020-07-08 08:00] VITALS: BP 142/71
[2020-07-08] MEDS ORDERED: AMLO1TAB25 PO (08:22)
[2020-07-08 08:41] VITALS: BP 142/71
[2020-07-08] MEDS: CHLORTHALIDONE 12.5MG PER 1/2 TABLET PO SCH (08:41)
[2020-07-08] MEDS: CLOPIDOGREL 75 MG TAB PO SCH (08:41)
[2020-07-08] MEDS: ASPIRIN 81MG ENTERIC TABLET PO SCH (08:41)
[2020-07-08] MEDS: ACETAMINOPHEN TAB 650MG DOSE (2X325MG) PO PRN ×2 (08:49→12:15)
--- NOTE | 2020-07-08 10:14 | DS.PDOC ---
Discharge Summary General Date of Admission July 07, 2020 at 02:55 Date of Discharge 07/08/2020 Discharge Summary PROCEDURES PERFORMED DURING STAY: [None]. ADMITTING DIAGNOSES / DISCHARGE DIAGNOSES: Hypertension Diastolic CHF (Grade 1) CAD Normocytic Anemia Chronic back pain s/p laminectomy Osteopenia GERD DVT prophylaxis COMPLICATIONS/CHIEF COMPLAINT: Chest pain / Elevated blood pressure HISTORY OF PRESENT ILLNESS: Patient is an 83-year-old female with a PMHx of HTN (reported non-compliance), Hx of TIA, CAD, DLP, Breast CA s/p Lumpectomy, GERD / Hiatal hernia who presented to [facility] after she felt unwell and complaint of chest pain for 2 days. In the emergency room, patient was found to have an elevated blood pressure in the 170s and was admitted to the [facility] for hypertensive emergency. Patient has had a history of similar symptoms in September 2019 when she was admitted at [facility] for similar complaints. Patient seen and examined at the bedside this morning. She denies any nausea, vomiting, chest pain, shortness breath, palpitations, abdominal pain consultation, diarrhea, or urinary discomfort. HOSPITAL COURSE: Hypertension - s/p Hypertensive emergency - Patient denies chest pain, shortness of breath or palpitations - Blood pressure remains well-controlled this morning - Has not required a Nitroglycerin drip - Resumed chlorthalidone; increased dose of Amlodipine - c/w Low salt diet - Will have outpatient follow-up with primary care provider, and cardiology within the next 7 days Diastolic CHF (Grade 1) - No signs of fluid overload - Strict ins/outs, daily weights, fluid restriction - c/w Chlorthalidone CAD - c/w ASA, Plavix and Atorvastatin - Will have outpatient follow-up with cardiology Normocytic Anemia - No signs of bleeding - Hg appears stable - Iron studies noted - Level outpatient follow-up with primary care provider Chronic back pain s/p laminectomy - c/w Tylenol PRN Osteopenia - Recommend following up with PCP for initiation of vitamin D and calcium supplementation GERD - c/w Protonix DVT prophylaxis - c/w Heparin DISCHARGE MEDICATIONS: Please see below. ALLERGIES: Please see below. PHYSICAL EXAMINATION ON DISCHARGE: Vitals (See below) General: Patient is sitting up in bed, appears to be comfortable, not in any acute distress, AAOx3 HEENT: NC, AT CVS: +S1S2 Lungs: Fair air entry b/l, no evidence of wheezing, rhonchi or rales Abdomen: Soft, nondistended, nontender Extremities: Lower extremities are without any pitting edema, - Calf tenderness LABORATORY DATA: Please see below. IMAGING: CXR 07/06: 1. No radiographic evidence for an acute cardiopulmonary process. 2. Emphysematous changes. ACTIVITY: [As tolerated]. DISCHARGE PLAN: Follow-up with primary care provider, and cardiology within the next 7 days Remain compliant with treatment plan and medications Return to the ER if you experience any problems DISPOSITION: Home with services DISCHARGE CONDITION: [Stable]. TIME SPENT ON DISCHARGE: 35 minutes. Vital Signs/I&Os Vital Signs Date Time Temp Pulse Resp B/P (MAP) Pulse Ox O2 Delivery O2 Flow Rate FiO2 07/08/20 08:41 73 142/71 07/08/20 08:00 97.0 17 97 Room Air I&O- Last 24 Hours up to 6 AM 07/08/20 05:59 Intake Total 740 ml Output Total 0 ml Balance 740 ml Laboratory Data Labs 24H Laboratory Tests 2 07/07/20 11:46: Total Creatine Kinase 90, Creatine Kinase MB < 1.0, Creatine Kinase MB Relative Index 1.11, Troponin I < 0.02 07/08/20 05:18: Anion Gap 5L, Glomerular Filtration Rate 57.2, Calcium Level 9.2, Total Bilirubin 0.4, Aspartate Amino Transf (AST/SGOT) 13, Alanine Aminotransferase (ALT/SGPT) 19, Alkaline Phosphatase 40L, Total Protein 6.4, Albumin 3.5, Albumin/Globulin Ratio 1.2 CBC/BMP Laboratory Tests 07/08/20 05:18 Discharge Medications Scheduled Amlodipine Besylate (Amlodipine Besylate) 10 Mg Tablet, 10 MG PO DAILY Aspirin (Aspirin EC) 81 Mg Tablet.dr, 81 MG PO DAILY, (Reported) Atorvastatin Calcium (Atorvastatin Calcium) 20 Mg Tablet, 20 MG PO QPM, (Reported) Chlorthalidone (Chlorthalidone) 25 Mg Tablet, 12.5 MG PO 3XW, (Reported) mon,wed,fri Clopidogrel Bisulfate (Clopidogrel) 75 Mg Tablet, 75 MG PO DAILY, (Reported) Diphenhydramine HCl (Benadryl) 25 Mg Capsule, 50 MG PO QHS, (Reported) Allergies Coded Allergies: ENVIROMENTAL (Verified Allergy, Unknown, 07/06/20) letrozole (Unverified Adverse Reaction, Unknown, 07/06/20) SOREN LOAIZA MD July 08, 2020 10:14
[2020-07-08] MEDS ORDERED: hydrOXYzine 25 MG TAB PO ONE (11:30)
[2020-07-08] MEDS ORDERED: HYDR-3363 PO (11:44)
== END 2020-07-08 13:45 | disposition home health service (06) | DRG 305 ==
LOC: M ED 23:38 → M ED INP 07-07 02:55 → ENRESERV 07-07 03:41 → M PCU 07-07 04:24
PROVIDERS: ADMIT Internal Medicine; ATTEND Internal Medicine
DX: I16.1 Hypertensive emergency (principal); I50.32 Chronic diastolic (congestive) heart failure; R53.1 Weakness; I11.0 Hypertensive heart disease with heart failure; I25.10 Atherosclerotic heart disease of native coronary artery without angina pectoris; D50.9 Iron deficiency anemia, unspecified; E78.5 Hyperlipidemia, unspecified; M85.88 Other specified disorders of bone density and structure, other site; K21.9 Gastro-esophageal reflux disease without esophagitis; K44.9 Diaphragmatic hernia without obstruction or gangrene; M54.9 Dorsalgia, unspecified; Z98.1 Arthrodesis status; Z85.3 Personal history of malignant neoplasm of breast; Z90.49 Acquired absence of other specified parts of digestive tract; Z96.653 Presence of artificial knee joint, bilateral; Z87.891 Personal history of nicotine dependence; Z79.899 Other long term (current) drug therapy; Z20.822 Contact with and (suspected) exposure to COVID-19; Z88.8 Allergy status to other drugs, medicaments and biological substances; Z91.14 Patient's other noncompliance with medication regimen; Z86.73 Personal history of transient ischemic attack (TIA), and cerebral infarction without residual deficits

== ENCOUNTER → 2020-08-05 | Outpatient (REF) | payer MEDICARE, OTHER ==
[~2020-08-05] MED LIST changes: +CHLO125TA PO; +HYDR-3363 PO; +OMEP40CA4; +OMEP40CA4 PO; -OMEP40CA97; -OMEP40CA97 PO
[2020-08-05 11:48] LABS: HEMATOCRIT 32.3 % (36.0-47.0); HEMOGLOBIN 10.9 g/dl (12.0-15.5); MEAN CORPUSCULAR HEMOGLOBIN 32.5 pg (27.0-33.0); MEAN CORPUSCULAR HGB CONC 33.7 g/dl (32.0-36.5); MEAN CORPUSCULAR VOLUME 96.4 fl (80.0-96.0); PLATELET COUNT, AUTOMATED 214 10^3/uL (150-450); RED BLOOD COUNT 3.35 10^6/uL (4.00-5.40); WHITE BLOOD COUNT 4.8 10^3/uL (4.0-10.0)
[2020-08-05 12:10] LABS: BILIRUBIN,TOTAL 0.4 MG/DL (0.2-1.0); CALCIUM LEVEL 9.5 MG/DL (8.8-10.2); CREATININE FOR GFR 0.99 MG/DL (0.55-1.30); GLOMERULAR FILTRATION RATE 57.2 (>32); MAGNESIUM LEVEL 2.2 MG/DL (1.8-2.4); POTASSIUM SERUM 4.3 MEQ/L (3.5-5.1)
[2020-08-05 13:53] LABS: TOTAL 25(OH) VITAMIN D 13.3 NG/ML (30.0-100.0)
== END ==
LOC: M SHH 10:31
PROVIDERS: ATTEND Internal Medicine
DX: I10 Essential (primary) hypertension (principal); E78.00 Pure hypercholesterolemia, unspecified; Z85.3 Personal history of malignant neoplasm of breast; M85.80 Other specified disorders of bone density and structure, unspecified site

== ENCOUNTER → 2020-12-09 | Outpatient (CLI) | payer MEDICARE, BC, OTHER ==
[~2020-12-09] MED LIST changes: -LISI2.5T2 PO; +LISI2.5T9 PO
[2020-12-09 13:44] LABS: BASO # 0.1 10^3/uL (0.0-0.2); BASO % 1.6 % (0.0-1.0); EOS # 0.1 10^3/uL (0.0-0.5); EOS % 2.4 % (0.0-3.0); HEMATOCRIT 32.6 % (36.0-47.0); HEMOGLOBIN 10.8 g/dl (12.0-15.5); LYMPH # 0.8 10^3/uL (1.5-5.0); MEAN CORPUSCULAR HEMOGLOBIN 31.7 pg (27.0-33.0); MEAN CORPUSCULAR HGB CONC 33.1 g/dl (32.0-36.5); MEAN CORPUSCULAR VOLUME 95.6 fl (80.0-96.0); MONO # 0.4 10^3/uL (0.0-0.8); MONO % 7.8 % (2.0-8.0); NEUTROPHILS # 3.6 10^3/uL (1.5-8.5); PLATELET COUNT, AUTOMATED 223 10^3/uL (150-450); RED BLOOD COUNT 3.41 10^6/uL (4.00-5.40)
[2020-12-09 14:38] LABS: ALBUMIN 3.7 GM/DL (3.2-5.2); BILIRUBIN,TOTAL 0.4 MG/DL (0.2-1.0); CALCIUM LEVEL 9.6 MG/DL (8.8-10.2); CREATININE FOR GFR 1.01 MG/DL (0.55-1.30); GLOMERULAR FILTRATION RATE 55.7 (>32); MAGNESIUM LEVEL 2.2 MG/DL (1.8-2.4); POTASSIUM SERUM 4.3 MEQ/L (3.5-5.1); TOTAL PROTEIN 6.9 GM/DL (6.4-8.2)
== END ==
LOC: M PLALAB 10:12
PROVIDERS: ATTEND Internal Medicine
DX: I10 Essential (primary) hypertension (principal); Z85.3 Personal history of malignant neoplasm of breast

== ENCOUNTER → 2021-04-07 | Outpatient (CLI) | payer MEDICARE, OTHER ==
[~2021-04-07] MED LIST changes: +ISOS20TA4 PO; -ISOS20TAB PO
[2021-04-07 17:33] LABS: BASO # 0.1 10^3/uL (0.0-0.2); EOS # 0.1 10^3/uL (0.0-0.5); EOS % 1.8 % (0.0-3.0); HEMATOCRIT 32.2 % (36.0-47.0); HEMOGLOBIN 10.3 g/dl (12.0-15.5); LYMPH # 1.3 10^3/uL (1.5-5.0); LYMPH % 20.2 % (24.0-44.0); MEAN CORPUSCULAR HEMOGLOBIN 30.2 pg (27.0-33.0); MEAN CORPUSCULAR VOLUME 94.4 fl (80.0-96.0); MONO # 0.5 10^3/uL (0.0-0.8); MONO % 8.5 % (2.0-8.0); NEUTROPHILS # 4.3 10^3/uL (1.5-8.5); NEUTROPHILS % 68.3 % (36.0-66.0); PLATELET COUNT, AUTOMATED 234 10^3/uL (150-450); RED BLOOD COUNT 3.41 10^6/uL (4.00-5.40); WHITE BLOOD COUNT 6.3 10^3/uL (4.0-10.0)
[2021-04-07 17:51] LABS: ALBUMIN 3.8 GM/DL (3.2-5.2); BILIRUBIN,TOTAL 0.6 MG/DL (0.2-1.0); CALCIUM LEVEL 9.3 MG/DL (8.8-10.2); CREATININE FOR GFR 1.23 MG/DL (0.55-1.30); GLOMERULAR FILTRATION RATE 44.4 (>32); MAGNESIUM LEVEL 2.2 MG/DL (1.8-2.4); POTASSIUM SERUM 4.4 MEQ/L (3.5-5.1); TOTAL PROTEIN 7.2 GM/DL (6.4-8.2)
[2021-04-08 10:09] LABS: FOLATE 9.5 NG/ML; PERCENT SATURATION 14.5 % (13.2-45.0)
== END ==
LOC: M PLALAB 16:00
PROVIDERS: ATTEND Internal Medicine
DX: I10 Essential (primary) hypertension (principal); Z85.3 Personal history of malignant neoplasm of breast

== ENCOUNTER → 2021-04-07 | Outpatient (REF) | payer MEDICARE, OTHER | LOC: M SFHCPLAZ 15:12 | PROVIDERS: ATTEND Internal Medicine | DX: I10 Essential (primary) hypertension (principal); Z85.3 Personal history of malignant neoplasm of breast ==

== ENCOUNTER → 2021-10-02 | Outpatient (CLI) | payer MEDICARE, OTHER ==
[~2021-10-02] MED LIST changes: +ALBU2.5V10 INH; -ALBU83IN INH
[2021-10-02 14:10] LABS: HEMATOCRIT 27.2 % (36.0-47.0); HEMOGLOBIN 8.7 g/dl (12.0-15.5); MEAN CORPUSCULAR HEMOGLOBIN 31.1 pg (27.0-33.0); MEAN CORPUSCULAR VOLUME 97.1 fl (80.0-96.0); PLATELET COUNT, AUTOMATED 284 10^3/uL (150-450); WHITE BLOOD COUNT 7.3 10^3/uL (4.0-10.0)
[2021-10-02 14:32] LABS: MALB URINE SIEMENS 18.5 MG/L; MAU/CREAT RATIO 17.4 MCG/MG (0.0-30.0)
[2021-10-02 14:40] LABS: BILIRUBIN,TOTAL 0.5 MG/DL (0.2-1.0); CALCIUM LEVEL 9.4 MG/DL (8.8-10.2); CREATININE FOR GFR 1.38 MG/DL (0.55-1.30); GLOMERULAR FILTRATION RATE 38.9 (>32); POTASSIUM SERUM 4.2 MEQ/L (3.5-5.1)
[2021-10-02 14:41] LABS: ALBUMIN 4.1 GM/DL (3.2-5.2); C REACTIVE PROTEIN QUANTITATIV 0.3 MG/DL (0.00-0.30); CHOLESTEROL RISK RATIO 1.867 (<5); THYROID STIMULATING HORMONE 1.42 uIU/ML (0.358-3.740); TOTAL PROTEIN 7.3 GM/DL (6.4-8.2)
[2021-10-02 14:48] LABS: HEMOGLOBIN A1c 5.5 %
[2021-10-02 15:22] LABS: TOTAL 25(OH) VITAMIN D 12.1 NG/ML (30.0-100.0)
== END ==
LOC: M PLALAB 11:17
PROVIDERS: ATTEND Internal Medicine Hematology
DX: I10 Essential (primary) hypertension (principal); I25.10 Atherosclerotic heart disease of native coronary artery without angina pectoris; Z79.899 Other long term (current) drug therapy

== ENCOUNTER 2021-11-05 18:25 | Inpatient (IN) | payer MEDICARE, OTHER ==
[~2021-11-05] VITALS: Ht 167.6 cm; Wt 69.5 kg
[~2021-11-05 18:25] MED LIST changes: -DULE200A; -DULE200A INH; +MOME13HF7; +MOME13HF7 INH
[2021-11-05] MEDS ORDERED: MORPHINE 4 MG/ML 1ML VIAL/SYRINGE IV ONE (20:15)
[2021-11-05 21:02] LABS: BASO # 0.1 10^3/uL (0.0-0.2); BASO % 0.5 % (0.0-1.0); EOS % 0.3 % (0.0-3.0); HEMATOCRIT 28.5 % (36.0-47.0); LYMPH # 0.7 10^3/uL (1.5-5.0); LYMPH % 5.3 % (24.0-44.0); MEAN CORPUSCULAR HEMOGLOBIN 30.4 pg (27.0-33.0); MEAN CORPUSCULAR HGB CONC 31.6 g/dl (32.0-36.5); MEAN CORPUSCULAR VOLUME 96.3 fl (80.0-96.0); MONO # 0.4 10^3/uL (0.0-0.8); MONO % 3.2 % (2.0-8.0); NEUTROPHILS # 11.1 10^3/uL (1.5-8.5); NEUTROPHILS % 90.1 % (36.0-66.0); PLATELET COUNT, AUTOMATED 212 10^3/uL (150-450); RED BLOOD COUNT 2.96 10^6/uL (4.00-5.40); WHITE BLOOD COUNT 12.4 10^3/uL (4.0-10.0)
[2021-11-05 21:34] LABS: CALCIUM LEVEL 9.3 MG/DL (8.8-10.2); CREATININE FOR GFR 1.15 MG/DL (0.55-1.30); POTASSIUM SERUM 3.7 MEQ/L (3.5-5.1)
[2021-11-05] MEDS ORDERED: ONDANSETRON 4MG 2ML VIAL IV ONE (21:40)
[2021-11-05] MEDS ORDERED: AMLO2.5T3 PO (23:19)
[2021-11-05] MEDS ORDERED: PARO5TAB PO (23:20)
[2021-11-05] MEDS ORDERED: VITA100093 PO (23:21)
[2021-11-05] MEDS ORDERED: HOME MED LIST COMPLETE! XX SCH (23:25)
[2021-11-06] VITALS (8 sets, daily range): BP systolic 136–141; BP diastolic 71–72; O2SAT 88–97
[2021-11-06] MEDS ORDERED: ACETAMINOPHEN TAB 650MG DOSE (2X325MG) PO PRN (00:50)
[2021-11-06] MEDS ORDERED: HYDROMORPHONE HCL 0.5 MG/ 0.5 ML SYRINGE (J1170 PER 1) IV PRN (00:50)
[2021-11-06 01:05] LABS: RSV AMPLIFICATION NEGATIVE (NEGATIVE)
[2021-11-06 07:30] LABS: HEMATOCRIT 27.2 % (36.0-47.0); HEMOGLOBIN 8.6 g/dl (12.0-15.5)
[2021-11-06 08:07] LABS: ALBUMIN 3.5 GM/DL (3.2-5.2); ALT/SGPT 125 U/L (12-78); BILIRUBIN,TOTAL 0.5 MG/DL (0.2-1.0); BLOOD UREA NITROGEN 22 MG/DL (7-18); CALCIUM LEVEL 9.3 MG/DL (8.8-10.2); CARBON DIOXIDE LEVEL 27 MEQ/L (21-32); CHLORIDE LEVEL 101 MEQ/L (98-107); CREATININE FOR GFR 1.23 MG/DL (0.55-1.30); GLOMERULAR FILTRATION RATE 44.4 (>32); GLUCOSE, FASTING 125 MG/DL (70-100); POTASSIUM SERUM 4.2 MEQ/L (3.5-5.1); SODIUM LEVEL 133 MEQ/L (136-145); TOTAL PROTEIN 6.9 GM/DL (6.4-8.2)
[2021-11-06] MEDS: ASPIRIN 81MG ENTERIC TABLET PO SCH (08:12)
[2021-11-06] MEDS: DOCUSATE SODIUM 100MG CAPSULE PO SCH ×2 (08:12→20:29)
[2021-11-06] MEDS: NORCO, ANEXSIA 5/325MG TABLET (HYDROcodone/ACETAMINOPHEN) PO PRN ×2 (08:13→17:38)
[2021-11-06] MEDS: VITAMIN D 1,000 INTERNATIONAL UNITS TABLET PO SCH (08:13)
[2021-11-06] MEDS: ATORVASTATIN 20 MG TAB PO SCH (08:13)
[2021-11-06] MEDS: HEPARIN SOD (PORCINE) 5000UNITS/ML 1ML VIAL/SYRINGE SC SCH ×2 (08:14→20:29)
[2021-11-06] MEDS: NS 1,000 ML IV SCH ×2 (10:22→20:29)
[2021-11-06 11:26] LABS: HEPATITIS B SURFACE ANTIGEN NEGATIVE (NEGATIVE)
[2021-11-06 11:34] LABS: BASO % 0.1 % (0.0-1.0); LYMPH # 0.8 10^3/uL (1.5-5.0); MEAN CORPUSCULAR HEMOGLOBIN 30.9 pg (27.0-33.0); MEAN CORPUSCULAR HGB CONC 31.5 g/dl (32.0-36.5); MEAN CORPUSCULAR VOLUME 98.2 fl (80.0-96.0); MONO # 0.6 10^3/uL (0.0-0.8); MONO % 5.9 % (2.0-8.0); NEUTROPHILS # 8.5 10^3/uL (1.5-8.5); NEUTROPHILS % 85.6 % (36.0-66.0); PLATELET COUNT, AUTOMATED 207 10^3/uL (150-450); RED BLOOD COUNT 2.78 10^6/uL (4.00-5.40); WHITE BLOOD COUNT 9.9 10^3/uL (4.0-10.0)
[2021-11-06 11:53] LABS: HEPATITIS B CORE ANTIBODY IGM NEGATIVE (NEGATIVE); HEPATITIS C VIRUS ABY INDEX < 0.0 INDEX (<0.8)
[2021-11-06 14:49] LABS: MAGNESIUM LEVEL 2.4 MG/DL (1.8-2.4)
[2021-11-06] MEDS: PARoxetine 10MG TABLET PO SCH (20:29)
[2021-11-07] VITALS (8 sets, daily range): BP systolic 122–142; BP diastolic 60–72; O2SAT 90–95
[2021-11-07 06:12] LABS: BASO % 0.3 % (0.0-1.0); EOS % 0.1 % (0.0-3.0); HEMATOCRIT 25.8 % (36.0-47.0); HEMOGLOBIN 8.3 g/dl (12.0-15.5); LYMPH # 0.8 10^3/uL (1.5-5.0); LYMPH % 10.5 % (24.0-44.0); MEAN CORPUSCULAR HEMOGLOBIN 30.9 pg (27.0-33.0); MEAN CORPUSCULAR HGB CONC 32.2 g/dl (32.0-36.5); MEAN CORPUSCULAR VOLUME 95.9 fl (80.0-96.0); MONO # 0.7 10^3/uL (0.0-0.8); MONO % 8.3 % (2.0-8.0); NEUTROPHILS # 6.4 10^3/uL (1.5-8.5); NEUTROPHILS % 80.3 % (36.0-66.0); PLATELET COUNT, AUTOMATED 161 10^3/uL (150-450); RED BLOOD COUNT 2.69 10^6/uL (4.00-5.40); WHITE BLOOD COUNT 7.9 10^3/uL (4.0-10.0)
[2021-11-07 06:41] LABS: BLOOD UREA NITROGEN 20 MG/DL (7-18); CARBON DIOXIDE LEVEL 29 MEQ/L (21-32); CHLORIDE LEVEL 104 MEQ/L (98-107); CREATININE FOR GFR 0.92 MG/DL (0.55-1.30); GLOMERULAR FILTRATION RATE > 60.0 (>32); GLUCOSE, FASTING 120 MG/DL (70-100); MAGNESIUM LEVEL 1.9 MG/DL (1.8-2.4); SODIUM LEVEL 136 MEQ/L (136-145)
[2021-11-07] MEDS: DOCUSATE SODIUM 100MG CAPSULE PO SCH ×2 (08:47→21:01)
[2021-11-07] MEDS: ATORVASTATIN 20 MG TAB PO SCH (08:47)
[2021-11-07] MEDS: HEPARIN SOD (PORCINE) 5000UNITS/ML 1ML VIAL/SYRINGE SC SCH ×2 (08:47→21:02)
[2021-11-07] MEDS: VITAMIN D 1,000 INTERNATIONAL UNITS TABLET PO SCH (08:47)
[2021-11-07] MEDS: ASPIRIN 81MG ENTERIC TABLET PO SCH (08:47)
[2021-11-07 10:00] LABS: ALBUMIN 3.4 GM/DL (3.2-5.2); ALT/SGPT 82 U/L (12-78); BILIRUBIN,DIRECT 0.1 MG/DL (0.0-0.2); BILIRUBIN,TOTAL 0.5 MG/DL (0.2-1.0); TOTAL PROTEIN 6.4 GM/DL (6.4-8.2)
[2021-11-07] MEDS: PARoxetine 10MG TABLET PO SCH (21:01)
[2021-11-08 06:00] VITALS: BP 139/71
[2021-11-08 06:21] LABS: BASO % 0.4 % (0.0-1.0); EOS % 0.1 % (0.0-3.0); HEMATOCRIT 21.6 % (36.0-47.0); HEMOGLOBIN 7.2 g/dl (12.0-15.5); LYMPH # 1.1 10^3/uL (1.5-5.0); LYMPH % 12.8 % (24.0-44.0); MEAN CORPUSCULAR HEMOGLOBIN 31.3 pg (27.0-33.0); MEAN CORPUSCULAR HGB CONC 33.3 g/dl (32.0-36.5); MEAN CORPUSCULAR VOLUME 93.9 fl (80.0-96.0); MONO # 0.7 10^3/uL (0.0-0.8); MONO % 8.3 % (2.0-8.0); NEUTROPHILS # 6.4 10^3/uL (1.5-8.5); NEUTROPHILS % 77.8 % (36.0-66.0); PLATELET COUNT, AUTOMATED 145 10^3/uL (150-450); WHITE BLOOD COUNT 8.2 10^3/uL (4.0-10.0)
[2021-11-08 07:22] LABS: ALT/SGPT 52 U/L (12-78); BILIRUBIN,DIRECT 0.2 MG/DL (0.0-0.2); BILIRUBIN,TOTAL 0.5 MG/DL (0.2-1.0); BLOOD UREA NITROGEN 18 MG/DL (7-18); CALCIUM LEVEL 8.7 MG/DL (8.8-10.2); CARBON DIOXIDE LEVEL 28 MEQ/L (21-32); CHLORIDE LEVEL 103 MEQ/L (98-107); CREATININE FOR GFR 0.84 MG/DL (0.55-1.30); GLOMERULAR FILTRATION RATE > 60.0 (>32); GLUCOSE, FASTING 118 MG/DL (70-100); POTASSIUM SERUM 3.5 MEQ/L (3.5-5.1); SODIUM LEVEL 137 MEQ/L (136-145); TOTAL PROTEIN 5.8 GM/DL (6.4-8.2)
[2021-11-08 09:16] LABS: HEMOGLOBIN 7.3 g/dl (12.0-15.5)
[2021-11-08] MEDS: DOCUSATE SODIUM 100MG CAPSULE PO SCH ×2 (09:34→20:37)
[2021-11-08] MEDS: ATORVASTATIN 20 MG TAB PO SCH (09:34)
[2021-11-08] MEDS: ASPIRIN 81MG ENTERIC TABLET PO SCH (09:34)
[2021-11-08] MEDS: VITAMIN D 1,000 INTERNATIONAL UNITS TABLET PO SCH (09:34)
[2021-11-08] MEDS: HEPARIN SOD (PORCINE) 5000UNITS/ML 1ML VIAL/SYRINGE SC SCH ×2 (09:36→20:37)
[2021-11-08 12:07] LABS: FERRITIN 29 NG/ML (8-252); IRON (FE) 17 UG/DL (50-170); PERCENT SATURATION 6.6 % (13.2-45.0); TOTAL IRON BINDING CAPACITY 259 UG/DL (250-450)
[2021-11-08 13:55] VITALS: BP 133/65
[2021-11-08 14:47] VITALS: BP 138/62
[2021-11-08 15:30] VITALS: BP 141/62
[2021-11-08] MEDS: PARoxetine 20MG TABLET PO SCH (20:37)
[2021-11-08] MEDS: FERROUS SULFATE 325MG TAB PO SCH (20:37)
[2021-11-09 06:00] VITALS: BP 156/76
[2021-11-09 06:53] LABS: BASO % 0.4 % (0.0-1.0); HEMATOCRIT 30.2 % (36.0-47.0); LYMPH # 0.7 10^3/uL (1.5-5.0); LYMPH % 6.4 % (24.0-44.0); MEAN CORPUSCULAR HEMOGLOBIN 30.7 pg (27.0-33.0); MEAN CORPUSCULAR HGB CONC 33.4 g/dl (32.0-36.5); MEAN CORPUSCULAR VOLUME 91.8 fl (80.0-96.0); MONO % 8.5 % (2.0-8.0); NEUTROPHILS # 9.3 10^3/uL (1.5-8.5); PLATELET COUNT, AUTOMATED 169 10^3/uL (150-450); RED BLOOD COUNT 3.29 10^6/uL (4.00-5.40); WHITE BLOOD COUNT 11.1 10^3/uL (4.0-10.0)
[2021-11-09 06:57] LABS: HEMOGLOBIN 10.1 g/dl (12.0-15.5)
[2021-11-09 07:49] LABS: ALBUMIN 3.1 GM/DL (3.2-5.2); ALT/SGPT 43 U/L (12-78); BILIRUBIN,DIRECT 0.3 MG/DL (0.0-0.2); BILIRUBIN,TOTAL 0.9 MG/DL (0.2-1.0); BLOOD UREA NITROGEN 15 MG/DL (7-18); CALCIUM LEVEL 8.7 MG/DL (8.8-10.2); CARBON DIOXIDE LEVEL 29 MEQ/L (21-32); CHLORIDE LEVEL 99 MEQ/L (98-107); CREATININE FOR GFR 0.72 MG/DL (0.55-1.30); GLOMERULAR FILTRATION RATE > 60.0 (>32); GLUCOSE, FASTING 119 MG/DL (70-100); MAGNESIUM LEVEL 2.1 MG/DL (1.8-2.4); POTASSIUM SERUM 3.3 MEQ/L (3.5-5.1); SODIUM LEVEL 134 MEQ/L (136-145); TOTAL PROTEIN 6.5 GM/DL (6.4-8.2)
[2021-11-09] MEDS: HEPARIN SOD (PORCINE) 5000UNITS/ML 1ML VIAL/SYRINGE SC SCH ×2 (09:00→21:05)
[2021-11-09] MEDS ORDERED: POTASSIUM CHLORIDE 10MEQ SR TABLET PO ONE (09:00)
[2021-11-09] MEDS: ASPIRIN 81MG ENTERIC TABLET PO SCH (09:00)
[2021-11-09] MEDS: DOCUSATE SODIUM 100MG CAPSULE PO SCH ×2 (09:00→21:04)
[2021-11-09] MEDS: ATORVASTATIN 20 MG TAB PO SCH (09:01)
[2021-11-09] MEDS: VITAMIN D 1,000 INTERNATIONAL UNITS TABLET PO SCH (09:01)
[2021-11-09] MEDS: FERROUS SULFATE 325MG TAB PO SCH ×2 (09:02→21:04)
[2021-11-09] MEDS: PARoxetine 20MG TABLET PO SCH (21:04)
[2021-11-10 06:00] VITALS: BP 126/70
[2021-11-10 07:15] LABS: BASO # 0.1 10^3/uL (0.0-0.2); BASO % 0.7 % (0.0-1.0); EOS # 0.1 10^3/uL (0.0-0.5); EOS % 0.7 % (0.0-3.0); HEMATOCRIT 28.6 % (36.0-47.0); HEMOGLOBIN 9.2 g/dl (12.0-15.5); MEAN CORPUSCULAR HEMOGLOBIN 30.5 pg (27.0-33.0); MEAN CORPUSCULAR HGB CONC 32.2 g/dl (32.0-36.5); MEAN CORPUSCULAR VOLUME 94.7 fl (80.0-96.0); MONO # 0.7 10^3/uL (0.0-0.8); MONO % 10.2 % (2.0-8.0); NEUTROPHILS # 5.1 10^3/uL (1.5-8.5); NEUTROPHILS % 73.5 % (36.0-66.0); PLATELET COUNT, AUTOMATED 185 10^3/uL (150-450); RED BLOOD COUNT 3.02 10^6/uL (4.00-5.40)
[2021-11-10 07:57] LABS: ALBUMIN 2.8 GM/DL (3.2-5.2); ALT/SGPT 38 U/L (12-78); BILIRUBIN,DIRECT 0.2 MG/DL (0.0-0.2); BILIRUBIN,TOTAL 0.7 MG/DL (0.2-1.0); BLOOD UREA NITROGEN 22 MG/DL (7-18); CALCIUM LEVEL 8.8 MG/DL (8.8-10.2); CARBON DIOXIDE LEVEL 31 MEQ/L (21-32); CHLORIDE LEVEL 101 MEQ/L (98-107); CREATININE FOR GFR 0.84 MG/DL (0.55-1.30); GLOMERULAR FILTRATION RATE > 60.0 (>32); GLUCOSE, FASTING 98 MG/DL (70-100); MAGNESIUM LEVEL 2.3 MG/DL (1.8-2.4); POTASSIUM SERUM 4.1 MEQ/L (3.5-5.1); SODIUM LEVEL 135 MEQ/L (136-145); TOTAL PROTEIN 6.1 GM/DL (6.4-8.2)
[2021-11-10] MEDS: DOCUSATE SODIUM 100MG CAPSULE PO SCH ×3 (09:00→21:47)
[2021-11-10] MEDS: VITAMIN D 1,000 INTERNATIONAL UNITS TABLET PO SCH (09:05)
[2021-11-10] MEDS: ASPIRIN 81MG ENTERIC TABLET PO SCH (09:05)
[2021-11-10] MEDS: ATORVASTATIN 20 MG TAB PO SCH (09:05)
[2021-11-10] MEDS: FERROUS SULFATE 325MG TAB PO SCH ×2 (09:05→21:47)
[2021-11-10 09:06] LABS: VITAMIN B12 LEVEL 329 PG/ML (247-911)
[2021-11-10] MEDS: HEPARIN SOD (PORCINE) 5000UNITS/ML 1ML VIAL/SYRINGE SC SCH ×2 (09:06→21:47)
[2021-11-10] MEDS: PARoxetine 20MG TABLET PO SCH (21:47)
[2021-11-11 06:00] VITALS: BP 149/71
[2021-11-11 06:39] LABS: BASO # 0.1 10^3/uL (0.0-0.2); BASO % 0.8 % (0.0-1.0); EOS # 0.1 10^3/uL (0.0-0.5); EOS % 1.4 % (0.0-3.0); HEMATOCRIT 27.5 % (36.0-47.0); HEMOGLOBIN 8.9 g/dl (12.0-15.5); LYMPH # 0.8 10^3/uL (1.5-5.0); LYMPH % 11.2 % (24.0-44.0); MEAN CORPUSCULAR HEMOGLOBIN 30.2 pg (27.0-33.0); MEAN CORPUSCULAR HGB CONC 32.4 g/dl (32.0-36.5); MEAN CORPUSCULAR VOLUME 93.2 fl (80.0-96.0); MONO # 0.7 10^3/uL (0.0-0.8); MONO % 9.9 % (2.0-8.0); NEUTROPHILS # 5.5 10^3/uL (1.5-8.5); NEUTROPHILS % 76.3 % (36.0-66.0); PLATELET COUNT, AUTOMATED 216 10^3/uL (150-450); RED BLOOD COUNT 2.95 10^6/uL (4.00-5.40); WHITE BLOOD COUNT 7.2 10^3/uL (4.0-10.0)
[2021-11-11 07:12] LABS: ALBUMIN 2.6 GM/DL (3.2-5.2); ALT/SGPT 56 U/L (12-78); BILIRUBIN,DIRECT 0.2 MG/DL (0.0-0.2); BILIRUBIN,TOTAL 0.6 MG/DL (0.2-1.0); BLOOD UREA NITROGEN 25 MG/DL (7-18); CALCIUM LEVEL 8.9 MG/DL (8.8-10.2); CARBON DIOXIDE LEVEL 28 MEQ/L (21-32); CHLORIDE LEVEL 103 MEQ/L (98-107); CREATININE FOR GFR 0.76 MG/DL (0.55-1.30); GLOMERULAR FILTRATION RATE > 60.0 (>32); GLUCOSE, FASTING 102 MG/DL (70-100); MAGNESIUM LEVEL 2.3 MG/DL (1.8-2.4); POTASSIUM SERUM 3.9 MEQ/L (3.5-5.1); SODIUM LEVEL 136 MEQ/L (136-145)
[2021-11-11 08:09] LABS: FOLATE 6.8 ng/mL (>3.0)
[2021-11-11] MEDS: VITAMIN D 1,000 INTERNATIONAL UNITS TABLET PO SCH (08:59)
[2021-11-11] MEDS: ATORVASTATIN 20 MG TAB PO SCH (08:59)
[2021-11-11] MEDS: FERROUS SULFATE 325MG TAB PO SCH ×2 (08:59→20:13)
[2021-11-11] MEDS: ASPIRIN 81MG ENTERIC TABLET PO SCH (08:59)
[2021-11-11] MEDS: DOCUSATE SODIUM 100MG CAPSULE PO SCH ×2 (08:59→20:13)
[2021-11-11] MEDS: HEPARIN SOD (PORCINE) 5000UNITS/ML 1ML VIAL/SYRINGE SC SCH ×2 (09:00→20:13)
[2021-11-11] MEDS ORDERED: COVID-19 VAC, TRIS(PFIZER)/PF 30 MCG/0.3 ML VIAL IM.IMMUN ONE (16:55)
[2021-11-11] MEDS ORDERED: COVID-19 VAC, BV (MODERNA)/PF 50 MCG/0.5 ML VIAL (EUA) IM.IMMUN ONE (18:00)
[2021-11-11] MEDS: PARoxetine 20MG TABLET PO SCH (20:13)
[2021-11-12 05:43] VITALS: BP 148/66
[2021-11-12 07:25] LABS: BASO # 0.1 10^3/uL (0.0-0.2); BASO % 0.7 % (0.0-1.0); EOS # 0.1 10^3/uL (0.0-0.5); EOS % 1.8 % (0.0-3.0); HEMATOCRIT 26.2 % (36.0-47.0); HEMOGLOBIN 8.4 g/dl (12.0-15.5); LYMPH # 0.9 10^3/uL (1.5-5.0); LYMPH % 11.7 % (24.0-44.0); MEAN CORPUSCULAR HEMOGLOBIN 30.4 pg (27.0-33.0); MEAN CORPUSCULAR HGB CONC 32.1 g/dl (32.0-36.5); MEAN CORPUSCULAR VOLUME 94.9 fl (80.0-96.0); MONO # 0.7 10^3/uL (0.0-0.8); MONO % 9.6 % (2.0-8.0); NEUTROPHILS # 5.5 10^3/uL (1.5-8.5); NEUTROPHILS % 75.8 % (36.0-66.0); PLATELET COUNT, AUTOMATED 232 10^3/uL (150-450); RED BLOOD COUNT 2.76 10^6/uL (4.00-5.40); WHITE BLOOD COUNT 7.3 10^3/uL (4.0-10.0)
[2021-11-12 07:59] LABS: ALBUMIN 2.5 GM/DL (3.2-5.2); ALT/SGPT 59 U/L (12-78); BILIRUBIN,DIRECT 0.2 MG/DL (0.0-0.2); BILIRUBIN,TOTAL 0.7 MG/DL (0.2-1.0); BLOOD UREA NITROGEN 25 MG/DL (7-18); CALCIUM LEVEL 8.8 MG/DL (8.8-10.2); CARBON DIOXIDE LEVEL 28 MEQ/L (21-32); CHLORIDE LEVEL 101 MEQ/L (98-107); CREATININE FOR GFR 0.83 MG/DL (0.55-1.30); GLOMERULAR FILTRATION RATE > 60.0 (>32); GLUCOSE, FASTING 96 MG/DL (70-100); MAGNESIUM LEVEL 2.1 MG/DL (1.8-2.4); POTASSIUM SERUM 4.1 MEQ/L (3.5-5.1); SODIUM LEVEL 134 MEQ/L (136-145); TOTAL PROTEIN 5.9 GM/DL (6.4-8.2)
[2021-11-12] MEDS: HEPARIN SOD (PORCINE) 5000UNITS/ML 1ML VIAL/SYRINGE SC SCH ×2 (09:53→22:33)
[2021-11-12] MEDS: ASPIRIN 81MG ENTERIC TABLET PO SCH (09:53)
[2021-11-12] MEDS: FERROUS SULFATE 325MG TAB PO SCH ×2 (09:53→22:33)
[2021-11-12] MEDS: ATORVASTATIN 20 MG TAB PO SCH (09:53)
[2021-11-12] MEDS: DOCUSATE SODIUM 100MG CAPSULE PO SCH ×2 (09:54→22:33)
[2021-11-12] MEDS: VITAMIN D 1,000 INTERNATIONAL UNITS TABLET PO SCH (09:54)
[2021-11-12] MEDS: PARoxetine 20MG TABLET PO SCH (22:33)
[2021-11-13 06:00] VITALS: BP 146/79
[2021-11-13 06:35] LABS: BASO # 0.1 10^3/uL (0.0-0.2); BASO % 0.8 % (0.0-1.0); EOS # 0.2 10^3/uL (0.0-0.5); EOS % 2.1 % (0.0-3.0); HEMATOCRIT 27.3 % (36.0-47.0); HEMOGLOBIN 8.7 g/dl (12.0-15.5); LYMPH # 0.8 10^3/uL (1.5-5.0); LYMPH % 10.7 % (24.0-44.0); MEAN CORPUSCULAR HEMOGLOBIN 30.5 pg (27.0-33.0); MEAN CORPUSCULAR HGB CONC 31.9 g/dl (32.0-36.5); MEAN CORPUSCULAR VOLUME 95.8 fl (80.0-96.0); MONO # 0.8 10^3/uL (0.0-0.8); NEUTROPHILS # 5.8 10^3/uL (1.5-8.5); NEUTROPHILS % 75.9 % (36.0-66.0); PLATELET COUNT, AUTOMATED 255 10^3/uL (150-450); RED BLOOD COUNT 2.85 10^6/uL (4.00-5.40); WHITE BLOOD COUNT 7.6 10^3/uL (4.0-10.0)
[2021-11-13 06:56] LABS: BLOOD UREA NITROGEN 27 MG/DL (7-18); CALCIUM LEVEL 9.4 MG/DL (8.8-10.2); CARBON DIOXIDE LEVEL 28 MEQ/L (21-32); CHLORIDE LEVEL 103 MEQ/L (98-107); CREATININE FOR GFR 0.82 MG/DL (0.55-1.30); GLOMERULAR FILTRATION RATE > 60.0 (>32); GLUCOSE, FASTING 106 MG/DL (70-100); MAGNESIUM LEVEL 2.2 MG/DL (1.8-2.4); POTASSIUM SERUM 4.1 MEQ/L (3.5-5.1); SODIUM LEVEL 136 MEQ/L (136-145)
[2021-11-13 07:30] VITALS: BP 130/67
[2021-11-13 08:00] VITALS: BP 130/67
[2021-11-13] MEDS ORDERED: PANTOPRAZOLE 40MG TAB (PROTONIX) PO SCH (09:00)
[2021-11-13] MEDS: HEPARIN SOD (PORCINE) 5000UNITS/ML 1ML VIAL/SYRINGE SC SCH (10:25)
[2021-11-13 10:26] VITALS: BP 130/67
[2021-11-13] MEDS: ATORVASTATIN 20 MG TAB PO SCH (10:26)
[2021-11-13] MEDS: FERROUS SULFATE 325MG TAB PO SCH (10:26)
[2021-11-13] MEDS: ASPIRIN 81MG ENTERIC TABLET PO SCH (10:26)
[2021-11-13] MEDS: DOCUSATE SODIUM 100MG CAPSULE PO SCH (10:26)
[2021-11-13] MEDS: VITAMIN D 1,000 INTERNATIONAL UNITS TABLET PO SCH (10:26)
[2021-11-13] MEDS ORDERED: PARO20TA4 PO (12:46)
[2021-11-13] MEDS ORDERED: PROT1TAB2 PO (15:17)
[2021-11-13] MEDS ORDERED: MYLASSUD FT (15:21)
[2021-11-13] MEDS ORDERED: GI COCKTAIL 50ML BTL(HYOSCYAMINE/MAALOX/LIDOCAINE VISCOUS)(1:3:1) PO ONE (16:00)
[2021-11-13 16:42] VITALS: BP 128/56
[2021-11-13] MEDS: NORCO, ANEXSIA 5/325MG TABLET (HYDROcodone/ACETAMINOPHEN) PO PRN (16:42)
== END 2021-11-13 16:55 | DRG 543 ==
LOC: M ED 18:25 → EDBD 18:25 → M ED INP 11-06 00:50 → M MSPAV 11-06 02:10
PROVIDERS: ADMIT Internal Medicine; ATTEND Internal Medicine
PROC: 30233N1 Transfusion of Nonautologous Red Blood Cells into Peripheral Vein, Percutaneous Approach (ICD-10-PCS; principal; 2021-11-08)
DX: M80.022A Age-related osteoporosis with current pathological fracture, left humerus, initial encounter for fracture (principal); R45.851 Suicidal ideations; E87.1 Hypo-osmolality and hyponatremia; D62 Acute posthemorrhagic anemia; M80.052A Age-related osteoporosis with current pathological fracture, left femur, initial encounter for fracture; I10 Essential (primary) hypertension; E78.5 Hyperlipidemia, unspecified; I25.10 Atherosclerotic heart disease of native coronary artery without angina pectoris; M80.88XA Other osteoporosis with current pathological fracture, vertebra(e), initial encounter for fracture; K21.9 Gastro-esophageal reflux disease without esophagitis; K44.9 Diaphragmatic hernia without obstruction or gangrene; G89.29 Other chronic pain; J30.9 Allergic rhinitis, unspecified; R74.01 Elevation of levels of liver transaminase levels; J43.9 Emphysema, unspecified; G31.84 Mild cognitive impairment of uncertain or unknown etiology; F32.89 Other specified depressive episodes; Z63.4 Disappearance and death of family member; Z79.82 Long term (current) use of aspirin; Z79.899 Other long term (current) drug therapy; Z85.3 Personal history of malignant neoplasm of breast; Z92.3 Personal history of irradiation; Z86.73 Personal history of transient ischemic attack (TIA), and cerebral infarction without residual deficits; Z88.8 Allergy status to other drugs, medicaments and biological substances

== ENCOUNTER → 2021-12-04 | Outpatient (CLI) | payer MEDICARE, OTHER ==
[~2021-12-04] MED LIST changes: +AMLO2.5T3 PO; +MYLASSUD FT; +PARO20TA4 PO; +PARO5TAB PO; +PROT1TAB2 PO; +VITA100093 PO
== END ==
LOC: M SOG 13:58
PROVIDERS: ATTEND Student in an Organized Health Care Education/Training Program
DX: S42.252D Displaced fracture of greater tuberosity of left humerus, subsequent encounter for fracture with routine healing (principal); M85.38 Osteitis condensans, other site

== ENCOUNTER → 2021-12-17 | Outpatient (REF) ==
[~2021-12-17] MED LIST changes: +CLOP75TA99 PO; -PLAV1TAB2 PO
[2021-12-17 11:07] LABS: HEMATOCRIT 33.1 % (36.0-47.0); HEMOGLOBIN 10.4 g/dl (12.0-15.5); MEAN CORPUSCULAR HEMOGLOBIN 30.6 pg (27.0-33.0); MEAN CORPUSCULAR HGB CONC 31.4 g/dl (32.0-36.5); MEAN CORPUSCULAR VOLUME 97.4 fl (80.0-96.0); PLATELET COUNT, AUTOMATED 285 10^3/uL (150-450); WHITE BLOOD COUNT 4.9 10^3/uL (4.0-10.0)
[2021-12-17 11:42] LABS: BLOOD UREA NITROGEN 18 MG/DL (7-18); CALCIUM LEVEL 9.3 MG/DL (8.8-10.2); CARBON DIOXIDE LEVEL 27 MEQ/L (21-32); CHLORIDE LEVEL 106 MEQ/L (98-107); GLOMERULAR FILTRATION RATE > 60.0 (>32); GLUCOSE, FASTING 118 MG/DL (70-100); POTASSIUM SERUM 3.9 MEQ/L (3.5-5.1); SODIUM LEVEL 139 MEQ/L (136-145)
== END ==
PROVIDERS: ATTEND Physician Assistant
DX: D64.9 Anemia, unspecified (principal)

== ENCOUNTER → 2021-12-24 | Outpatient (REF) ==
[2021-12-24 10:11] LABS: HEMATOCRIT 32.9 % (36.0-47.0); HEMOGLOBIN 10.1 g/dl (12.0-15.5); MEAN CORPUSCULAR HEMOGLOBIN 30.1 pg (27.0-33.0); MEAN CORPUSCULAR HGB CONC 30.7 g/dl (32.0-36.5); MEAN CORPUSCULAR VOLUME 98.2 fl (80.0-96.0); PLATELET COUNT, AUTOMATED 253 10^3/uL (150-450); RED BLOOD COUNT 3.35 10^6/uL (4.00-5.40); WHITE BLOOD COUNT 4.7 10^3/uL (4.0-10.0)
[2021-12-24 11:18] LABS: BLOOD UREA NITROGEN 13 MG/DL (7-18); CALCIUM LEVEL 9.2 MG/DL (8.8-10.2); CARBON DIOXIDE LEVEL 26 MEQ/L (21-32); CHLORIDE LEVEL 107 MEQ/L (98-107); CREATININE FOR GFR 0.82 MG/DL (0.55-1.30); GLOMERULAR FILTRATION RATE > 60.0 (>32); GLUCOSE, FASTING 95 MG/DL (70-100); POTASSIUM SERUM 3.9 MEQ/L (3.5-5.1); SODIUM LEVEL 141 MEQ/L (136-145)
== END ==
PROVIDERS: ATTEND Physician Assistant
DX: D64.9 Anemia, unspecified (principal)

== ENCOUNTER → 2022-01-06 | Outpatient (REF) | payer MEDICARE, OTHER | LOC: M RAD 10:07 → EDSTATUS 01-15 14:09 | PROVIDERS: ATTEND Internal Medicine | DX: M54.9 Dorsalgia, unspecified (principal); M47.816 Spondylosis without myelopathy or radiculopathy, lumbar region; M48.56XA Collapsed vertebra, not elsewhere classified, lumbar region, initial encounter for fracture; M48.54XA Collapsed vertebra, not elsewhere classified, thoracic region, initial encounter for fracture ==

== ENCOUNTER 2022-01-13 00:47 | Emergency (ER) | payer MEDICARE, OTHER ==
[~2022-01-13] VITALS: Ht 172.7 cm; Wt 68.2 kg
[2022-01-13] MEDS ORDERED: fentaNYL 100 MCG/2 ML INJECTION IV ONE (02:15)
[2022-01-13] MEDS ORDERED: ONDANSETRON 4MG 2ML VIAL IV ONE (03:25)
[2022-01-13] MEDS ORDERED: MORPHINE 4 MG/ML 1ML VIAL IV ONE (03:25)
[2022-01-13 07:41] VITALS: BP 169/77
== END 2022-01-13 07:44 | disposition home or self-care (01) ==
LOC: EDBD 00:47 → M ED 00:47
DX: S32.312A Displaced avulsion fracture of left ilium, initial encounter for closed fracture (principal); W01.0XXA Fall on same level from slipping, tripping and stumbling without subsequent striking against object, initial encounter; M48.02 Spinal stenosis, cervical region; E04.1 Nontoxic single thyroid nodule; M25.462 Effusion, left knee; K57.30 Diverticulosis of large intestine without perforation or abscess without bleeding; J44.9 Chronic obstructive pulmonary disease, unspecified; J45.909 Unspecified asthma, uncomplicated; Z85.3 Personal history of malignant neoplasm of breast; Z86.73 Personal history of transient ischemic attack (TIA), and cerebral infarction without residual deficits; Z79.891 Long term (current) use of opiate analgesic; Z96.659 Presence of unspecified artificial knee joint; Z79.811 Long term (current) use of aromatase inhibitors; Z79.82 Long term (current) use of aspirin; Z79.899 Other long term (current) drug therapy
CPT/HCPCS: 70450; 72125; 73502; 73552; 73700; 96374; 96375; 99284; J2270; J2405; J3010

== ENCOUNTER → 2022-01-14 | Outpatient (REF) | payer MEDICARE, OTHER | PROVIDERS: ATTEND Internal Medicine | DX: M25.462 Effusion, left knee (principal); Z96.652 Presence of left artificial knee joint ==

== ENCOUNTER → 2022-01-22 | Outpatient (REF) | payer MEDICARE, OTHER ==
[2022-01-22 12:30] LABS: BASO # 0.1 10^3/uL (0.0-0.2); BASO % 0.8 % (0.0-1.0); EOS # 0.2 10^3/uL (0.0-0.5); EOS % 2.8 % (0.0-3.0); HEMATOCRIT 31.4 % (36.0-47.0); HEMOGLOBIN 9.7 g/dl (12.0-15.5); LYMPH # 0.9 10^3/uL (1.5-5.0); LYMPH % 14.3 % (24.0-44.0); MEAN CORPUSCULAR HEMOGLOBIN 29.6 pg (27.0-33.0); MEAN CORPUSCULAR HGB CONC 30.9 g/dl (32.0-36.5); MEAN CORPUSCULAR VOLUME 95.7 fl (80.0-96.0); MONO # 0.4 10^3/uL (0.0-0.8); MONO % 6.3 % (2.0-8.0); NEUTROPHILS # 4.8 10^3/uL (1.5-8.5); NEUTROPHILS % 75.2 % (36.0-66.0); PLATELET COUNT, AUTOMATED 332 10^3/uL (150-450); RED BLOOD COUNT 3.28 10^6/uL (4.00-5.40); WHITE BLOOD COUNT 6.4 10^3/uL (4.0-10.0)
[2022-01-22 13:29] LABS: ERYTHROCYTE SEDIMENTATION RATE 56 mm/hr (0-30)
== END ==
LOC: EDSTATUS 10:30 → M RAD 10:48
PROVIDERS: ATTEND Physician Assistant Surgical
DX: M25.462 Effusion, left knee (principal); Z96.652 Presence of left artificial knee joint; M80.052A Age-related osteoporosis with current pathological fracture, left femur, initial encounter for fracture; I70.202 Unspecified atherosclerosis of native arteries of extremities, left leg

== ENCOUNTER → 2022-01-28 | Outpatient (REF) ==
[2022-01-28 10:25] LABS: HEMATOCRIT 30.9 % (36.0-47.0); HEMOGLOBIN 9.6 g/dl (12.0-15.5); MEAN CORPUSCULAR HEMOGLOBIN 29.5 pg (27.0-33.0); MEAN CORPUSCULAR HGB CONC 31.1 g/dl (32.0-36.5); MEAN CORPUSCULAR VOLUME 95.1 fl (80.0-96.0); PLATELET COUNT, AUTOMATED 370 10^3/uL (150-450); RED BLOOD COUNT 3.25 10^6/uL (4.00-5.40); WHITE BLOOD COUNT 6.8 10^3/uL (4.0-10.0)
[2022-01-28 11:17] LABS: BLOOD UREA NITROGEN 18 MG/DL (9-23); CALCIUM LEVEL 9.6 MG/DL (8.3-10.6); CARBON DIOXIDE LEVEL 28 MMOL/L (20-31); CHLORIDE LEVEL 103 MMOL/L (98-107); CREATININE FOR GFR 0.75 MG/DL (0.55-1.30); GLOMERULAR FILTRATION RATE > 60.0 (>32); GLUCOSE, FASTING 112 MG/DL (74-106); POTASSIUM SERUM 4.3 MMOL/L (3.5-5.1); SODIUM LEVEL 138 MMOL/L (136-145)
== END ==
PROVIDERS: ATTEND Physician Assistant
DX: D64.9 Anemia, unspecified (principal)

== ENCOUNTER → 2022-03-04 | Outpatient (REF) | payer MEDICARE, OTHER ==
[2022-03-04 10:59] LABS: HEMATOCRIT 31.1 % (36.0-47.0); HEMOGLOBIN 9.8 g/dl (12.0-15.5); MEAN CORPUSCULAR HEMOGLOBIN 30.6 pg (27.0-33.0); MEAN CORPUSCULAR HGB CONC 31.5 g/dl (32.0-36.5); MEAN CORPUSCULAR VOLUME 97.2 fl (80.0-96.0); PLATELET COUNT, AUTOMATED 219 10^3/uL (150-450); WHITE BLOOD COUNT 5.5 10^3/uL (4.0-10.0)
[2022-03-04 11:33] LABS: BLOOD UREA NITROGEN 19 MG/DL (9-23); CALCIUM LEVEL 9.3 MG/DL (8.3-10.6); CARBON DIOXIDE LEVEL 28 MMOL/L (20-31); CHLORIDE LEVEL 107 MMOL/L (98-107); CREATININE FOR GFR 0.76 MG/DL (0.55-1.30); GLOMERULAR FILTRATION RATE > 60.0 (>32); GLUCOSE, FASTING 95 MG/DL (74-106); POTASSIUM SERUM 3.9 MMOL/L (3.5-5.1); SODIUM LEVEL 142 MMOL/L (136-145)
== END ==
PROVIDERS: ATTEND Physician Assistant
DX: E78.5 Hyperlipidemia, unspecified (principal)

== ENCOUNTER → 2022-03-24 | Outpatient (REF) | payer MEDICARE, OTHER ==
[2022-03-24 17:49] LABS: HEMOGLOBIN 10.2 g/dl (12.0-15.5); RED BLOOD COUNT 3.29 10^6/uL (4.00-5.40); WHITE BLOOD COUNT 5.5 10^3/uL (4.0-10.0)
[2022-03-24 17:50] LABS: HEMATOCRIT 31.8 % (36.0-47.0); MEAN CORPUSCULAR HGB CONC 32.1 g/dl (32.0-36.5); MEAN CORPUSCULAR VOLUME 96.7 fl (80.0-96.0); PLATELET COUNT, AUTOMATED 217 10^3/uL (150-450)
[2022-03-24 18:10] LABS: BLOOD UREA NITROGEN 21 MG/DL (9-23); CALCIUM LEVEL 8.9 MG/DL (8.3-10.6); CARBON DIOXIDE LEVEL 27 MMOL/L (20-31); CHLORIDE LEVEL 105 MMOL/L (98-107); CREATININE FOR GFR 0.91 MG/DL (0.55-1.30); GLOMERULAR FILTRATION RATE > 60.0 (>32); GLUCOSE, FASTING 105 MG/DL (74-106); POTASSIUM SERUM 3.8 MMOL/L (3.5-5.1); SODIUM LEVEL 141 MMOL/L (136-145); THYROID STIMULATING HORMONE 1.143 uIU/ML (0.55-4.78)
== END ==
PROVIDERS: ATTEND Physician Assistant
DX: F32.A Depression, unspecified (principal); Z79.899 Other long term (current) drug therapy

== ENCOUNTER → 2022-04-01 | Outpatient (REF) | payer MEDICARE, OTHER ==
[2022-04-01 11:09] LABS: HEMATOCRIT 32.8 % (36.0-47.0); HEMOGLOBIN 10.6 g/dl (12.0-15.5); MEAN CORPUSCULAR HEMOGLOBIN 30.8 pg (27.0-33.0); MEAN CORPUSCULAR HGB CONC 32.3 g/dl (32.0-36.5); MEAN CORPUSCULAR VOLUME 95.3 fl (80.0-96.0); PLATELET COUNT, AUTOMATED 224 10^3/uL (150-450); RED BLOOD COUNT 3.44 10^6/uL (4.00-5.40); WHITE BLOOD COUNT 5.8 10^3/uL (4.0-10.0)
[2022-04-01 11:38] LABS: BLOOD UREA NITROGEN 17 MG/DL (9-23); CALCIUM LEVEL 9.5 MG/DL (8.3-10.6); CARBON DIOXIDE LEVEL 29 MMOL/L (20-31); CHLORIDE LEVEL 104 MMOL/L (98-107); CREATININE FOR GFR 0.79 MG/DL (0.55-1.30); GLOMERULAR FILTRATION RATE > 60.0 (>32); GLUCOSE, FASTING 140 MG/DL (74-106); POTASSIUM SERUM 3.7 MMOL/L (3.5-5.1); SODIUM LEVEL 140 MMOL/L (136-145)
== END ==
PROVIDERS: ATTEND Internal Medicine
DX: D64.9 Anemia, unspecified (principal)

== ENCOUNTER → 2022-04-08 | Outpatient (REF) | payer MEDICARE, OTHER ==
[2022-04-08 08:35] LABS: HEMATOCRIT 30.2 % (36.0-47.0); HEMOGLOBIN 9.3 g/dl (12.0-15.5); MEAN CORPUSCULAR HGB CONC 30.8 g/dl (32.0-36.5); MEAN CORPUSCULAR VOLUME 97.4 fl (80.0-96.0); PLATELET COUNT, AUTOMATED 197 10^3/uL (150-450); WHITE BLOOD COUNT 8.1 10^3/uL (4.0-10.0)
[2022-04-08 09:10] LABS: BLOOD UREA NITROGEN 20 MG/DL (9-23); CALCIUM LEVEL 9.3 MG/DL (8.3-10.6); CARBON DIOXIDE LEVEL 30 MMOL/L (20-31); CHLORIDE LEVEL 109 MMOL/L (98-107); CREATININE FOR GFR 0.85 MG/DL (0.55-1.30); GLOMERULAR FILTRATION RATE > 60.0 (>32); GLUCOSE, FASTING 99 MG/DL (74-106); POTASSIUM SERUM 3.9 MMOL/L (3.5-5.1); SODIUM LEVEL 144 MMOL/L (136-145)
== END ==
PROVIDERS: ATTEND Internal Medicine
DX: R09.02 Hypoxemia (principal)

== ENCOUNTER → 2022-04-08 | Outpatient (REF) | payer MEDICARE, BC, OTHER | PROVIDERS: ATTEND Internal Medicine | DX: R09.02 Hypoxemia (principal) ==

== ENCOUNTER 2022-05-06 00:13 | Emergency (ER) | payer MEDICARE, BC, OTHER ==
[~2022-05-06] VITALS: Ht 165.1 cm; Wt 69.5 kg
[2022-05-06 01:27] LABS: BASO # 0.1 10^3/uL (0.0-0.2); BASO % 0.6 % (0.0-1.0); EOS % 0.2 % (0.0-3.0); HEMATOCRIT 31.7 % (36.0-47.0); HEMOGLOBIN 10.4 g/dl (12.0-15.5); LYMPH # 0.7 10^3/uL (1.5-5.0); LYMPH % 8.1 % (24.0-44.0); MEAN CORPUSCULAR HGB CONC 32.8 g/dl (32.0-36.5); MEAN CORPUSCULAR VOLUME 94.6 fl (80.0-96.0); MONO # 0.4 10^3/uL (0.0-0.8); MONO % 3.9 % (2.0-8.0); NEUTROPHILS # 7.7 10^3/uL (1.5-8.5); NEUTROPHILS % 86.9 % (36.0-66.0); PLATELET COUNT, AUTOMATED 220 10^3/uL (150-450); RED BLOOD COUNT 3.35 10^6/uL (4.00-5.40); WHITE BLOOD COUNT 8.9 10^3/uL (4.0-10.0)
[2022-05-06 01:36] LABS: LIPASE 124 U/L (12-53)
[2022-05-06 01:41] LABS: INR 1.04; PROTHROMBIN TIME 13.8 SECONDS (12.5-14.5)
[2022-05-06 01:43] LABS: ALBUMIN 3.5 G/DL (3.2-5.2); ALKALINE PHOSPHATASE 126 U/L (46-116); ALT/SGPT 21 U/L (7.0-40); AST/SGOT 34 U/L (<34); BILIRUBIN,DIRECT 0.1 MG/DL (<0.4); BILIRUBIN,TOTAL 0.4 MG/DL (0.3-1.2); BLOOD UREA NITROGEN 16 MG/DL (9-23); CALCIUM LEVEL 9.1 MG/DL (8.3-10.6); CARBON DIOXIDE LEVEL 24 MMOL/L (20-31); CHLORIDE LEVEL 105 MMOL/L (98-107); CK-MB VALUE MASS < 1.0 NG/ML (<3.6); GLOMERULAR FILTRATION RATE > 60.0 (>32); GLUCOSE, FASTING 160 MG/DL (74-106); SODIUM LEVEL 137 MMOL/L (136-145); THYROID STIMULATING HORMONE 0.787 uIU/ML (0.55-4.78); TOTAL PROTEIN 6.9 G/DL (5.7-8.2)
[2022-05-06 01:54] LABS: CPK CREATINE PHOSPHOKINASE 61 U/L (34-145); MB/CK RELATIVE INDEX 1.63 (< OR =4)
[2022-05-06 02:15] LABS: CK-MB VALUE MASS < 1.0 NG/ML (<3.6)
[2022-05-06 02:18] LABS: CPK CREATINE PHOSPHOKINASE 48 U/L (34-145); MB/CK RELATIVE INDEX 2.08 (< OR =4)
[2022-05-06 03:45] VITALS: BP 158/71
== END 2022-05-06 04:19 | disposition home or self-care (01) ==
LOC: EDBD 00:13 → M ED 00:13
DX: S09.90XA Unspecified injury of head, initial encounter (principal); W07.XXXA Fall from chair, initial encounter; Y92.129 Unspecified place in nursing home as the place of occurrence of the external cause; Y93.89 Activity, other specified; Y99.8 Other external cause status; G30.9 Alzheimer's disease, unspecified; Z88.8 Allergy status to other drugs, medicaments and biological substances; Z79.899 Other long term (current) drug therapy; Z79.82 Long term (current) use of aspirin; Z87.891 Personal history of nicotine dependence

== ENCOUNTER → 2022-05-06 | Outpatient (REF) | payer MEDICARE, BC, OTHER ==
[2022-05-06 18:12] LABS: HEMATOCRIT 31.4 % (36.0-47.0); MEAN CORPUSCULAR HEMOGLOBIN 30.9 pg (27.0-33.0); MEAN CORPUSCULAR HGB CONC 31.8 g/dl (32.0-36.5); MEAN CORPUSCULAR VOLUME 96.9 fl (80.0-96.0); PLATELET COUNT, AUTOMATED 242 10^3/uL (150-450); RED BLOOD COUNT 3.24 10^6/uL (4.00-5.40); WHITE BLOOD COUNT 7.3 10^3/uL (4.0-10.0)
[2022-05-06 18:40] LABS: BLOOD UREA NITROGEN 17 MG/DL (9-23); CALCIUM LEVEL 9.2 MG/DL (8.3-10.6); CARBON DIOXIDE LEVEL 28 MMOL/L (20-31); CHLORIDE LEVEL 105 MMOL/L (98-107); CREATININE FOR GFR 0.69 MG/DL (0.55-1.30); GLOMERULAR FILTRATION RATE > 60.0 (>32); GLUCOSE, FASTING 123 MG/DL (74-106); POTASSIUM SERUM 3.5 MMOL/L (3.5-5.1); SODIUM LEVEL 141 MMOL/L (136-145)
== END ==
PROVIDERS: ATTEND Internal Medicine
DX: R11.0 Nausea (principal)

== ENCOUNTER → 2022-06-12 | Outpatient (REF) | payer MEDICARE, BC, OTHER | PROVIDERS: ATTEND Internal Medicine | DX: M77.32 Calcaneal spur, left foot (principal); M12.9 Arthropathy, unspecified; M85.872 Other specified disorders of bone density and structure, left ankle and foot ==

== ENCOUNTER → 2022-06-29 | Outpatient (REF) | payer MEDICARE, BC, OTHER ==
[2022-06-29 10:43] LABS: HEMATOCRIT 30.5 % (36.0-47.0); HEMOGLOBIN 9.5 g/dl (12.0-15.5); MEAN CORPUSCULAR HEMOGLOBIN 30.1 pg (27.0-33.0); MEAN CORPUSCULAR HGB CONC 31.1 g/dl (32.0-36.5); MEAN CORPUSCULAR VOLUME 96.5 fl (80.0-96.0); PLATELET COUNT, AUTOMATED 247 10^3/uL (150-450); RED BLOOD COUNT 3.16 10^6/uL (4.00-5.40)
[2022-06-29 11:14] LABS: BLOOD UREA NITROGEN 22 MG/DL (9-23); CALCIUM LEVEL 9.4 MG/DL (8.3-10.6); CARBON DIOXIDE LEVEL 28 MMOL/L (20-31); CHLORIDE LEVEL 106 MMOL/L (98-107); CREATININE FOR GFR 0.81 MG/DL (0.55-1.30); GLOMERULAR FILTRATION RATE > 60.0 (>32); GLUCOSE, FASTING 113 MG/DL (74-106); POTASSIUM SERUM 4.1 MMOL/L (3.5-5.1); SODIUM LEVEL 141 MMOL/L (136-145)
== END ==
PROVIDERS: ATTEND Internal Medicine
DX: I10 Essential (primary) hypertension (principal)

== ENCOUNTER → 2022-08-29 | Outpatient (REF) | payer MEDICARE, BC, OTHER ==
[2022-08-29 22:47] LABS: HEMATOCRIT 31.8 % (36.0-47.0); HEMOGLOBIN 9.8 g/dl (12.0-15.5); MEAN CORPUSCULAR HEMOGLOBIN 28.7 pg (27.0-33.0); MEAN CORPUSCULAR HGB CONC 30.8 g/dl (32.0-36.5); MEAN CORPUSCULAR VOLUME 93.3 fl (80.0-96.0); PLATELET COUNT, AUTOMATED 274 10^3/uL (150-450); RED BLOOD COUNT 3.41 10^6/uL (4.00-5.40); WHITE BLOOD COUNT 6.5 10^3/uL (4.0-10.0)
[2022-08-29 23:00] LABS: BLOOD UREA NITROGEN 17 MG/DL (9-23); CALCIUM LEVEL 8.9 MG/DL (8.3-10.6); CARBON DIOXIDE LEVEL 27 MMOL/L (20-31); CHLORIDE LEVEL 104 MMOL/L (98-107); GLOMERULAR FILTRATION RATE > 60.0 (>32); GLUCOSE, FASTING 91 MG/DL (74-106); POTASSIUM SERUM 4.1 MMOL/L (3.5-5.1); SODIUM LEVEL 139 MMOL/L (136-145)
== END ==
PROVIDERS: ATTEND Internal Medicine
DX: R06.2 Wheezing (principal)

== ENCOUNTER → 2022-09-22 | Outpatient (REF) | payer MEDICARE, BC, OTHER | PROVIDERS: ATTEND Internal Medicine | DX: J84.9 Interstitial pulmonary disease, unspecified (principal) ==

== ENCOUNTER → 2022-10-05 | Outpatient (REF) | payer MEDICARE, BC, OTHER ==
[2022-10-05 08:25] LABS: HEMATOCRIT 29.9 % (36.0-47.0); HEMOGLOBIN 9.1 g/dl (12.0-15.5); MEAN CORPUSCULAR HEMOGLOBIN 28.4 pg (27.0-33.0); MEAN CORPUSCULAR HGB CONC 30.4 g/dl (32.0-36.5); MEAN CORPUSCULAR VOLUME 93.4 fl (80.0-96.0); PLATELET COUNT, AUTOMATED 217 10^3/uL (150-450); WHITE BLOOD COUNT 5.8 10^3/uL (4.0-10.0)
[2022-10-05 09:09] LABS: BLOOD UREA NITROGEN 18 MG/DL (9-23); CALCIUM LEVEL 9.1 MG/DL (8.3-10.6); CARBON DIOXIDE LEVEL 27 MMOL/L (20-31); CHLORIDE LEVEL 108 MMOL/L (98-107); CREATININE FOR GFR 0.92 MG/DL (0.55-1.30); GLOMERULAR FILTRATION RATE > 60.0 (>32); GLUCOSE, FASTING 92 MG/DL (74-106); POTASSIUM SERUM 4.6 MMOL/L (3.5-5.1); SODIUM LEVEL 143 MMOL/L (136-145)
== END ==
PROVIDERS: ATTEND Internal Medicine
DX: I10 Essential (primary) hypertension (principal)

== ENCOUNTER → 2023-03-01 | Outpatient (CLI) | payer MEDICARE, BC, OTHER ==
[~2023-03-01] MED LIST changes: -COZA1TAB PO; +EZET10TA58 PO; +LOSA-527 PO; +MECL-209 PO; -MECL1TAB31 PO; -ZETI10TA16 PO
== END ==
LOC: M RAD 11:57
PROVIDERS: ATTEND Internal Medicine
DX: R07.81 Pleurodynia (principal); J84.9 Interstitial pulmonary disease, unspecified; M84.421A Pathological fracture, right humerus, initial encounter for fracture

== ENCOUNTER → 2023-03-05 | Outpatient (CLI) | payer MEDICARE, BC, OTHER | LOC: M SOG 07:55 | PROVIDERS: ATTEND Orthopaedic Surgery | DX: M25.511 Pain in right shoulder (principal) ==

== ENCOUNTER 2023-04-04 01:09 | Emergency (ER) | payer MEDICARE, BC, OTHER ==
[~2023-04-04] VITALS: Ht 165.1 cm; Wt 63.6 kg
[~2023-04-04 01:09] MED LIST changes: -MIRA1POW3 PO; +MIRA33506 PO
[2023-04-04 02:10] LABS: BASO # 0.1 10^3/uL (0.0-0.2); BASO % 0.9 % (0.0-1.0); EOS # 0.1 10^3/uL (0.0-0.5); EOS % 1.6 % (0.0-3.0); HEMATOCRIT 30.3 % (36.0-47.0); HEMOGLOBIN 9.4 g/dl (12.0-15.5); LYMPH # 0.9 10^3/uL (1.5-5.0); LYMPH % 10.9 % (24.0-44.0); MEAN CORPUSCULAR HEMOGLOBIN 26.6 pg (27.0-33.0); MEAN CORPUSCULAR VOLUME 85.8 fl (80.0-96.0); MONO # 0.4 10^3/uL (0.0-0.8); MONO % 5.3 % (2.0-8.0); NEUTROPHILS # 6.7 10^3/uL (1.5-8.5); NEUTROPHILS % 80.8 % (36.0-66.0); PLATELET COUNT, AUTOMATED 230 10^3/uL (150-450); RED BLOOD COUNT 3.53 10^6/uL (4.00-5.40); WHITE BLOOD COUNT 8.2 10^3/uL (4.0-10.0)
[2023-04-04 02:28] LABS: INR 0.98; PROTHROMBIN TIME 12.7 SECONDS (12.5-14.5)
[2023-04-04 02:34] LABS: LIPASE 48 U/L (12-53)
[2023-04-04 02:36] LABS: ALBUMIN 3.6 G/DL (3.2-5.2); ALKALINE PHOSPHATASE 103 U/L (46-116); ALT/SGPT 12 U/L (7.0-40); AST/SGOT 15 U/L (<34); BILIRUBIN,DIRECT 0.1 MG/DL (<0.4); BILIRUBIN,TOTAL 0.4 MG/DL (0.3-1.2); BLOOD UREA NITROGEN 25 MG/DL (9-23); CALCIUM LEVEL 9.3 MG/DL (8.3-10.6); CARBON DIOXIDE LEVEL 25 MMOL/L (20-31); CHLORIDE LEVEL 107 MMOL/L (98-107); CK-MB VALUE MASS < 1.0 NG/ML (<3.6); CPK CREATINE PHOSPHOKINASE 108 U/L (34-145); CREATININE FOR GFR 0.88 MG/DL (0.55-1.30); GLOMERULAR FILTRATION RATE > 60.0 (>32); GLUCOSE, FASTING 106 MG/DL (74-106); MB/CK RELATIVE INDEX 0.92 (< OR =4); POTASSIUM SERUM 4.1 MMOL/L (3.5-5.1); SODIUM LEVEL 139 MMOL/L (136-145); TOTAL PROTEIN 7.1 G/DL (5.7-8.2)
[2023-04-04] MEDS ORDERED: ISOVUE-370 76% 100ML VIAL As Ordered ONE (03:51)
[2023-04-04 04:54] LABS: CK-MB VALUE MASS < 1.0 NG/ML (<3.6)
[2023-04-04 04:55] LABS: CPK CREATINE PHOSPHOKINASE 121 U/L (34-145); MB/CK RELATIVE INDEX 0.82 (< OR =4)
[2023-04-04] MEDS: ONDANSETRON 4MG 2ML VIAL IV ONE (05:04)
[2023-04-04] MEDS: MORPHINE 4 MG/ML 1ML VIAL IV PRN (05:05)
[2023-04-04 08:01] VITALS: BP 141/64; TEMP 97.8; O2SAT 100
== END 2023-04-04 09:36 | disposition home or self-care (01) ==
LOC: M ED 01:09
DX: S32.511A Fracture of superior rim of right pubis, initial encounter for closed fracture (principal); S32.010A Wedge compression fracture of first lumbar vertebra, initial encounter for closed fracture; S32.020A Wedge compression fracture of second lumbar vertebra, initial encounter for closed fracture; S32.030A Wedge compression fracture of third lumbar vertebra, initial encounter for closed fracture; W19.XXXA Unspecified fall, initial encounter; J91.8 Pleural effusion in other conditions classified elsewhere; K57.30 Diverticulosis of large intestine without perforation or abscess without bleeding; I44.0 Atrioventricular block, first degree; I44.4 Left anterior fascicular block; K21.9 Gastro-esophageal reflux disease without esophagitis; Z79.811 Long term (current) use of aromatase inhibitors; Z79.02 Long term (current) use of antithrombotics/antiplatelets; Z79.82 Long term (current) use of aspirin; Z79.899 Other long term (current) drug therapy; Z86.79 Personal history of other diseases of the circulatory system
CPT/HCPCS: 51702; 70450; 71260; 72125; 74177; 80048; 80076; 81002; 82550; 82553; 83690; 84484; 85025; 85610; 85730; 87040; 87486; 87581; 87633; 87798; 93005; 93041; 96374; 96375; 99285; J2405; Q9967

== ENCOUNTER → 2023-04-07 | Outpatient (CLI) | payer MEDICARE, BC, OTHER | LOC: M RAD 08:25 | PROVIDERS: ATTEND Internal Medicine | DX: R07.81 Pleurodynia (principal); J43.9 Emphysema, unspecified; J84.9 Interstitial pulmonary disease, unspecified; Z87.81 Personal history of (healed) traumatic fracture ==

== ENCOUNTER → 2023-06-11 | Outpatient (CLI) | payer MEDICARE, BC, OTHER | LOC: M SOG 09:41 | PROVIDERS: ATTEND Orthopaedic Surgery | DX: S42.201P Unspecified fracture of upper end of right humerus, subsequent encounter for fracture with malunion (principal); S62.616A Displaced fracture of proximal phalanx of right little finger, initial encounter for closed fracture; S92.511D Displaced fracture of proximal phalanx of right lesser toe(s), subsequent encounter for fracture with routine healing; M19.071 Primary osteoarthritis, right ankle and foot; Y93.9 Activity, unspecified; Y92.9 Unspecified place or not applicable ==

== ENCOUNTER → 2023-06-28 | Outpatient (REF) | payer MEDICARE, BC, OTHER ==
[~2023-06-28] MED LIST changes: +IMIP1TAB3 PO; -IMIP25TA3 PO
[2023-06-28 18:28] LABS: HEMATOCRIT 31.2 % (36.0-47.0); HEMOGLOBIN 9.3 g/dl (12.0-15.5); MEAN CORPUSCULAR HEMOGLOBIN 26.4 pg (27.0-33.0); MEAN CORPUSCULAR HGB CONC 29.8 g/dl (32.0-36.5); MEAN CORPUSCULAR VOLUME 88.6 fl (80.0-96.0); PLATELET COUNT, AUTOMATED 276 10^3/uL (150-450); RED BLOOD COUNT 3.52 10^6/uL (4.00-5.40); WHITE BLOOD COUNT 5.5 10^3/uL (4.0-10.0)
[2023-06-28 18:56] LABS: URIC ACID 5.8 MG/DL (3.1-7.8)
[2023-06-28 18:59] LABS: CALCIUM LEVEL 9.1 MG/DL (8.3-10.6); CREATININE FOR GFR 1.08 MG/DL (0.55-1.30); GLOMERULAR FILTRATION RATE 51.3 (>32); POTASSIUM SERUM 4.6 MMOL/L (3.5-5.1)
== END ==
PROVIDERS: ATTEND Physician Assistant
DX: M10.9 Gout, unspecified (principal)

== ENCOUNTER → 2023-06-29 | Outpatient (REF) | payer MEDICARE, BC | PROVIDERS: ATTEND Internal Medicine | DX: R22.41 Localized swelling, mass and lump, right lower limb (principal) ==

== ENCOUNTER → 2023-07-23 | Outpatient (CLI) | payer MEDICARE, BC | LOC: M SOG 07:51 | PROVIDERS: ATTEND Orthopaedic Surgery | DX: S62.616D Displaced fracture of proximal phalanx of right little finger, subsequent encounter for fracture with routine healing (principal); Y93.9 Activity, unspecified; Y92.9 Unspecified place or not applicable ==

== ENCOUNTER → 2023-09-29 | Outpatient (REF) | payer MEDICARE, BC ==
[2023-09-29 18:17] LABS: BASO # 0.1 10^3/uL (0.0-0.2); BASO % 0.7 % (0.0-1.0); EOS # 0.1 10^3/uL (0.0-0.5); EOS % 0.7 % (0.0-3.0); HEMATOCRIT 32.3 % (36.0-47.0); HEMOGLOBIN 10.4 g/dl (12.0-15.5); LYMPH # 0.8 10^3/uL (1.5-5.0); LYMPH % 12.4 % (24.0-44.0); MEAN CORPUSCULAR HEMOGLOBIN 29.4 pg (27.0-33.0); MEAN CORPUSCULAR HGB CONC 32.2 g/dl (32.0-36.5); MEAN CORPUSCULAR VOLUME 91.2 fl (80.0-96.0); MONO # 0.6 10^3/uL (0.0-0.8); MONO % 8.6 % (2.0-8.0); NEUTROPHILS # 5.2 10^3/uL (1.5-8.5); NEUTROPHILS % 77.2 % (36.0-66.0); PLATELET COUNT, AUTOMATED 234 10^3/uL (150-450); RED BLOOD COUNT 3.54 10^6/uL (4.00-5.40); WHITE BLOOD COUNT 6.8 10^3/uL (4.0-10.0)
[2023-09-29 18:47] LABS: CALCIUM LEVEL 8.7 MG/DL (8.3-10.6); CREATININE FOR GFR 1.01 MG/DL (0.55-1.30); GLOMERULAR FILTRATION RATE 55.5 (>32); POTASSIUM SERUM 4.1 MMOL/L (3.5-5.1)
== END ==
PROVIDERS: ATTEND Physician Assistant
DX: R68.83 Chills (without fever) (principal)

== ENCOUNTER → 2023-11-13 | Outpatient (REF) | payer MEDICARE, BC ==
[2023-11-14 07:22] LABS: APPEARANCE, URINE CLOUDY (CLEAR); BACTERIA, URINE AUTO 1+ (NEGATIVE); BILIRUBIN, URINE AUTO NEGATIVE (NEGATIVE); BLOOD, URINE BLOOD NEGATIVE (NEGATIVE); COLOR, URINE YELLOW (YELLOW); GLUCOSE, URINE (UA) AUTO NEGATIVE (NEGATIVE); KETONE, URINE AUTO NEGATIVE (NEGATIVE); LEUKOCYTE ESTERASE, URINE AUTO 3+ (NEGATIVE); NITRITE, URINE AUTO POSITIVE (NEGATIVE); PROTEIN, URINE AUTO 1+ mg/dL (NEGATIVE); RBC, URINE AUTO 53 /HPF (0-3); SPECIFIC GRAVITY URINE AUTO 1.019 (1.002-1.035); SQUAMOUS EPITHELIAL CELL UR AU 3 /HPF (0-6); UROBILINOGEN, URINE AUTO 0.2 mg/dL (0.0-2.0); WBC, URINE AUTO TNTC /HPF (0-3)
== END ==
PROVIDERS: ATTEND Internal Medicine
DX: R82.998 Other abnormal findings in urine (principal)

== ENCOUNTER → 2023-12-06 | Outpatient (REF) | payer MEDICARE, BC ==
[~2023-12-06] MED LIST changes: +GABA-1172 PO; -GABA-282 PO; -IMIP1TAB3 PO; +IMIP25TA13 PO
== END ==
PROVIDERS: ATTEND Physician Assistant
DX: R05.9 Cough, unspecified (principal)

== ENCOUNTER → 2023-12-06 | Outpatient (REF) | payer MEDICARE, BC | PROVIDERS: ATTEND Physician Assistant | DX: R05.9 Cough, unspecified (principal) ==

== ENCOUNTER → 2023-12-06 | Outpatient (REF) | payer MEDICARE, BC ==
[2023-12-06 17:53] LABS: HEMATOCRIT 33.4 % (36.0-47.0); HEMOGLOBIN 10.4 g/dl (12.0-15.5); MEAN CORPUSCULAR HEMOGLOBIN 30.4 pg (27.0-33.0); MEAN CORPUSCULAR HGB CONC 31.1 g/dl (32.0-36.5); MEAN CORPUSCULAR VOLUME 97.7 fl (80.0-96.0); PLATELET COUNT, AUTOMATED 192 10^3/uL (150-450); RED BLOOD COUNT 3.42 10^6/uL (4.00-5.40)
[2023-12-06 18:19] LABS: CREATININE FOR GFR 1.05 MG/DL (0.55-1.30); GLOMERULAR FILTRATION RATE 52.9 (>32); POTASSIUM SERUM 3.9 MMOL/L (3.5-5.1)
== END ==
PROVIDERS: ATTEND Physician Assistant
DX: R05.9 Cough, unspecified (principal); Z79.899 Other long term (current) drug therapy

== ENCOUNTER 2024-02-16 18:26 | Emergency (ER) | payer MEDICARE, BC ==
[2024-02-16 18:36] VITALS: BP 208/93; TEMP 98.7; O2SAT 98
== END 2024-02-16 22:23 | disposition home or self-care (01) ==
LOC: M ED 18:26
DX: S72.302A Unspecified fracture of shaft of left femur, initial encounter for closed fracture (principal); Z51.5 Encounter for palliative care; W19.XXXA Unspecified fall, initial encounter; Y92.129 Unspecified place in nursing home as the place of occurrence of the external cause; Y93.9 Activity, unspecified; Y99.9 Unspecified external cause status; E78.5 Hyperlipidemia, unspecified; G30.8 Other Alzheimer's disease; J44.9 Chronic obstructive pulmonary disease, unspecified; J30.89 Other allergic rhinitis; Z66 Do not resuscitate; Z79.82 Long term (current) use of aspirin; Z79.899 Other long term (current) drug therapy; Z88.8 Allergy status to other drugs, medicaments and biological substances

== ENCOUNTER → 2024-04-05 | Outpatient (REF) | payer MEDICARE, BC | PROVIDERS: ATTEND Physician Assistant | DX: R05.9 Cough, unspecified (principal) ==

== ENCOUNTER → 2024-04-05 | Outpatient (REF) | payer MEDICARE, BC | PROVIDERS: ATTEND Physician Assistant | DX: R05.9 Cough, unspecified (principal) ==

== ENCOUNTER → 2024-04-07 | Outpatient (REF) | payer MEDICARE, BC ==
[2024-04-07 17:34] LABS: BASO % 0.5 % (0.0-1.0); EOS # 0.1 10^3/uL (0.0-0.5); EOS % 1.4 % (0.0-3.0); HEMATOCRIT 30.8 % (36.0-47.0); HEMOGLOBIN 9.5 g/dl (12.0-15.5); LYMPH % 11.1 % (24.0-44.0); MEAN CORPUSCULAR HEMOGLOBIN 30.8 pg (27.0-33.0); MEAN CORPUSCULAR HGB CONC 30.8 g/dl (32.0-36.5); MONO # 0.5 10^3/uL (0.0-0.8); MONO % 5.6 % (2.0-8.0); NEUTROPHILS # 7.1 10^3/uL (1.5-8.5); NEUTROPHILS % 81.1 % (36.0-66.0); PLATELET COUNT, AUTOMATED 289 10^3/uL (150-450); RED BLOOD COUNT 3.08 10^6/uL (4.00-5.40); WHITE BLOOD COUNT 8.7 10^3/uL (4.0-10.0)
[2024-04-07 17:38] LABS: ERYTHROCYTE SEDIMENTATION RATE 47 mm/hr (0-30)
[2024-04-07 17:56] LABS: C REACTIVE PROTEIN QUANTITATIV 1.17 MG/DL (<1.0)
[2024-04-07 17:57] LABS: BLOOD UREA NITROGEN 29 MG/DL (9-23); CALCIUM LEVEL 9.8 MG/DL (8.3-10.6); CARBON DIOXIDE LEVEL 25 MMOL/L (20-31); CHLORIDE LEVEL 105 MMOL/L (98-107); CREATININE FOR GFR 0.74 MG/DL (0.55-1.30); GLOMERULAR FILTRATION RATE > 60.0 (>32); GLUCOSE, FASTING 108 MG/DL (74-106); POTASSIUM SERUM 4.4 MMOL/L (3.5-5.1); SODIUM LEVEL 142 MMOL/L (136-145)
== END ==
PROVIDERS: ATTEND Internal Medicine
DX: E86.0 Dehydration (principal)

== ENCOUNTER → 2024-04-10 | Outpatient (REF) | payer MEDICARE, BC | PROVIDERS: ATTEND Physician Assistant | DX: R05.9 Cough, unspecified (principal); I27.20 Pulmonary hypertension, unspecified ==

== ENCOUNTER → 2024-04-10 | Outpatient (REF) | payer MEDICARE, BC ==
[2024-04-10 09:29] LABS: BASO # 0.1 10^3/uL (0.0-0.2); BASO % 0.8 % (0.0-1.0); EOS # 0.4 10^3/uL (0.0-0.5); EOS % 3.9 % (0.0-3.0); HEMATOCRIT 31.3 % (36.0-47.0); HEMOGLOBIN 9.5 g/dl (12.0-15.5); LYMPH % 10.6 % (24.0-44.0); MEAN CORPUSCULAR HEMOGLOBIN 30.2 pg (27.0-33.0); MEAN CORPUSCULAR HGB CONC 30.4 g/dl (32.0-36.5); MEAN CORPUSCULAR VOLUME 99.4 fl (80.0-96.0); MONO # 0.5 10^3/uL (0.0-0.8); MONO % 5.2 % (2.0-8.0); NEUTROPHILS # 7.2 10^3/uL (1.5-8.5); NEUTROPHILS % 79.2 % (36.0-66.0); PLATELET COUNT, AUTOMATED 299 10^3/uL (150-450); RED BLOOD COUNT 3.15 10^6/uL (4.00-5.40)
[2024-04-10 09:35] LABS: ERYTHROCYTE SEDIMENTATION RATE 49 mm/hr (0-30)
[2024-04-10 09:50] LABS: C REACTIVE PROTEIN QUANTITATIV 2.66 MG/DL (<1.0)
[2024-04-10 09:51] LABS: BLOOD UREA NITROGEN 27 MG/DL (9-23); CALCIUM LEVEL 9.4 MG/DL (8.3-10.6); CARBON DIOXIDE LEVEL 24 MMOL/L (20-31); CHLORIDE LEVEL 105 MMOL/L (98-107); CREATININE FOR GFR 0.77 MG/DL (0.55-1.30); GLOMERULAR FILTRATION RATE > 60.0 (>32); GLUCOSE, FASTING 130 MG/DL (74-106); POTASSIUM SERUM 4.3 MMOL/L (3.5-5.1); SODIUM LEVEL 138 MMOL/L (136-145)
== END ==
PROVIDERS: ATTEND Internal Medicine
DX: E86.0 Dehydration (principal)

== ENCOUNTER → 2024-08-29 | Outpatient (REF) | payer MEDICARE, BC ==
[~2024-08-29] MED LIST changes: +MAG30ORA18 FT; -MYLASSUD FT
== END ==
PROVIDERS: ATTEND Physician Assistant
DX: R05.9 Cough, unspecified (principal)

== ENCOUNTER → 2024-08-29 | Outpatient (REF) | payer MEDICARE, BC | PROVIDERS: ATTEND Physician Assistant | DX: R05.9 Cough, unspecified (principal) ==

== ENCOUNTER → 2024-11-27 | Outpatient (REF) | payer MEDICARE, BC ==
[~2024-11-27] MED LIST changes: -EZET10TA21 PO; +EZET10TA57 PO
== END ==
PROVIDERS: ATTEND Physician Assistant
DX: R06.02 Shortness of breath (principal); I70.0 Atherosclerosis of aorta; J98.4 Other disorders of lung

== ENCOUNTER → 2024-11-27 | Outpatient (REF) | payer MEDICARE, BC | PROVIDERS: ATTEND Internal Medicine | DX: R06.02 Shortness of breath (principal); I70.0 Atherosclerosis of aorta; J98.4 Other disorders of lung ==